=== PATIENT | female | born 1975 | race Caucasian/White ===

== ENCOUNTER 2018-02-06 06:55 | Observation (INO) | payer OTHER ==
[2018-02-06] MEDS ORDERED: ONDANSETRON ODT 8 MG TAB.RAPDIS PO STA (07:25)
[2018-02-06] MEDS ORDERED: SODIUM CHLORIDE 0.9% 500 ML IV STA (07:25)
--- NOTE | 2018-02-06 07:30 | ED ---
General Adult HPI - General Chief complaint: Abdominal Pain Stated complaint: ABD PAIN Time Seen by Provider: 02/06/18 07:00 Source: patient, EMS, RN notes reviewed, old records reviewed Mode of arrival: EMS Limitations: no limitations - History of Present Illness Initial comments: 42-year-old female presenting with epigastric abdominal pain which began approximately 12 hours prior to arrival. Initially pain was mild and has progressively worsened over the past 12 hours. Patient had several episodes of nausea and dry heaving prior to arrival. She has vomited prior to my evaluation once in the emergency department. Denies fever or chills. States the pain is epigastric and radiates to the right side into her back. She has past medical history of cholecystectomy. Denies fever or chills. Denies changes in her bowels. Denies chest pain or shortness of breath. - Related Data Home Medications Medication Instructions Recorded Confirmed No Known Home Medications 02/06/18 02/06/18 Allergies Allergy/AdvReac Type Severity Reaction Status Date / Time banana Allergy Rash/Hives Verified 02/06/18 08:43 tetanus immune globulin Allergy Anaphylaxis Verified 02/06/18 08:43 Review of Systems ROS Statement: Those systems with pertinent positive or pertinent negative responses have been documented in the HPI. ROS Other: All systems not noted in ROS Statement are negative. Past Medical History Past Medical History: No Reported History History of Any Multi-Drug Resistant Organisms: None Reported Past Surgical History: Cholecystectomy, Joint Replacement Past Psychological History: No Psychological Hx Reported Smoking Status: Current every day smoker Past Alcohol Use History: Occasional Past Drug Use History: None Reported General Exam Limitations: no limitations General appearance: alert, in no apparent distress Head exam: Present: atraumatic, normocephalic Eye exam: Present: normal appearance, PERRL ENT exam: Present: normal exam Neck exam: Present: normal inspection. Absent: tenderness, meningismus Respiratory exam: Present: normal lung sounds bilaterally. Absent: respiratory distress, wheezes Cardiovascular Exam: Present: regular rate, normal rhythm GI/Abdominal exam: Present: soft, tenderness (Moderate epigastric tenderness no rebound or guarding). Absent: distended, guarding, rebound Extremities exam: Present: normal inspection, normal capillary refill. Absent: pedal edema Neurological exam: Present: alert, oriented X3, CN II-XII intact. Absent: motor sensory deficit Psychiatric exam: Present: normal affect, normal mood Skin exam: Present: warm, diaphoretic. Absent: cyanosis Course Vital Signs 02/06/18 02/06/18 02/06/18 06:58 08:30 09:17 Temperature 98 F Pulse Rate 78 63 67 Respiratory 18 22 20 Rate Blood Pressure 110/73 132/67 121/69 O2 Sat by Pulse 97 94 L 98 Oximetry 02/06/18 02/06/18 10:03 10:48 Temperature Pulse Rate 62 72 Respiratory 18 18 Rate Blood Pressure 114/59 90/56 O2 Sat by Pulse 96 98 Oximetry - Reevaluation(s) Reevaluation #1: 02/06/18 0930 Patient has severe abdominal pain requiring multiple doses of IV pain medication. EKG Findings - EKG Comments: EKG Findings:: EKG: Sinus rhythm with low voltage QRS, rate of 66, WI interval 108, QRS duration 78, QTC 427, Baseline artifact secondary to tremor, no ST segment elevation or depression Medical Decision Making - Medical Decision Making 42-year-old female with epigastric abdominal pain radiating to her back. Pain initially is moderate to severe, becomes more severe while in the emergency department. EKG is nonischemic. X-rays obtained of the abdomen which is negative for obstruction or free air. CBC and CMP are unremarkable. Lactic acid is normal. Patient's pain becomes very severe, CT angiography is obtained for concern for dissection, this is negative. There is no acute intra- abdominal pathology noted on CT. No definitive cause for the patient's pain is identified. She will be kept in observation for reevaluation and pain control. - Lab Data Result diagrams: 02/06/18 07:53 02/06/18 07:53 Lab Results 02/06/18 02/06/18 02/06/18 Range/Units 07:53 07:53 07:53 WBC 10.6 (3.8-10.6) k/uL RBC 4.36 (3.80-5.40) m/uL Hgb 13.3 (11.4-16.0) gm/dL Hct 40.6 (34.0-46.0) % MCV 93.1 (80.0-100.0) fL MCH 30.5 (25.0-35.0) pg MCHC 32.7 (31.0-37.0) g/dL RDW 13.7 (11.5-15.5) % Plt Count 228 (150-450) k/uL Neutrophils % 73 % Lymphocytes % 21 % Monocytes % 3 % Eosinophils % 1 % Basophils % 0 % Neutrophils # 7.8 H (1.3-7.7) k/uL Lymphocytes # 2.3 (1.0-4.8) k/uL Monocytes # 0.3 (0-1.0) k/uL Eosinophils # 0.1 (0-0.7) k/uL Basophils # 0.0 (0-0.2) k/uL PT (9.0-12.0) sec INR (<1.2) APTT (22.0-30.0) sec Sodium 137 (137-145) mmol/L Potassium 4.6 (3.5-5.1) mmol/L Chloride 110 H (98-107) mmol/L Carbon Dioxide 19 L (22-30) mmol/L Anion Gap 8 mmol/L BUN 10 (7-17) mg/dL Creatinine 0.65 (0.52-1.04) mg/dL Est GFR (CKD-EPI)AfAm >90 (>60 ml/min/1.73 sqM) Est GFR (CKD-EPI)NonAf >90 (>60 ml/min/1.73 sqM) Glucose 104 H (74-99) mg/dL Plasma Lactic Acid Josef 1.5 (0.7-2.0) mmol/L Calcium 9.7 (8.4-10.2) mg/dL Total Bilirubin 0.4 (0.2-1.3) mg/dL AST 24 (14-36) U/L ALT 25 (9-52) U/L Alkaline Phosphatase 86 (38-126) U/L Troponin I (0.000-0.034) ng/mL Total Protein 6.2 L (6.3-8.2) g/dL Albumin 3.6 (3.5-5.0) g/dL Amylase 38 (30-110) U/L Lipase 19 L (23-300) U/L Urine Color Urine Appearance (Clear) Urine pH (5.0-8.0) Ur Specific Lititz (1.001-1.035) Urine Protein (Negative) Urine Glucose (UA) (Negative) Urine Ketones (Negative) Urine Blood (Negative) Urine Nitrite (Negative) Urine Bilirubin (Negative) Urine Urobilinogen (<2.0) mg/dL Ur Leukocyte Esterase (Negative) Urine RBC (0-5) /hpf Urine WBC (0-5) /hpf Ur Squamous Epith Cells (0-4) /hpf Urine Bacteria (None) /hpf Urine Mucus (None) /hpf 02/06/18 02/06/18 02/06/18 Range/Units 07:53 07:53 08:40 WBC (3.8-10.6) k/uL RBC (3.80-5.40) m/uL Hgb (11.4-16.0) gm/dL Hct (34.0-46.0) % MCV (80.0-100.0) fL MCH (25.0-35.0) pg MCHC (31.0-37.0) g/dL RDW (11.5-15.5) % Plt Count (150-450) k/uL Neutrophils % % Lymphocytes % % Monocytes % % Eosinophils % % Basophils % % Neutrophils # (1.3-7.7) k/uL Lymphocytes # (1.0-4.8) k/uL Monocytes # (0-1.0) k/uL Eosinophils # (0-0.7) k/uL Basophils # (0-0.2) k/uL PT 9.6 (9.0-12.0) sec INR 1.0 (<1.2) APTT 23.0 (22.0-30.0) sec Sodium (137-145) mmol/L Potassium (3.5-5.1) mmol/L Chloride (98-107) mmol/L Carbon Dioxide (22-30) mmol/L Anion Gap mmol/L BUN (7-17) mg/dL Creatinine (0.52-1.04) mg/dL Est GFR (CKD-EPI)AfAm (>60 ml/min/1.73 sqM) Est GFR (CKD-EPI)NonAf (>60 ml/min/1.73 sqM) Glucose (74-99) mg/dL Plasma Lactic Acid Josef (0.7-2.0) mmol/L Calcium (8.4-10.2) mg/dL Total Bilirubin (0.2-1.3) mg/dL AST (14-36) U/L ALT (9-52) U/L Alkaline Phosphatase (38-126) U/L Troponin I <0.012 (0.000-0.034) ng/mL Total Protein (6.3-8.2) g/dL Albumin (3.5-5.0) g/dL Amylase (30-110) U/L Lipase (23-300) U/L Urine Color Yellow Urine Appearance Cloudy H (Clear) Urine pH 6.0 (5.0-8.0) Ur Specific Lititz 1.013 (1.001-1.035) Urine Protein Negative (Negative) Urine Glucose (UA) Negative (Negative) Urine Ketones Negative (Negative) Urine Blood Small H (Negative) Urine Nitrite Negative (Negative) Urine Bilirubin Negative (Negative) Urine Urobilinogen <2.0 (<2.0) mg/dL Ur Leukocyte Esterase Moderate H (Negative) Urine RBC 1 (0-5) /hpf Urine WBC 6 H (0-5) /hpf Ur Squamous Epith Cells 5 H (0-4) /hpf Urine Bacteria Rare H (None) /hpf Urine Mucus Occasional H (None) /hpf Disposition Clinical Impression: Intractable abdominal pain Disposition: [facility] Condition: Stable Is patient prescribed a controlled substance at d/c from ED?: No Referrals: Sanam Jensen MD [Primary Care Provider] - 1-2 days Decision to Admit Reason: Admit from EC Decision Date: 02/06/18 Decision Time: 10:30
[2018-02-06] MEDS: MORPHINE SULFATE 4 MG/ML SYRINGE IV STA ×2 (07:56→08:33)
[2018-02-06] MEDS ORDERED: ONDANSETRON 4 MG/2 ML VIAL IVP STA (07:58)
[2018-02-06 08:02] LABS: Basophils % (A) 0 %; Eosinophils # (A) 0.1 k/uL (0-0.7); Eosinophils % (A) 1 %; HCT 40.6 % (34.0-46.0); HGB 13.3 gm/dL (11.4-16.0); Lymphocytes # (A) 2.3 k/uL (1.0-4.8); Lymphocytes % (A) 21 %; MCH 30.5 pg (25.0-35.0); MCHC 32.7 g/dL (31.0-37.0); MCV 93.1 fL (80.0-100.0); Mean Platelet Volume 6.7; Monocytes # (A) 0.3 k/uL (0-1.0); Monocytes % (A) 3 %; Neutrophils # (A) 7.8 k/uL (1.3-7.7); Neutrophils % (A) 73 %; Platelet Count 228 k/uL (150-450); RBC 4.36 m/uL (3.80-5.40); RDW 13.7 % (11.5-15.5); WBC 10.6 k/uL (3.8-10.6)
[2018-02-06 08:12] LABS: Prothrombin Time 9.6 sec (9.0-12.0)
[2018-02-06 08:34] LABS: ALT 25 U/L (9-52); AST 24 U/L (14-36); Albumin 3.6 g/dL (3.5-5.0); Alkaline Phosphatase 86 U/L (38-126); Amylase 38 U/L (30-110); Anion Gap 8 mmol/L; Blood Urea Nitrogen 10 mg/dL (7-17); Calcium 9.7 mg/dL (8.4-10.2); Carbon Dioxide 19 mmol/L (22-30); Chloride 110 mmol/L (98-107); Glucose 104 mg/dL (74-99); Lipase 19 U/L (23-300); Potassium 4.6 mmol/L (3.5-5.1); Sodium 137 mmol/L (137-145); Total Bilirubin 0.4 mg/dL (0.2-1.3); Total Protein 6.2 g/dL (6.3-8.2)
[2018-02-06] MEDS ORDERED: HYDROmorphone 1 MG/ML 1 ML SYRINGE IVP STA (08:45)
--- NOTE | 2018-02-06 08:45 | XR ---
EXAMINATION TYPE: XR KUB DATE OF EXAM: 02/06/2018 8:08 AM CLINICAL HISTORY: Right upper quadrant abdominal pain, vomiting, nausea and dizziness. TECHNIQUE: Single upright image of the abdomen is obtained. COMPARISON: None. FINDINGS: Scattered gas is seen in non-distended small bowel loops. Gas and fecal material is seen in non-distended colon. There is no visceromegaly, pneumoperitoneum, or abnormal calcification apprecia shantal. The lung bases are clear and the osseous structures are intact. Cholecystectomy clips are noted within the right upper quadrant. Right para midline intrauterine device is seen within the pelvis. IMPRESSION: Nonobstructive bowel gas pattern.
[2018-02-06 09:05] LABS: Appearance,Urine Cloudy (Clear); Bacteria,Urine Rare /hpf; Bilirubin,Urine Negative (Negative); Blood,Urine Small (Negative); Color,Urine Yellow; Glucose,Urine (UA) Negative (Negative); Ketones,Urine Negative (Negative); Leukocyte Esterase,Urine Moderate (Negative); Mucus,Urine Occasional /hpf; Nitrite,Urine Negative (Negative); Protein,Urine Negative (Negative); RBC,Urine 1 /hpf (0-5); Specific Gravity,Urine 1.013 (1.001-1.035); Squamous Epithelial Cell,Urine 5 /hpf (0-4); Urobilinogen,Urine <2.0 mg/dL (<2.0); WBC,Urine 6 /hpf (0-5)
--- NOTE | 2018-02-06 10:34 | CT ---
EXAMINATION TYPE: CT angio thor/abd pel aorta DATE OF EXAM: 02/06/2018 COMPARISON: None HISTORY: Severe abdominal pain CT DLP: 1932.3 mGycm, Automated exposure control for dose reduction was used. CONTRAST: Performed injected with 100 mL of Isovue 370. TECHNIQUE: Axial images were obtained at 5 mm thick sections. Reconstructed images are reviewed on [employer] computer in the coronal plane. Three-D reconstructed images performed separately on the [employer] puter by the technologist are performed. 2-D MIP imaging is reviewed. FINDINGS: Portion of the thyroid visualized is normal. No suspicious lung nodules or focal infiltrates are present. No enlarged mediastinal or hilar adenopathy is evident. The ascending aorta diameter at the level o f the main pulmonary artery is 2.8 cm. The main pulmonary artery diameter at the bifurcation is 2.[address] sections are obtained through the upper abdomen. Abdomen is essentially unremarkable. Gall bladder is surgically absent. Noncontrast imaging through the liver and spleen are unremarkable. Panc reas is unremarkable. Adrenal glands are normal. Kidneys are normal without masses cysts or hydroneph rosis. Very minimal vascular calcifications within the aorta. Vena cava is normal. Noncontrast imaging loops of bowel are normal. IUD is within the uterus. Urinary bladder is decompressed with limited evaluation. The appendix is visualized is normal. Three-D reconstructed images are reviewed. IMPRESSIONS: 1. No suspicious changes within the thoracic or abdominal aorta. No dissection is evident. No aneurys mal dilatation.
[2018-02-06] MEDS ORDERED: PANTOPRAZOLE 40 MG/10 ML VIAL IVP STA (10:49)
[2018-02-06] MEDS ORDERED: NALOXONE 0.4 MG/ML 1 ML VIAL IV PRN (10:56)
[2018-02-06] MEDS ORDERED: ONDANSETRON 4 MG/2 ML VIAL IVP PRN (10:56)
[2018-02-06] MEDS ORDERED: HYDROmorphone 0.5 MG/0.5 ML SYRINGE IVP PRN (10:56)
[2018-02-06] MEDS ORDERED: ACETAMINOPHEN TAB 325 MG TAB PO PRN (12:42)
--- NOTE | 2018-02-06 12:42 | P.HPIM ---
History of Present Illness H&P Date: 02/06/18 Chief Complaint: Epigastric pain This is a 42-year-old female with no significant past medical history who presented to the emergency room with severe epigastric pain. Patient said that her pain started a few hours prior to her arrival to the emergency room. Pain was mostly in the epigastric area and radiating to the right side of her abdomen and to her back. She described her pain as sharp. Said that he was mild initially but subsequently got a lot worse. She is rating her pain as '' 50 out of 10''in severity on a pain scale. She said that her pain was associated with nausea and one episode of vomiting in the emergency room. She reported having normal bowel movements otherwise. She denies any fevers or chills. Denies chest pain. No shortness of breath. No alcohol use. No NSAIDs use. Patient said that she had 2 or 3 similar episodes within the past 4 -5 month that she attributed to possible gas and bloating. Those episodes were a lot milder. Patient was evaluated in the emergency room and was treated with IV morphine. All of her lab work was unremarkable. The scan of the abdomen was unremarkable. Patient also underwent CT angiogram with no evidence of dissection. She is currently rating her pain as 4 out of 10. She has a history of cholecystectomy more than 10 years ago. She was seen and examined by me in the emergency room. Plan to place her on observation for GI consultation. Review of Systems Review of system: 14 points review of systems were obtained and were negative except to what were mentioned in the HPI. Past Medical History Past Medical History: No Reported History History of Any Multi-Drug Resistant Organisms: None Reported Past Surgical History: Cholecystectomy, Joint Replacement Past Psychological History: No Psychological Hx Reported Smoking Status: Current every day smoker Past Alcohol Use History: Occasional Past Drug Use History: None Reported - Past Family History Mother Family Medical History: No Reported History Medications and Allergies Home Medications Medication Instructions Recorded Confirmed Type No Known Home Medications 02/06/18 02/06/18 History Allergies Allergy/AdvReac Type Severity Reaction Status Date / Time banana Allergy Rash/Hives Verified 02/06/18 08:43 nicotine Allergy Rash/Hives Verified 02/06/18 12:33 tetanus immune globulin Allergy Anaphylaxis Verified 02/06/18 08:43 Physical Exam Vitals: Vital Signs Temp Pulse Pulse Resp BP BP Pulse Ox 02/06/18 12:17 98.1 F 72 16 124/75 98 02/06/18 12:03 97.4 F L 69 18 105/56 96 02/06/18 10:48 72 18 90/56 98 02/06/18 10:03 62 18 114/59 96 02/06/18 09:17 67 20 121/69 98 02/06/18 08:30 63 22 132/67 94 L 02/06/18 06:58 98 F 78 18 110/73 97 Intake and Output 02/05/18 02/06/18 02/06/18 22:59 06:59 14:59 Other: Weight 81.647 kg 90.4 kg General: The patient is awake and alert, in no distress Eye: there is normal conjunctiva bilaterally. Neck: The neck is supple, there is no JVD. Cardiovascular: Normal S1-S2, no S3-S4, no murmurs. Respiratory: Lungs clear to auscultation bilaterally Gastrointestinal: Abdomen is soft, nondistended, mild to moderate tenderness in the epigastric area Musculoskeletal: There is no pedal edema. Neurological:. Speech is normal. Skin: Skin is warm and dry Results CBC & Chem 7: 02/06/18 07:53 02/06/18 07:53 Labs: Abnormal Lab Results - Last 24 Hours (Table) 02/06/18 02/06/18 02/06/18 Range/Units 07:53 07:53 08:40 Neutrophils # 7.8 H (1.3-7.7) k/uL Chloride 110 H (98-107) mmol/L Carbon Dioxide 19 L (22-30) mmol/L Glucose 104 H (74-99) mg/dL Total Protein 6.2 L (6.3-8.2) g/dL Lipase 19 L (23-300) U/L Urine Appearance Cloudy H (Clear) Urine Blood Small H (Negative) Ur Leukocyte Esterase Moderate H (Negative) Urine WBC 6 H (0-5) /hpf Ur Squamous Epith Cells 5 H (0-4) /hpf Urine Bacteria Rare H (None) /hpf Urine Mucus Occasional H (None) /hpf Thrombosis Risk Factor Assmnt - Choose All That Apply Any of the Below Risk Factors Present?: Yes Each Factor Represents 1 point: Age 41-60 years, Obesity (BMI >25) Thrombosis Risk Factor Assessment Total Risk Factor Score: 2 Thrombosis Risk Factor Assessment Level: Low Risk Assessment and Plan Assessment: 1. Severe epigastric pain, now improved. Exact etiology unclear. Need to rule out peptic ulcer disease. Continue IV Protonix for now. Gastroenterology consulted. All of her lab work is within acceptable range. Computed tomography scan of the abdomen with no acute findings. We will continue clear liquids for now. 2. Uncomplicated urinary tract infection, we'll start IV ceftriaxone 1 g once a day 3. Chronic migraine headache 4. DVT prophylaxis with subcu heparin Today, I reviewed her medication list and lab work results. I updated the patient about her current clinical condition. Awaiting GI evaluation. Continue IV fluid hydration, antiemetic, and pain control as needed.
[2018-02-06] MEDS: SODIUM CHLORIDE 0.9% 1,000 ML IV SCH (12:49)
[2018-02-06] MEDS ORDERED: cefTRIAXone IN SWFI 1,000 MG/10 ML SYRINGE IVP SCH (13:00)
--- NOTE | 2018-02-06 15:18 | P.CONS ---
History of Present Illness - Reason for Consult Consult date: 02/06/18 Abdominal pain Requesting physician: Isatu Wilks - History of Present Illness 42-year-old female with a history of cholecystectomy nicotine cigarette dependency admitted with acute on chronic epigastric abdominal pain for the last 3 or 4 months as well as uncomplicated UTI. 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 3-4 months ago she had some intermittent vague mid abdominal/midepigastric discomfort without fever chills hematemesis hematochezia melena diarrhea or constipation. Nausea with dry heaves. Denies chest pain or shortness of breath. No history of this type of pain. No history of EGD colonoscopy. Hemoglobin 13.3. White count 10.6. INR 1.0. BUN 10. Creatinine 0.6. LFTs lipase within normal limits. Thoracic CT no dissection and no aneurysmal dilatation. Review of Systems Constitutional: Denies fever, chills, sweats, weight gain, or loss. HEENT: Negative for migraines, blurred vision or loss, earaches, drainage, tinnitus, oral mucosal lesions, dysphagia, or odynophagia. CARDIAC: Negative for chest pain, arrhythmias, or palpitation. RESPIRATORY: Negative for shortness of breath, hemoptysis, cough, or sputum production. GI: See HPI for pertinent findings. : Negative for hematuria, urgency, frequency, polyuria, or dysuria. GYNc: Denies possibility of . Negative vaginal discharge. MUSCULOSKELETAL: Negative for muscle aches, swelling, arthritis, and arthralgias. NEUROLOGIC: Negative for stroke or TIA. ENDOCRINE: Negative for thyroid problems. SKIN: Negative for rash or itching. PSYCHIATRIC: Negative history for depression and anxiety Past Medical History Past Medical History: No Reported History History of Any Multi-Drug Resistant Organisms: None Reported Past Surgical History: Cholecystectomy, Joint Replacement Past Psychological History: No Psychological Hx Reported Smoking Status: Current every day smoker Past Alcohol Use History: Occasional Past Drug Use History: None Reported - Past Family History Mother Family Medical History: No Reported History Medications and Allergies Home Medications Medication Instructions Recorded Confirmed Type No Known Home Medications 02/06/18 02/06/18 History Allergies Allergy/AdvReac Type Severity Reaction Status Date / Time banana Allergy Rash/Hives Verified 02/06/18 08:43 nicotine Allergy Rash/Hives Verified 02/06/18 12:33 tetanus immune globulin Allergy Anaphylaxis Verified 02/06/18 08:43 Physical Exam Vitals: Vital Signs Temp Pulse Pulse Resp BP BP Pulse Ox 02/06/18 12:17 98.1 F 72 16 124/75 98 02/06/18 12:03 97.4 F L 69 18 105/56 96 02/06/18 10:48 72 18 90/56 98 02/06/18 10:03 62 18 114/59 96 02/06/18 09:17 67 20 121/69 98 02/06/18 08:30 63 22 132/67 94 L 02/06/18 06:58 98 F 78 18 110/73 97 Intake and Output 02/06/18 02/06/18 02/06/18 06:59 14:59 22:59 Other: # Voids 1 Weight 81.647 kg 90.4 kg General appearance: The patient is alert, oriented, in no acute distress. HET: Head is normocephalic and atraumatic. Pupils are equal and reactive. Oropharynx is clear without lesions. Neck: Supple without lymphadenopathy. Trachea midline. Heart: S1 S2. Regular rate and rhythm. Lungs: No crackles or wheezes are heard. Abdomen: Soft, very mild tenderness in the midepigastrium, nondistended with bowel sounds. No peritoneal signs. No palpable organomegaly or masses. Extremities: Normal skin color and turgor. No cyanosis, rash, ulceration, clubbing, or edema. Radial and pedal pulses are 2/4 bilaterally. Neurological: No focal deficits. Strength and sensation are grossly intact. Results CBC & Chem 7: 02/06/18 07:53 02/06/18 07:53 Labs: Abnormal Lab Results - Last 24 Hours (Table) 02/06/18 02/06/18 02/06/18 Range/Units 07:53 07:53 08:40 Neutrophils # 7.8 H (1.3-7.7) k/uL Chloride 110 H (98-107) mmol/L Carbon Dioxide 19 L (22-30) mmol/L Glucose 104 H (74-99) mg/dL Total Protein 6.2 L (6.3-8.2) g/dL Lipase 19 L (23-300) U/L Urine Appearance Cloudy H (Clear) Urine Blood Small H (Negative) Ur Leukocyte Esterase Moderate H (Negative) Urine WBC 6 H (0-5) /hpf Ur Squamous Epith Cells 5 H (0-4) /hpf Urine Bacteria Rare H (None) /hpf Urine Mucus Occasional H (None) /hpf Comments: Thoracic CT report reviewed by Dr. Dobson Assessment and Plan (1) Intractable abdominal pain Narrative/Plan: 42-year-old female presents with epigastric abdominal pain uncomplicated UTI. Etiology unclear possible GERD possible peptic ulcer disease possible IBS patient has been under stress with recent passing of her mother 6 weeks ago and his primary caregiver for her father. Current Visit: Yes Status: Acute Code(s): R10.9 - UNSPECIFIED ABDOMINAL PAIN SNOMED Code(s): 71815837 Plan: 1. Healthy heart diet. Protonix 40 mg IV daily. Bentyl 10 mg 3 times a day. Inpatient endoscopy not planned at this time contingent on clinical course. Will follow closely with you. Thank you for this kind referral and the opportunity to participate in the care of your patient. This consultation was discussed with Dr. Dobson. The impression and plan of care have been directed as dictated.
[2018-02-06] MEDS: DICYCLOMINE 10 MG CAP PO SCH ×2 (15:29→20:55)
[2018-02-06] MEDS ORDERED: HYDROmorphone 2 MG TAB PO PRN (20:04)
[2018-02-06] MEDS: HEPARIN SODIUM,PORCINE 5,000 UNIT/ML 1 ML VIAL SQ SCH (20:56)
[2018-02-07 02:13] VITALS: RESP 18; TEMP 98.5
[2018-02-07] MEDS ORDERED: PANTOPRAZOLE 40 MG/10 ML VIAL IVP SCH (09:00)
[2018-02-07 09:30] LABS: ALT 24 U/L (9-52); AST 25 U/L (14-36); Albumin 3.2 g/dL (3.5-5.0); Alkaline Phosphatase 78 U/L (38-126); Anion Gap 6 mmol/L; Blood Urea Nitrogen 5 mg/dL (7-17); Calcium 9.1 mg/dL (8.4-10.2); Carbon Dioxide 23 mmol/L (22-30); Chloride 110 mmol/L (98-107); Glucose 109 mg/dL (74-99); Sodium 139 mmol/L (137-145); Total Bilirubin 0.2 mg/dL (0.2-1.3); Total Protein 5.7 g/dL (6.3-8.2)
[2018-02-07 09:45] LABS: Basophils % (A) 0 %; Eosinophils # (A) 0.1 k/uL (0-0.7); Eosinophils % (A) 2 %; HCT 37.8 % (34.0-46.0); HGB 12.1 gm/dL (11.4-16.0); Lymphocytes # (A) 1.9 k/uL (1.0-4.8); Lymphocytes % (A) 23 %; MCH 29.9 pg (25.0-35.0); MCHC 31.9 g/dL (31.0-37.0); MCV 93.8 fL (80.0-100.0); Mean Platelet Volume 7.4; Monocytes # (A) 0.2 k/uL (0-1.0); Monocytes % (A) 3 %; Neutrophils # (A) 5.9 k/uL (1.3-7.7); Neutrophils % (A) 71 %; Platelet Count 215 k/uL (150-450); RBC 4.03 m/uL (3.80-5.40); RDW 13.6 % (11.5-15.5); WBC 8.2 k/uL (3.8-10.6)
--- NOTE | 2018-02-07 10:29 | PN ---
PROGRESS NOTE The patient is a 42-year-old pleasant white female admitted to hospital with acute onset of severe epigastric pain that started 2 days ago. The pain was very intense in the epigastric and the left upper quadrant area associated with some nausea but no emesis. Came to the emergency room, had a CT of the abdomen and pelvis done that was unremarkable. She had routine labs done which were all within normal limits. She is feeling much better today. She was started on IV Protonix 40 mg q.12 hours yesterday, on a liquid diet tolerating well. PHYSICAL EXAMINATION: She appears comfortable in no apparent distress. Vital signs stable. Blood pressure is 105/56, pulse rate 82 and afebrile. HEENT examination unremarkable. Sclerae anicteric. Oral cavity no lesions. Neck no jugular venous distention or lymph node enlargement. Chest was clear to auscultation. HEART: Regular rate and rhythm. ABDOMEN: Soft. Mild tenderness in the epigastric area. Bowel sounds are positive. Extremities no pedal edema. Skin no rashes. NEUROLOGIC: Alert and oriented x3. No focal deficits. LABS: From today AST, ALT, T-bilirubin and alkaline phosphatase are normal. CBC is still pending. IMPRESSION: The patient presents to hospital with acute onset of severe epigastric pain and heartburn of 2 days duration, which presently has significantly improved on proton pump inhibitors and Zofran as needed. CT of the abdomen is negative. Repeat labs from today show normal LFTs, status post gallbladder surgery many years ago for gallbladder dyskinesia. RECOMMENDATIONS: 1. Advance diet as tolerated. 2. Continue with Protonix 40 mg daily. 3. Since her symptoms have resolved, she can be discharged home with an outpatient follow up in 3-4 weeks. MMODL / IJN: [id number] /
[2018-02-07] MEDS: HEPARIN SODIUM,PORCINE 5,000 UNIT/ML 1 ML VIAL SQ SCH (10:33)
[2018-02-07] MEDS: DICYCLOMINE 10 MG CAP PO SCH (10:33)
[2018-02-07] MEDS: SODIUM CHLORIDE 0.9% 1,000 ML IV SCH (10:42)
--- NOTE | 2018-02-07 11:05 | P.DS ---
Providers Date of admission: 02/06/18 10:56 Expected date of discharge: 02/07/18 Attending physician: Isatu Wilks Consults: 02/06/18 12:36 Consult Physician Routine Consulting Provider: Laith Valencia Consult Reason/Comments: Severe epigastric pain, rule out PUD Do you want consulting provider notified?: Yes Primary care physician: Sanam Jensen Hospital Course: 1. Severe epigastric pain, now improved. Exact etiology unclear. Lab work including liver function tests and lipase within normal range. Patient has a history of cholecystectomy. Computed tomography scan of the abdomen with no acute findings. Gastroenterology consulted, thought to be attributed to IBS- like symptoms secondary to severe stress patient is having after her mother couple of weeks ago. Plan for trial of Bentyl and Protonix. Follow-up with GI in the office. 2. Uncomplicated urinary tract infection, given 1 dose of IV ceftriaxone 1 g. would finish 3 days course of Keflex at home. 3. Chronic migraine headache For further details about this hospitalization please refer to the patient and electronic chart. Patient will be discharged in stable condition. On the day of discharge she was pain-free. She was tolerating diet with no difficulty. Patient Condition at Discharge: Fair Plan - Discharge Summary Discharge Rx Participant: No New Discharge Prescriptions: New Cephalexin [Keflex] 500 mg PO Q12HR #6 cap Dicyclomine [Bentyl] 10 mg PO TID #30 cap Pantoprazole Sodium [Protonix] 20 mg PO AC-BRKFST #30 tablet. Discharge Medication List Cephalexin [Keflex] 500 mg PO Q12HR #6 cap 02/07/18 [Rx] Dicyclomine [Bentyl] 10 mg PO TID #30 cap 02/07/18 [Rx] Pantoprazole Sodium [Protonix] 20 mg PO AC-BRKFST #30 tablet. 02/07/18 [Rx] Follow up Appointment(s)/Referral(s): Qing Dobson MD [STAFF PHYSICIAN] - 2 Weeks Sanam Jensen MD [Primary Care Provider] - 1-2 days Discharge Disposition: HOME SELF-CARE
[2018-02-07 11:57] VITALS: BP 102/65; PULSE 69
== END 2018-02-07 12:25 | disposition home or self-care (01) ==
LOC: EC 06:55 → 6PED 10:56
PROVIDERS: ADMIT Internal Medicine; ATTEND Internal Medicine
DX: R10.13 Epigastric pain (principal); N39.0 Urinary tract infection, site not specified; G89.29 Other chronic pain; F43.9 Reaction to severe stress, unspecified; G43.909 Migraine, unspecified, not intractable, without status migrainosus; R11.2 Nausea with vomiting, unspecified; R61 Generalized hyperhidrosis; E66.9 Obesity, unspecified; Z68.41 Body mass index [BMI] 40.0-44.9, adult; F17.210 Nicotine dependence, cigarettes, uncomplicated; Z91.048 Other nonmedicinal substance allergy status; Z91.018 Allergy to other foods; Z88.7 Allergy status to serum and vaccine; Z90.49 Acquired absence of other specified parts of digestive tract; Z96.60 Presence of unspecified orthopedic joint implant
CPT/HCPCS: 99285 ×2; 96374 ×2; 96375 ×5; 96376 ×3; 96372 ×2; 36415; 93005; 80053 ×2; 82150; 83605; 83690; 84484; 85025 ×2; 85610; 85730; 81001; 74018; 71275; 74174; G0378 ×2; J2270; J1644 ×2; J2405; J0696; J1170; C9113 ×2; Q9967

== ENCOUNTER 2018-02-09 20:32 | Observation (INO) | payer OTHER ==
[2018-02-09] MEDS ORDERED: SODIUM CHLORIDE 0.9% 500 ML IV STA (21:23)
[2018-02-09] MEDS ORDERED: HYDROmorphone 1 MG/ML 1 ML SYRINGE IVP STA (21:23)
[2018-02-09] MEDS ORDERED: FAMOTIDINE 20 MG/2 ML VIAL IV STA (21:24)
--- NOTE | 2018-02-09 21:27 | ED ---
General Adult HPI - General Chief complaint: Abdominal Pain Stated complaint: abdominal pain-revisit Time Seen by Provider: 02/09/18 21:16 Source: patient, family, RN notes reviewed Mode of arrival: wheelchair Limitations: no limitations - History of Present Illness Initial comments: Patient is a pleasant 42-year-old female presenting to the emergency Department with complaints of abdominal discomfort. Onset of symptoms was around 8 PM tonight. Symptoms started abruptly and have been severe. Discomfort is the epigastric region. Discomfort does radiate mostly across the abdomen however somewhat to the back and lower abdomen and up towards chest. Patient did have similar symptoms 3 days ago that lasted around 24 hours and resolved. Patient did follow-up with her doctor today. No history of symptoms prior to 3 days ago. No nausea vomiting at this time. Patient has had several episodes of diarrhea. - Related Data Previous Rx's Medication Instructions Recorded Cephalexin [Keflex] 500 mg PO Q12HR #6 cap 02/07/18 Dicyclomine [Bentyl] 10 mg PO TID #30 cap 02/07/18 Pantoprazole Sodium [Protonix] 20 mg PO AC-BRKFST #30 tablet. 02/07/18 Allergies Allergy/AdvReac Type Severity Reaction Status Date / Time banana Allergy Rash/Hives Verified 02/09/18 22:01 nicotine Allergy Rash/Hives Verified 02/09/18 22:01 tetanus immune globulin Allergy Anaphylaxis Verified 02/09/18 22:01 Review of Systems ROS Statement: Those systems with pertinent positive or pertinent negative responses have been documented in the HPI. ROS Other: All systems not noted in ROS Statement are negative. Constitutional: Denies: fever Eyes: Denies: eye pain ENT: Denies: ear pain Respiratory: Denies: cough Cardiovascular: Denies: palpitations Endocrine: Denies: fatigue Gastrointestinal: Reports: abdominal pain, diarrhea. Denies: nausea, vomiting Genitourinary: Denies: dysuria Musculoskeletal: Denies: arthralgia Skin: Denies: rash Neurological: Denies: weakness Past Medical History Past Medical History: No Reported History History of Any Multi-Drug Resistant Organisms: None Reported Past Surgical History: Cholecystectomy, Joint Replacement Past Psychological History: No Psychological Hx Reported Smoking Status: Current every day smoker Past Alcohol Use History: Occasional Past Drug Use History: None Reported - Past Family History Mother Family Medical History: No Reported History General Exam Limitations: no limitations General appearance: alert, other (Appears uncomfortable) Head exam: Present: atraumatic Eye exam: Present: normal appearance, PERRL ENT exam: Present: normal oropharynx Neck exam: Present: normal inspection Respiratory exam: Present: normal lung sounds bilaterally. Absent: chest wall tenderness Cardiovascular Exam: Present: regular rate, normal rhythm Expanded Peripheral pulses: 2+: Posterior Tibialis (R), Posterior Tibialis (L), Dorsalis Pedis (R), Dorsalis Pedis (L) GI/Abdominal exam: Present: soft, tenderness (Moderate to severe tenderness in the epigastric region, some moderate tenderness in the upper abdomen and diffusely.), guarding, normal bowel sounds. Absent: distended, rebound, rigid, pulsatile mass Extremities exam: Present: normal inspection Neurological exam: Present: alert Psychiatric exam: Present: normal affect, normal mood Skin exam: Present: normal color Course Vital Signs 02/09/18 02/09/18 20:44 22:02 Temperature 97.9 F Pulse Rate 97 91 Respiratory 24 22 Rate Blood Pressure 133/71 113/55 O2 Sat by Pulse 96 100 Oximetry EKG Findings - EKG Comments: EKG Findings:: Normal sinus rhythm 77. DC 1:30. QRS 70. QT 394. QTC 445. Normal axis. Low QRS with this. No acute ST change. Medical Decision Making - Medical Decision Making Patient reevaluated and only mild improvement. Patient and family updated on results and plan. Case discussed in detail with Dr. Fairbanks, who will admit for [facility] physician who recently had admitted this patient. - Lab Data Result diagrams: 02/09/18 22:00 02/09/18 22:00 Lab Results 02/09/18 02/09/18 02/09/18 Range/Units 22:00 22:00 22:00 WBC 12.1 H (3.8-10.6) k/uL RBC 4.31 (3.80-5.40) m/uL Hgb 13.2 (11.4-16.0) gm/dL Hct 40.0 (34.0-46.0) % MCV 92.9 (80.0-100.0) fL MCH 30.6 (25.0-35.0) pg MCHC 32.9 (31.0-37.0) g/dL RDW 13.9 (11.5-15.5) % Plt Count 230 (150-450) k/uL Neutrophils % 70 % Lymphocytes % 24 % Monocytes % 3 % Eosinophils % 2 % Basophils % 0 % Neutrophils # 8.5 H (1.3-7.7) k/uL Lymphocytes # 2.9 (1.0-4.8) k/uL Monocytes # 0.4 (0-1.0) k/uL Eosinophils # 0.2 (0-0.7) k/uL Basophils # 0.1 (0-0.2) k/uL PT (9.0-12.0) sec INR (<1.2) APTT (22.0-30.0) sec Sodium 141 (137-145) mmol/L Potassium 3.9 (3.5-5.1) mmol/L Chloride 108 H (98-107) mmol/L Carbon Dioxide 24 (22-30) mmol/L Anion Gap 9 mmol/L BUN 13 (7-17) mg/dL Creatinine 0.70 (0.52-1.04) mg/dL Est GFR (CKD-EPI)AfAm >90 (>60 ml/min/1.73 sqM) Est GFR (CKD-EPI)NonAf >90 (>60 ml/min/1.73 sqM) Glucose 110 H (74-99) mg/dL Plasma Lactic Acid Josef (0.7-2.0) mmol/L Calcium 10.0 (8.4-10.2) mg/dL Total Bilirubin 0.3 (0.2-1.3) mg/dL AST 32 (14-36) U/L ALT 28 (9-52) U/L Alkaline Phosphatase 89 (38-126) U/L Total Creatine Kinase 52 (30-135) U/L CK-MB (CK-2) 0.4 (0.0-2.4) ng/mL CK-MB (CK-2) Rel Index 0.8 Troponin I <0.012 (0.000-0.034) ng/mL Total Protein 6.8 (6.3-8.2) g/dL Albumin 4.0 (3.5-5.0) g/dL Amylase 42 (30-110) U/L Lipase 32 (23-300) U/L 02/09/18 02/09/18 Range/Units 22:00 22:00 WBC (3.8-10.6) k/uL RBC (3.80-5.40) m/uL Hgb (11.4-16.0) gm/dL Hct (34.0-46.0) % MCV (80.0-100.0) fL MCH (25.0-35.0) pg MCHC (31.0-37.0) g/dL RDW (11.5-15.5) % Plt Count (150-450) k/uL Neutrophils % % Lymphocytes % % Monocytes % % Eosinophils % % Basophils % % Neutrophils # (1.3-7.7) k/uL Lymphocytes # (1.0-4.8) k/uL Monocytes # (0-1.0) k/uL Eosinophils # (0-0.7) k/uL Basophils # (0-0.2) k/uL PT 9.5 (9.0-12.0) sec INR 1.0 (<1.2) APTT 22.4 (22.0-30.0) sec Sodium (137-145) mmol/L Potassium (3.5-5.1) mmol/L Chloride (98-107) mmol/L Carbon Dioxide (22-30) mmol/L Anion Gap mmol/L BUN (7-17) mg/dL Creatinine (0.52-1.04) mg/dL Est GFR (CKD-EPI)AfAm (>60 ml/min/1.73 sqM) Est GFR (CKD-EPI)NonAf (>60 ml/min/1.73 sqM) Glucose (74-99) mg/dL Plasma Lactic Acid Josef 2.1 H* (0.7-2.0) mmol/L Calcium (8.4-10.2) mg/dL Total Bilirubin (0.2-1.3) mg/dL AST (14-36) U/L ALT (9-52) U/L Alkaline Phosphatase (38-126) U/L Total Creatine Kinase (30-135) U/L CK-MB (CK-2) (0.0-2.4) ng/mL CK-MB (CK-2) Rel Index Troponin I (0.000-0.034) ng/mL Total Protein (6.3-8.2) g/dL Albumin (3.5-5.0) g/dL Amylase (30-110) U/L Lipase (23-300) U/L - Radiology Data Radiology results: report reviewed (Computed tomography scan of the abdomen pelvis shows no acute process) Disposition Clinical Impression: Intractable abdominal pain Disposition: ADMITTED IP TO THIS [facility] Referrals: Sanam Jensen MD [Primary Care Provider] - 1-2 days Decision Time: 23:08
[2018-02-09 22:11] LABS: Basophils # (A) 0.1 k/uL (0-0.2); Basophils % (A) 0 %; Eosinophils # (A) 0.2 k/uL (0-0.7); Eosinophils % (A) 2 %; HGB 13.2 gm/dL (11.4-16.0); Lymphocytes # (A) 2.9 k/uL (1.0-4.8); Lymphocytes % (A) 24 %; MCH 30.6 pg (25.0-35.0); MCHC 32.9 g/dL (31.0-37.0); MCV 92.9 fL (80.0-100.0); Monocytes # (A) 0.4 k/uL (0-1.0); Monocytes % (A) 3 %; Neutrophils # (A) 8.5 k/uL (1.3-7.7); Neutrophils % (A) 70 %; Platelet Count 230 k/uL (150-450); RBC 4.31 m/uL (3.80-5.40); RDW 13.9 % (11.5-15.5); WBC 12.1 k/uL (3.8-10.6)
[2018-02-09 22:20] LABS: Partial Thromboplastin Time 22.4 sec (22.0-30.0); Prothrombin Time 9.5 sec (9.0-12.0)
[2018-02-09 22:21] LABS: ALT 28 U/L (9-52); AST 32 U/L (14-36); Alkaline Phosphatase 89 U/L (38-126); Amylase 42 U/L (30-110); Anion Gap 9 mmol/L; Blood Urea Nitrogen 13 mg/dL (7-17); Carbon Dioxide 24 mmol/L (22-30); Chloride 108 mmol/L (98-107); Glucose 110 mg/dL (74-99); Lipase 32 U/L (23-300); Potassium 3.9 mmol/L (3.5-5.1); Sodium 141 mmol/L (137-145); Total Bilirubin 0.3 mg/dL (0.2-1.3); Total Protein 6.8 g/dL (6.3-8.2)
[2018-02-09] MEDS ORDERED: ONDANSETRON 4 MG/2 ML VIAL IVP STA (22:28)
[2018-02-09] MEDS ORDERED: LORazepam 2 MG/ML INJ IV STA (22:28)
[2018-02-09 22:33] LABS: Creatine Kinase 52 U/L (30-135)
[2018-02-09 22:46] LABS: Creatine Kinase MB 0.4 ng/mL (0.0-2.4); Troponin I <0.012 ng/mL (0.000-0.034)
--- NOTE | 2018-02-09 23:00 | CT ---
EXAMINATION TYPE: CT abdomen pelvis w con DATE OF EXAM: 02/09/2018 COMPARISON: 04/30/2010 HISTORY: Abdominal pain CT DLP: 1710 mGycm Automated exposure control for dose reduction was used. TECHNIQUE: Helical acquisition of images was performed from the lung bases through the pelvis. CONTRAST: Performed without Oral Contrast and with IV Contrast, patient injected with 100 mL of Isovue 300. FINDINGS: Lung bases are clear. There is no pleural effusion. Heart size is normal. Liver spleen pancreas appear normal. There are clips from cholecystectomy. There is no adrenal mass. Bile ducts are not dilated. Kidneys show satisfactory contrast opacification. There is no hydronephro sis. There is no retroperitoneal adenopathy. There is no ascites. There is no intestinal wall thicken ing. There are no dilated loops. Uterus is anteverted. Bony structures are intact. There is no eviden ce of free air. IUD is noted. Appendix appears normal. IMPRESSION: NEGATIVE CT SCAN OF THE ABDOMEN AND PELVIS. NO ADVERSE CHANGE COMPARED TO OLD EXAM.
[2018-02-09] MEDS ORDERED: MAG HYDROX/AL HYDROX/SIMETH 30 ML, HYOSCYAMINE ELIXIR 10 ML, CIMETIDINE HCL 300 MG, LID... PO STA ×4 (23:05)
[2018-02-09] MEDS ORDERED: HYDROmorphone 1 MG/ML 1 ML SYRINGE IVP PRN (23:08)
[2018-02-09] MEDS ORDERED: ONDANSETRON 4 MG/2 ML VIAL IVP PRN (23:08)
[2018-02-09] MEDS ORDERED: LORazepam 2 MG/ML INJ IV PRN (23:08)
[2018-02-09] MEDS ORDERED: NALOXONE 0.4 MG/ML 1 ML VIAL IV PRN (23:08)
[2018-02-09] MEDS ORDERED: MAG HYDROX/AL HYDROX/SIMETH 30 ML CUP PO PRN (23:50)
[2018-02-09] MEDS ORDERED: DOCUSATE 100 MG CAP PO PRN (23:54)
[2018-02-09] MEDS: SODIUM CHLORIDE 0.9% 1,000 ML IV SCH (23:54)
[2018-02-09] MEDS ORDERED: DICYCLOMINE 10 MG CAP PO PRN (23:54)
[2018-02-10 00:19] VITALS: BMI 40.1
--- NOTE | 2018-02-10 00:57 | P.HPIM ---
History of Present Illness H&P Date: 02/09/18 Chief Complaint: epigastric abd pain 42-year-old female with no significant past medical history however recently was admitted to the hospital for epigastric abdominal pain which resolved on insulin with supportive care per tonic some Bentyl patient was discharged to follow-up with GI as now patient for possible upper endoscopy. Patient was discharged on Friday noon she was doing fine on Friday and Friday however today on Friday she said she woke up with some epigastric abdominal pain she rates it at 2 out of 10 in severity, however it Progressing and Worsening It Was Associated with 3-4 Attacks of Loose Bowel Movements Nonbloody No Melena. She Reports That There Is No Specific Aggravating or Relieving Factor However As the Day Progressed the Pain Got Worse She Saw Her PCP Today Who Recommended Doing an Endoscopy to Rule Out Ulcers and Colon Cancer. After Patient Went Home Had Dinner and Then Later the Pain Got Worse to a 10 Out Of 10 in Severity and Decided to Come to the Hospital. Patient Denies Any Nausea or Vomiting Denies Any Fevers or Chills Denies Any Chest Pain or Trouble Breathing Pain Is Localized to the Epigastric Region Sharp in Nature Stabbing 10 Out Of 10 in Severity Nonradiating. She Reports Sometimes She Gets Attack That Goes to the Lower Belly but It's Mainly in the Epigastric Region. Denies Any Urinary Symptoms. She Denies Any Unsanitary Source of Food, Denies Any NSAIDs. Denies Any History of Ulcers. She Reports History of Cholecystectomy Years Ago. In the Emergency Department Blood Work Was Unremarkable, CAT Scan of the Abdomen Was Unremarkable. Patient Admitted under Observation for Further Management and for GI Reevaluation Possibly Patient Will Be Offered Upper Endoscopy Review of Systems Pertinent positives as noted in HPI. All other systems were reviewed and are negative Past Medical History Past Medical History: No Reported History History of Any Multi-Drug Resistant Organisms: None Reported Past Surgical History: Cholecystectomy, Joint Replacement Past Psychological History: No Psychological Hx Reported Smoking Status: Current every day smoker Past Alcohol Use History: Occasional Past Drug Use History: None Reported - Past Family History Mother Family Medical History: No Reported History Additional Family Medical History / Comment(s): Patient reports history of cancer in the family including breast cancer, liver cancer, brain cancer, prostate cancer Medications and Allergies Home Medications Medication Instructions Recorded Confirmed Type Cephalexin [Keflex] 500 mg PO Q12HR #6 cap 02/07/18 02/09/18 Rx Dicyclomine [Bentyl] 10 mg PO TID #30 cap 02/07/18 02/09/18 Rx Pantoprazole Sodium [Protonix] 20 mg PO AC-BRKFST #30 tablet. 02/07/18 Rx Allergies Allergy/AdvReac Type Severity Reaction Status Date / Time banana Allergy Rash/Hives Verified 02/09/18 22:01 nicotine Allergy Rash/Hives Verified 02/09/18 22:01 tetanus immune globulin Allergy Anaphylaxis Verified 02/09/18 22:01 Physical Exam Vitals: Vital Signs Temp Pulse Pulse Resp BP BP Pulse Ox 02/09/18 23:37 97.6 F 78 17 114/61 93 L 02/09/18 23:15 98 F 85 18 129/64 98 02/09/18 22:02 91 22 113/55 100 02/09/18 20:44 97.9 F 97 24 133/71 96 Intake and Output 02/09/18 02/09/18 02/10/18 14:59 22:59 06:59 Other: Weight 90.265 kg Constitutional: No acute distress, conversant, pleasant Eyes: Anicteric sclerae, moist conjunctiva, no lid-lag Pupils equal round reactive to light ENMT: NC/AT Oropharynx clear, no erythema, or exudates Neck: Supple, FROM, no masses, or JVD No carotid bruits No thyromegaly Lungs: Clear to auscultation Clear to percussion Normal respiratory effort, no accessory muscle use Cardiovascular: Heart regular in rate and rhythm, No murmurs, gallops, or rubs No peripheral edema Abdominal: Soft, tenderness to palpation of the epigastric region, voluntary guarding, no rebound or rigidity Abdomen moving with respiration Normoactive bowel sounds No hepatomegaly, No splenomegaly No palpable mass No abdominal wall hernia noted Skin: Normal temperature, tone, texture, turgor No induration No subcutaneous nodules No rash, lesions No ulcers Extremities: No digital cyanosis No clubbing Pedal pulses intact and symmetrical Radial pulses intact and symmetrical No calf tenderness Psychiatric: Alert and oriented to person, place and time Appropriate affect fair judgment Neuro Muscles Strength 5/5 in all 4 extremities Sensation to light touch grossly present throughout Cranial nerves II-XII grossly intact No focal sensory deficits Lymphatics: no palpable cervical or supraclavicular , or inguinal lymph nodes Results CBC & Chem 7: 02/09/18 22:00 02/09/18 22:00 Labs: Abnormal Lab Results - Last 24 Hours (Table) 02/09/18 02/09/18 02/09/18 Range/Units 22:00 22:00 22:00 WBC 12.1 H (3.8-10.6) k/uL Neutrophils # 8.5 H (1.3-7.7) k/uL Chloride 108 H (98-107) mmol/L Glucose 110 H (74-99) mg/dL Plasma Lactic Acid Josef 2.1 H* (0.7-2.0) mmol/L Assessment and Plan Assessment: 42-year-old female with no significant past medical history of admitted under observation with anticipated length of stay of less than 48 hours due to severe epigastric abdominal pain and diarrhea, patient was recently admitted and was released 2 days ago to follow-up with GI for upper endoscopy. Patient admitted this time for IV fluid hydration pain control and reevaluation by GI for possible upper endoscopy. Reporting frequent diarrhea for which C. diff will be checked Plan: Epigastric abdominal pain of unclear etiology rule out peptic ulcer disease, IBS Pain control with Protonix, Maalox, Bentyl IV fluid hydration Nothing by mouth Lipase and amylase negative CT of the abdomen negative Acute diarrhea of one-day duration rule out C. diff IV fluid hydration Check C. diff DVT prophylaxis heparin subcu 3 times a day Preformed a thorough record review from recent hospitalization for which she discharged 2 days ago presented with similar symptoms plan we'll follow-up with GI outpatient for endoscopy Surrogate decision-maker: Patient's father willing CODE STATUS:*Full code Discussed with: Patient, ER, RN Anticipated discharge: <[address]: Home A total of 55 minutes was spent on the care of this complex patient more than 50 % of the time was spent in counseling and care coordination.
[2018-02-10] MEDS: HEPARIN SODIUM,PORCINE 5,000 UNIT/ML 1 ML VIAL SQ SCH ×3 (01:10→15:38)
[2018-02-10] MEDS: SIMETHICONE 40 MG/0.6 ML DROPS 2,000 MG/30 ML BOTTLE PO SCH ×4 (01:10→17:40)
[2018-02-10 01:17] LABS: Appearance,Urine Clear (Clear); Bacteria,Urine Rare /hpf; Bilirubin,Urine Negative (Negative); Blood,Urine Moderate (Negative); Budding Yeast,Urine Occasional /hpf; Color,Urine Yellow; Glucose,Urine (UA) Negative (Negative); Ketones,Urine Negative (Negative); Leukocyte Esterase,Urine Small (Negative); Mucus,Urine Rare /hpf; Nitrite,Urine Negative (Negative); PH, Urine 6.5 (5.0-8.0); Protein,Urine Trace (Negative); RBC,Urine 8 /hpf (0-5); Squamous Epithelial Cell,Urine 4 /hpf (0-4); Urobilinogen,Urine <2.0 mg/dL (<2.0); WBC,Urine 11 /hpf (0-5)
[2018-02-10 02:22] LABS: Specific Gravity,Urine >1.050 (1.001-1.035)
[2018-02-10] MEDS: SODIUM CHLORIDE 0.9% 1,000 ML IV SCH ×3 (08:29→23:55)
[2018-02-10] MEDS: PANTOPRAZOLE 40 MG TABLET PO SCH ×2 (08:29→17:38)
--- NOTE | 2018-02-10 08:29 | P.CONS ---
History of Present Illness - Reason for Consult Consult date: 02/10/18 Epigastric pain Requesting physician: Penny Mancini - History of Present Illness 42-year-old female with a history of cholecystectomy, nicotine cigarette dependency admitted with acute on chronic epigastric pain for the last 3-4 months. She was hospitalized over the weekend with similar symptoms as well as an uncomplicated UTI. She was placed on PPI therapy as well as Bentyl improvement of symptoms. 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 Was unsure of her symptoms are related to caregiver stress or anxiety. Epigastric abdominal pain started 3-4 months ago without fever chills hematemesis hematochezia melena diarrhea or constipation. Mostly nausea with dry heaves. She was discharged a few days ago but presented last night with recurrent symptoms with a few episodes of nonbloody diarrhea. No history of EGD or colonoscopy. CT thoracic on previous admission reported no evidence of aneurysmal dilatation. CT abdomen and pelvis yesterday was negative. White count 12. Hemoglobin 13.2. LFTs normal. Review of Systems Constitutional: Denies fever, chills, sweats, weight gain, or loss. HEENT: Negative for migraines, blurred vision or loss, earaches, drainage, tinnitus, oral mucosal lesions, dysphagia, or odynophagia. CARDIAC: Negative for chest pain, arrhythmias, or palpitation. RESPIRATORY: Negative for shortness of breath, hemoptysis, cough, or sputum production. GI: See HPI for pertinent findings. : Negative for hematuria, urgency, frequency, polyuria, or dysuria. GYNc: Denies possibility of . Negative vaginal discharge. MUSCULOSKELETAL: Negative for muscle aches, swelling, arthritis, and arthralgias. NEUROLOGIC: Negative for stroke or TIA. ENDOCRINE: Negative for thyroid problems. SKIN: Negative for rash or itching. PSYCHIATRIC: Negative history for depression and anxiety Past Medical History Past Medical History: No Reported History History of Any Multi-Drug Resistant Organisms: None Reported Past Surgical History: Cholecystectomy, Joint Replacement Past Psychological History: No Psychological Hx Reported Smoking Status: Current every day smoker Past Alcohol Use History: Occasional Past Drug Use History: None Reported - Past Family History Mother Family Medical History: No Reported History Additional Family Medical History / Comment(s): Patient reports history of cancer in the family including breast cancer, liver cancer, brain cancer, prostate cancer Medications and Allergies Home Medications Medication Instructions Recorded Confirmed Type Cephalexin [Keflex] 500 mg PO Q12HR #6 cap 02/07/18 02/09/18 Rx Dicyclomine [Bentyl] 10 mg PO TID #30 cap 02/07/18 02/09/18 Rx Pantoprazole Sodium [Protonix] 20 mg PO AC-BRKFST #30 tablet. 02/07/18 Rx Allergies Allergy/AdvReac Type Severity Reaction Status Date / Time banana Allergy Rash/Hives Verified 02/09/18 22:01 nicotine Allergy Rash/Hives Verified 02/09/18 22:01 tetanus immune globulin Allergy Anaphylaxis Verified 02/09/18 22:01 Physical Exam Vitals: Vital Signs Temp Pulse Pulse Resp BP BP Pulse Ox 02/09/18 23:37 97.6 F 78 17 114/61 93 L 02/09/18 23:15 98 F 85 18 129/64 98 02/09/18 22:02 91 22 113/55 100 02/09/18 20:44 97.9 F 97 24 133/71 96 Intake and Output 02/09/18 02/10/18 02/10/18 22:59 06:59 14:59 Intake Total 960 Balance 960 Intake: Intake, IV Titration 960 Amount Sodium Chloride 0.9% 1, 960 000 ml @ 120 mls/hr IV . Q8H20M [facility] Rx#:[id number] Other: Weight 90.265 kg 90.265 kg General appearance: The patient is alert, oriented, in no acute distress. HET: Head is normocephalic and atraumatic. Pupils are equal and reactive. Oropharynx is clear without lesions. Neck: Supple without lymphadenopathy. Trachea midline. Heart: S1 S2. Regular rate and rhythm. Lungs: No crackles or wheezes are heard. Abdomen: Soft, epigastric tenderness, nondistended with bowel sounds. No peritoneal signs. No palpable organomegaly or masses. Extremities: Normal skin color and turgor. No cyanosis, rash, ulceration, clubbing, or edema. Radial and pedal pulses are 2/4 bilaterally. Neurological: No focal deficits. Strength and sensation are grossly intact. Results CBC & Chem 7: 02/09/18 22:00 02/09/18 22:00 Labs: Abnormal Lab Results - Last 24 Hours (Table) 02/09/18 02/09/18 02/09/18 Range/Units 22:00 22:00 22:00 WBC 12.1 H (3.8-10.6) k/uL Neutrophils # 8.5 H (1.3-7.7) k/uL Chloride 108 H (98-107) mmol/L Glucose 110 H (74-99) mg/dL Plasma Lactic Acid Josef 2.1 H* (0.7-2.0) mmol/L Ur Specific [place] (1.001-1.035) Urine Protein (Negative) Urine Blood (Negative) Ur Leukocyte Esterase (Negative) Urine RBC (0-5) /hpf Urine WBC (0-5) /hpf Urine Bacteria (None) /hpf Urine Mucus (None) /hpf Urine Yeast (Budding) (None) /hpf 02/10/18 Range/Units 00:05 WBC (3.8-10.6) k/uL Neutrophils # (1.3-7.7) k/uL Chloride (98-107) mmol/L Glucose (74-99) mg/dL Plasma Lactic Acid Josef (0.7-2.0) mmol/L Ur Specific [place] >1.050 H (1.001-1.035) Urine Protein Trace H (Negative) Urine Blood Moderate H (Negative) Ur Leukocyte Esterase Small H (Negative) Urine RBC 8 H (0-5) /hpf Urine WBC 11 H (0-5) /hpf Urine Bacteria Rare H (None) /hpf Urine Mucus Rare H (None) /hpf Urine Yeast (Budding) Occasional H (None) /hpf CT scan - abdomen: report reviewed (Dr. Dobson) Assessment and Plan (1) Epigastric abdominal pain Narrative/Plan: 42-year-old female presents with a 3-4 month history of epigastric pain nausea. Episodes of nonbloody diarrhea. Possible GERD possible peptic ulcer disease. Current Visit: Yes Status: Acute Code(s): R10.13 - EPIGASTRIC PAIN SNOMED Code(s): 24128658 Plan: 1. EGD. Continue with Bentyl 10 mg 4 times a day as needed. C. diff testing. 2. Protonix 40 mg twice daily. 3. Clear liquids. NPO after midnight. The farm equipment mechanic has discussed the risks, benefits and alternative therapies for the above-mentioned procedure and for both sedation/analgesia as well as necessary blood product administration, if indicated, as they pertain to this patient. The patient has indicated understanding and acceptance of the risks and procedures discussed. Thank you for this kind referral and the opportunity to participate in the care of your patient. This consultation was discussed with Dr. Dobson. The impression and plan of care have been directed as dictated.
[2018-02-10] MEDS ORDERED: PANTOPRAZOLE 40 MG/10 ML VIAL IV SCH (09:00)
[2018-02-10 14:39] VITALS: RESP 16
--- NOTE | 2018-02-10 16:42 | P.PN ---
Subjective Progress Note Date: 02/10/18 Principal diagnosis: Abdominal pain Patient was seen and examined. Sleeping comfortably when entering the room. Patient complains of mild epigastric pain, 3-4/10 in severity. + nausea but no vomiting. She denies JONES, fever, chills, chest pain, shortness of breath, palpitations, changes in urination. + loose stool x 1 day. Objective - Vital Signs Vital signs: Vital Signs Temp 98.4 F 02/10/18 14:39 Pulse 72 02/10/18 14:39 Resp 16 02/10/18 14:39 BP 105/56 02/10/18 14:39 Pulse Ox 97 02/10/18 14:39 Intake & Output 02/09/18 02/10/18 02/10/18 18:59 06:59 18:59 Intake Total 960 Balance 960 Weight 90.265 kg Intake: Intake, IV Titration 960 Amount Sodium Chloride 0.9% 1, 960 000 ml @ 120 mls/hr IV . Q8H20M [facility] Rx#:[id number] Other: # Voids 1 - Exam Constitutional: Patient is in no acute distress. Sleeping comfortably. HEENT: NC/AT. EOMI Neck: Normal ROM of the neck. No cervical LAD. Resp: Clear to auscultation bilaterally. No wheezing or crackles. CVS: Normal S1 S2. RRR. No murmurs, rubs or gallops. GI: Soft, no masses palpable. Mild epigastric tenderness without rebound. No guarding. : Deferred. MSK: No LE edema. Neuro: AO x 3 - Labs CBC & Chem 7: 02/09/18 22:00 02/09/18 22:00 Labs: Abnormal Lab Results - Last 24 Hours (Table) 02/09/18 02/09/18 02/09/18 Range/Units 22:00 22:00 22:00 WBC 12.1 H (3.8-10.6) k/uL Neutrophils # 8.5 H (1.3-7.7) k/uL Chloride 108 H (98-107) mmol/L Glucose 110 H (74-99) mg/dL Plasma Lactic Acid Josef 2.1 H* (0.7-2.0) mmol/L Ur Specific [place] (1.001-1.035) Urine Protein (Negative) Urine Blood (Negative) Ur Leukocyte Esterase (Negative) Urine RBC (0-5) /hpf Urine WBC (0-5) /hpf Urine Bacteria (None) /hpf Urine Mucus (None) /hpf Urine Yeast (Budding) (None) /hpf 02/10/18 Range/Units 00:05 WBC (3.8-10.6) k/uL Neutrophils # (1.3-7.7) k/uL Chloride (98-107) mmol/L Glucose (74-99) mg/dL Plasma Lactic Acid Josef (0.7-2.0) mmol/L Ur Specific [place] >1.050 H (1.001-1.035) Urine Protein Trace H (Negative) Urine Blood Moderate H (Negative) Ur Leukocyte Esterase Small H (Negative) Urine RBC 8 H (0-5) /hpf Urine WBC 11 H (0-5) /hpf Urine Bacteria Rare H (None) /hpf Urine Mucus Rare H (None) /hpf Urine Yeast (Budding) Occasional H (None) /hpf Assessment and Plan Assessment: Assessment 42 year old F with no PMH presents to the ED for epigastric pain and diarrhea. Patient was recently discharged for a similar compliant, returned prior to GI follow up. Plan 1. Epigastric pain: Likely gastritis vs. PUD. Continue Maalox 30 ml Q4H PRN, Dicyclomine 10 mg PO QID PRN, Docusate 100 mg PO daily PRN, Zofran 4 mg IV Q8H PRN for N/V, Simethicone 40 mg PO QID. Protonix 40 mg PO BID. Will start Morphine 2 mg IV Q4 PRN for pain control. GI consulted and recs appreciated - patient to remain on CLD for possible EGD tomorrow. 2. Diarrhea: Described as loose stool. FU C. diff 3. Elevated Lactic acid: Lactic acid 2.1 on admission. Patient appears non- toxic. FU Lactic acid in the AM 4. Leukocytosis: WBC 12.1 on admission. Possibly related to GI pathology. Previously DC'd on Keflex for UTI. FU CBC in the AM 5. Asymptomatic bacteruria: UA shows moderate blood, small LE and rare bacteria. Patient asymptomatic. Will repeat in the AM. 6. GI/DVT Prophylaxis: Protonix 40 mg PO BID, Heparin 5000 units TID.
[2018-02-11] MEDS: HEPARIN SODIUM,PORCINE 5,000 UNIT/ML 1 ML VIAL SQ SCH ×4 (00:29→23:02)
[2018-02-11] MEDS: SIMETHICONE 40 MG/0.6 ML DROPS 2,000 MG/30 ML BOTTLE PO SCH ×5 (00:29→23:02)
[2018-02-11 06:42] LABS: HCT 37.3 % (34.0-46.0); HGB 11.9 gm/dL (11.4-16.0); MCH 29.7 pg (25.0-35.0); Mean Platelet Volume 7.3; Platelet Count 184 k/uL (150-450); RBC 4.01 m/uL (3.80-5.40); RDW 13.7 % (11.5-15.5); WBC 8.5 k/uL (3.8-10.6)
[2018-02-11] MEDS: SODIUM CHLORIDE 0.9% 1,000 ML IV SCH ×3 (10:13→23:03)
[2018-02-11] MEDS: PANTOPRAZOLE 40 MG TABLET PO SCH ×2 (10:14→18:31)
--- NOTE | 2018-02-11 12:32 | P.PN ---
Subjective Progress Note Date: 02/11/18 Principal diagnosis: Epigastric pain Patient was seen and examined. No acute events overnight. Waiting for endoscopy. Currently NPO. States pain has improved to 1/10. No nausea or vomiting. She has no other complaints. Objective - Vital Signs Vital signs: Vital Signs Temp 97.8 F 02/11/18 07:50 Pulse 67 02/11/18 07:50 Resp 16 02/11/18 07:50 BP 116/77 02/11/18 07:50 Pulse Ox 96 02/11/18 07:50 Intake & Output 02/10/18 02/11/18 02/11/18 18:59 06:59 18:59 Intake Total 1350 Balance 1350 Intake: Intake, IV Titration 1110 Amount Sodium Chloride 0.9% 1, 1110 000 ml @ 120 mls/hr IV . Q8H20M [facility] Rx#:[id number] Oral 240 Other: Voiding Method Toilet # Voids 1 2 # Bowel Movements 1 # Emeses 0 - Exam General: non toxic, no distress, appears at stated age Derm: warm, dry Head: atraumatic, normocephalic, symmetric Eyes: EOMI, no lid lag, anicteric sclera Mouth: no lip lesion, mucus membranes moist Cardiovascular: S1S2 reg, no murmur Lungs: CTA bilateral, no rhonchi, no rales , no accessory muscle use Abdominal: Obese abdomen, mild epigastric tenderness with palpation and no rebound, no guarding, no appreciable organomegaly Ext: no gross muscle atrophy, no edema, no contractures Neuro: CN II-XI grossly intact, no focal neuro deficits Psych: Alert, oriented, appropriate affect - Labs CBC & Chem 7: 02/11/18 06:23 02/09/18 22:00 Labs: Abnormal Lab Results - Last 24 Hours (Table) 02/11/18 Range/Units 06:23 Plasma Lactic Acid Josef 0.6 L (0.7-2.0) mmol/L Assessment and Plan Assessment: Assessment 42 year old F with no PMH presents to the ED for epigastric pain and diarrhea. Patient was recently discharged for a similar compliant, returned prior to GI follow up. Plan Epigastric pain: Likely gastritis vs. PUD. Continue Maalox 30 ml Q4H PRN, Dicyclomine 10 mg PO QID PRN, Docusate 100 mg PO daily PRN, Zofran 4 mg IV Q8H PRN for N/V, Simethicone 40 mg PO QID. Protonix 40 mg PO BID. Morphine 2 mg IV Q4 PRN for pain control. GI consulted and recs appreciated - patient to remain NPO for EGD today. Diarrhea: Described as loose stool. No BM today. C. diff negative. Elevated Lactic acid: Resolved. Lactic acid 2.1 on admission, 0.6 today. Patient appears non-toxic. Leukocytosis: Resolved. WBC 12.1 on admission, 8.5 today. Possibly related to GI pathology. Previously DC'd on Keflex for UTI. Asymptomatic bacteruria: UA shows moderate blood, small LE and rare bacteria. Patient asymptomatic. GI/DVT Prophylaxis: Protonix 40 mg PO BID, Heparin 5000 units TID. Dispo: Patient to likely be discharged after EGD if results are benign.
[2018-02-11] MEDS ORDERED: IV FLUID CONTINUATION 1,000 ML IV ONE (13:25)
[2018-02-11] MEDS ORDERED: PROPOFOL 10 MG/ML 20 ML VIAL IV ONE (13:29)
[2018-02-11] MEDS ORDERED: LIDOCAINE 1% INJ 10MG/ML (20 ML MDV) ONE (13:29)
--- NOTE | 2018-02-11 13:36 | P.PCN ---
Date of Procedure: 02/11/18 Procedure(s) Performed: BRIEF HISTORY: Patient is a 42-year-old, pleasant, white female scheduled for an upper endoscopy as a part of evaluation of recurrent episodes of severe epigastric pain for the last few weeks duration.. PROCEDURE PERFORMED: Esophagogastroduodenoscopy with biopsy. PREOPERATIVE DIAGNOSIS: Epigastric pain. IV sedation per anesthesia. PROCEDURE: After informed consent was obtained, the patient was brought into the endoscopy unit. IV sedation was administered by Anesthesia under continuous monitoring. Initially the Olympus GIF-140 video endoscope was inserted into the mouth. Esophagus intubated without any difficulty. It was gradually advanced into the stomach and duodenum and carefully examined. The bulb and the second part of the duodenum appeared normal. The scope at this time was withdrawn to the stomach, adequately insufflated with air, and upon careful examination, mucosa of the antrum had mild gastritis and biopsies were done from this area. The, body, cardia and the fundus appeared normal. The scope was then withdrawn into the esophagus. The GE junction was located at 39 cm from the incisors. The esophagus appeared normal. There were no erosions or ulcerations seen and the patient tolerated the procedure well. IMPRESSION: 1.. Mild antral gastritis. 2. No evidence of esophagitis or peptic ulcer disease. RECOMMENDATIONS: The findings of this examination were discussed with the patient. She will continue on Protonix 40 mg daily. Diet will be advanced as tolerated..
[2018-02-11] MEDS: MORPHINE SULFATE 2 MG/ML SYRINGE IVP PRN ×2 (16:58→23:01)
[2018-02-12] MEDS: SIMETHICONE 40 MG/0.6 ML DROPS 2,000 MG/30 ML BOTTLE PO SCH (07:47)
[2018-02-12] MEDS: PANTOPRAZOLE 40 MG TABLET PO SCH (07:47)
[2018-02-12] MEDS: HEPARIN SODIUM,PORCINE 5,000 UNIT/ML 1 ML VIAL SQ SCH (07:48)
--- NOTE | 2018-02-12 09:25 | P.DS ---
Providers Date of admission: 02/09/18 23:08 Expected date of discharge: 02/12/18 Attending physician: Penny Mancini MD Consults: 02/09/18 23:09 Consult Physician Urgent Consulting Provider: Qing Dobson Consult Reason/Comments: ab pain, egd Do you want consulting provider notified?: Yes Primary care physician: Sanam Jensen - Discharge Diagnosis(es) (1) Gastritis Current Visit: Yes Status: Acute (2) Asymptomatic bacteriuria Current Visit: Yes Status: Acute Hospital Course: Patient is a 42-year-old female with no significant past medical history that came to the emergency department for epigastric pain. Patient was discharged 2 days ago for similar complaint and was advised to follow-up with gastroenterology in the outpatient setting for EGD. Patient reports being discharge on Friday, where she felt fine but on Friday she woke up with mild epigastric pain which progressively got worse and was associated with 3-4 loose bowel movements without blood or melana. Patient reported her pain to be epigastric, burning in nature, 10 out of 10 in severity, nonradiating, with no aggravating or alleviating factors. Patient reports after dinner her symptoms got severely aggravated to a 10 out of 10 pain for which she decided to come to the hospital. She denies any nausea, vomiting, fever, chills, chest pain, shortness of breath, palpitations, changes in urination. In the ED she was found to have a mild leukocytosis of 12.1, a blood glucose of 110, venous lactic acid level of 2.1, and small leukocyte esterase on urinalysis. Lipase was within normal limits. CT abdomen was benign. Patient was admitted for workup of abdominal pain. During her hospitalization patient was started on Maalox, Bentyl, Colace, Zofran , Simethicone, and Protonix 40 mg by mouth twice a day. Gastroenterology was consulted, and the decision was made for EGD while she was admitted. Patient underwent EGD on 02/11/2018 which revealed antral gastritis. C. difficile was negative. Her leukocytosis and elevated lactic acid level resolved during her hospitalization. Patient was able to tolerate her diet on discharge. Patient was advised to avoid aggravating foods. Patient was advised to follow-up with Dr. Dobson to review the results of her biopsies. Patient was advised to follow- up with her primary care provider within 1-2 days of discharge. Patient was seen and examined. No acute events overnight. Ate breakfast this morning. States pain is 1/10 currently. No nausea or vomiting. States had some pain when drinking grape juice. General: non toxic, no distress, appears at stated age Derm: warm, dry Head: atraumatic, normocephalic, symmetric Eyes: EOMI, no lid lag, anicteric sclera Mouth: no lip lesion, mucus membranes moist Cardiovascular: S1S2 reg, no murmur Lungs: CTA bilateral, no rhonchi, no rales , no accessory muscle use Abdominal: Obese abdomen, abdomen non tender to palpation, no guarding, no appreciable organomegaly Ext: no gross muscle atrophy, no edema, no contractures Neuro: CN II-XI grossly intact, no focal neuro deficits Psych: Alert, oriented, appropriate affect Pertinent Studies: CT Abd Procedures: EGD Patient Condition at Discharge: Good Plan - Discharge Summary Discharge Rx Participant: No New Discharge Prescriptions: New Docusate [Colace] 100 mg PO DAILY PRN cap PRN Reason: Constipation Mag Hydrox/Al Hydrox/Simeth [Maalox] 30 ml PO Q4HR PRN cup PRN Reason: Gi Upset Pantoprazole [Protonix] 40 mg PO DAILY #30 tablet. Simethicone 40 mg/0.6 ml Drops [Mylicon Drops] 40 mg PO QID ml Discontinued Cephalexin [Keflex] 500 mg PO Q12HR #6 cap Dicyclomine [Bentyl] 10 mg PO TID #30 cap Pantoprazole Sodium [Protonix] 20 mg PO AC-BRKFST #30 tablet. Discharge Medication List Docusate [Colace] 100 mg PO DAILY PRN cap 02/12/18 [Rx] Mag Hydrox/Al Hydrox/Simeth [Maalox] 30 ml PO Q4HR PRN cup 02/12/18 [Rx] Pantoprazole [Protonix] 40 mg PO DAILY #30 tablet. 02/12/18 [Rx] Simethicone 40 mg/0.6 ml Drops [Mylicon Drops] 40 mg PO QID ml 02/12/18 [Rx] Follow up Appointment(s)/Referral(s): Sanam Jensen MD [Primary Care Provider] - 1-2 days Patient Instructions/Handouts: Gastritis (DC), Diet for Stomach Ulcers and Gastritis (GEN) Activity/Diet/Wound Care/Special Instructions: Diet: Regular diet high in fiber, low in fat, low acidity, No caffeine or carbonated beverages. Please follow up with Dr. Dobson for the results of your biopsy during your procedure. Please follow up with your primary care provider within 1-2 days of discharge. Discharge Disposition: HOME SELF-CARE Pending Studies Pending Results: Please follow up with Dr. Dobson for the results of your EGD biopsy.
[2018-02-12 09:43] VITALS: BP 115/71; PULSE 78; TEMP 97
== END 2018-02-12 11:03 | disposition home or self-care (01) ==
LOC: EC 20:32 → 3SUR 23:08
PROVIDERS: ADMIT Internal Medicine; ATTEND Internal Medicine
DX: K29.50 Unspecified chronic gastritis without bleeding (principal); R19.7 Diarrhea, unspecified; R74.0 Nonspecific elevation of levels of transaminase and lactic acid dehydrogenase [LDH]; G89.29 Other chronic pain; D72.829 Elevated white blood cell count, unspecified; R82.71 Bacteriuria; F17.210 Nicotine dependence, cigarettes, uncomplicated; K21.9 Gastro-esophageal reflux disease without esophagitis; Z88.7 Allergy status to serum and vaccine; Z88.8 Allergy status to other drugs, medicaments and biological substances; Z91.018 Allergy to other foods; Z90.49 Acquired absence of other specified parts of digestive tract; Z80.0 Family history of malignant neoplasm of digestive organs; Z80.3 Family history of malignant neoplasm of breast; Z80.8 Family history of malignant neoplasm of other organs or systems; Z80.42 Family history of malignant neoplasm of prostate; Z79.899 Other long term (current) drug therapy
CPT/HCPCS: 99285 ×2; 96374 ×2; 96375 ×4; 96361 ×4; 96372 ×2; 36415; 93005; 88305; 80053; 82150; 82550; 82553; 83605 ×2; 83690; 84484; 85025; 85027; 85610; 85730; 81001; 81025; 87324; 74177; 43239; G0378 ×4; J2060; J1644 ×3; J2405; J2001; J2270; J1170; J2704; Q9967

== ENCOUNTER 2018-02-15 20:59 | Observation (INO) | payer OTHER ==
[2018-02-15] MEDS ORDERED: MAG HYDROX/AL HYDROX/SIMETH 30 ML, HYOSCYAMINE ELIXIR 10 ML, CIMETIDINE HCL 300 MG, LID... PO STA ×4 (21:48)
--- NOTE | 2018-02-15 21:53 | ED ---
Abdominal Pain HPI - General Chief Complaint: Abdominal Pain Stated Complaint: ABD PAIN Time Seen by Provider: 02/15/18 21:22 Source: patient Mode of arrival: EMS Limitations: no limitations - History of Present Illness Initial Comments: This patient is a 42-year-old woman who complains of having epigastric and periumbilical abdominal pain. She states she has been having this intermittently for 2-3 weeks and has been seen here couple of times for the pain. She did have an upper endoscopy and was told that she has some gastritis as well as polyps that were biopsied. The patient states that this evening she did have some sausage that was somewhat greasy for dinner but then 2-3 hours after started having a recurrence of the pains she was having. Is located in the epigastric area. It seems to also go to the periumbilical area. The pain is constant and severe. She states it is an aching Pain. She has not noted any other worsening factors. No relieving factors . There is some associated nausea but no vomiting. No change in urination or bowel movements. MD Complaint: abdominal pain -: hour(s) Location: periumbilical, epigastric Radiation: none Migration to: no migration Severity: severe Quality: aching Consistency: constant Improves With: nothing Worsens With: eating Associated Symptoms: nausea - Related Data Previous Rx's Medication Instructions Recorded Docusate [Colace] 100 mg PO DAILY PRN cap 02/12/18 Mag Hydrox/Al Hydrox/Simeth 30 ml PO Q4HR PRN cup 02/12/18 [Maalox] Pantoprazole [Protonix] 40 mg PO DAILY #30 tablet. 02/12/18 Simethicone 40 mg/0.6 ml Drops 40 mg PO QID ml 02/12/18 [Mylicon Drops] Allergies Allergy/AdvReac Type Severity Reaction Status Date / Time banana Allergy Rash/Hives Verified 02/15/18 21:32 nicotine Allergy Rash/Hives Verified 02/15/18 21:32 tetanus immune globulin Allergy Anaphylaxis Verified 02/15/18 21:32 Review of Systems ROS Statement: Those systems with pertinent positive or pertinent negative responses have been documented in the HPI. ROS Other: All systems not noted in ROS Statement are negative. Constitutional: Denies: fever, chills ENT: Denies: throat pain Respiratory: Denies: cough, dyspnea Cardiovascular: Denies: chest pain, palpitations, edema, syncope Gastrointestinal: Reports: abdominal pain, nausea. Denies: vomiting, diarrhea, melena, hematochezia Genitourinary: Denies: dysuria, frequency, hematuria, abnormal menses Musculoskeletal: Denies: back pain Skin: Denies: rash Neurological: Denies: headache, weakness Past Medical History Past Medical History: No Reported History History of Any Multi-Drug Resistant Organisms: None Reported Past Surgical History: Cholecystectomy, Joint Replacement Past Psychological History: No Psychological Hx Reported Smoking Status: Current every day smoker Past Alcohol Use History: Occasional Past Drug Use History: None Reported - Past Family History Mother Family Medical History: No Reported History Additional Family Medical History / Comment(s): Patient reports history of cancer in the family including breast cancer, liver cancer, brain cancer, prostate cancer General Exam Limitations: no limitations General appearance: alert, in no apparent distress, obese Head exam: Present: atraumatic, normocephalic Eye exam: Present: normal appearance. Absent: scleral icterus, conjunctival injection ENT exam: Present: normal oropharynx Neck exam: Present: normal inspection Respiratory exam: Present: normal lung sounds bilaterally. Absent: respiratory distress, wheezes, rales, rhonchi, stridor Cardiovascular Exam: Present: regular rate, normal rhythm, normal heart sounds. Absent: systolic murmur, diastolic murmur, rubs, gallop GI/Abdominal exam: Present: soft, tenderness (There is mild epigastric tenderness without rebound or guarding), normal bowel sounds. Absent: distended , guarding, rebound, rigid, mass, pulsatile mass, hernia Extremities exam: Present: normal inspection, normal capillary refill. Absent: pedal edema, calf tenderness Back exam: Present: normal inspection. Absent: CVA tenderness (R), CVA tenderness (L) Neurological exam: Present: alert Skin exam: Present: warm, dry, intact, normal color. Absent: rash Course Vital Signs 02/15/18 21:26 Temperature 97.8 F Pulse Rate 77 Respiratory 16 Rate Blood Pressure 131/69 O2 Sat by Pulse 97 Oximetry Disposition Referrals: Sanam Jensen MD [Primary Care Provider] - 1-2 days
[2018-02-15 22:12] LABS: Basophils % (A) 0 %; Eosinophils # (A) 0.2 k/uL (0-0.7); Eosinophils % (A) 2 %; HCT 36.2 % (34.0-46.0); HGB 12.3 gm/dL (11.4-16.0); Lymphocytes # (A) 2.2 k/uL (1.0-4.8); Lymphocytes % (A) 22 %; MCH 31.3 pg (25.0-35.0); MCHC 33.9 g/dL (31.0-37.0); MCV 92.3 fL (80.0-100.0); Mean Platelet Volume 7.6; Monocytes # (A) 0.3 k/uL (0-1.0); Monocytes % (A) 3 %; Neutrophils # (A) 7.2 k/uL (1.3-7.7); Neutrophils % (A) 71 %; Platelet Count 199 k/uL (150-450); RBC 3.92 m/uL (3.80-5.40); RDW 14.1 % (11.5-15.5); WBC 10.1 k/uL (3.8-10.6)
[2018-02-15 22:21] LABS: ALT 28 U/L (9-52); AST 27 U/L (14-36); Albumin 3.5 g/dL (3.5-5.0); Alkaline Phosphatase 70 U/L (38-126); Amylase 34 U/L (30-110); Anion Gap 7 mmol/L; Blood Urea Nitrogen 10 mg/dL (7-17); Calcium 9.5 mg/dL (8.4-10.2); Carbon Dioxide 21 mmol/L (22-30); Chloride 111 mmol/L (98-107); Glucose 102 mg/dL (74-99); Lipase 30 U/L (23-300); Potassium 3.7 mmol/L (3.5-5.1); Sodium 139 mmol/L (137-145); Total Bilirubin 0.4 mg/dL (0.2-1.3)
[2018-02-15 23:03] LABS: Amorphous Sediment,Urine Occasional /hpf; Appearance,Urine Cloudy (Clear); Bacteria,Urine Occasional /hpf; Bilirubin,Urine Negative (Negative); Blood,Urine Negative (Negative); Color,Urine Yellow; Glucose,Urine (UA) Negative (Negative); Ketones,Urine Negative (Negative); Leukocyte Esterase,Urine Large (Negative); Mucus,Urine Occasional /hpf; Nitrite,Urine Negative (Negative); PH, Urine 7.5 (5.0-8.0); Protein,Urine Trace (Negative); RBC,Urine 6 /hpf (0-5); Specific Gravity,Urine 1.023 (1.001-1.035); Squamous Epithelial Cell,Urine 46 /hpf (0-4); Urobilinogen,Urine <2.0 mg/dL (<2.0); WBC,Urine 35 /hpf (0-5)
--- NOTE | 2018-02-16 | XR ---
EXAMINATION TYPE: XR KUB DATE OF EXAM: 02/15/2018 COMPARISON: 01/30/1718 HISTORY: Abdominal pain TECHNIQUE: 2 views FINDINGS: There is no sign of intestinal obstruction or pneumoperitoneum. There are clips from cholec ystectomy. There is IUD. Lung bases are clear of consolidation. There are no pathologic calcification s over the kidneys. IMPRESSION: Nonacute abdomen. No change.
[2018-02-16] MEDS ORDERED: MORPHINE SULFATE 4 MG/ML SYRINGE IV STA (00:32)
--- NOTE | 2018-02-16 01:42 | CT ---
EXAMINATION TYPE: CT abdomen pelvis wo con DATE OF EXAM: 02/16/2018 COMPARISON: 02/09/2018 HISTORY: pain CT DLP: 1010.80 mGycm Automated exposure control for dose reduction was used. TECHNIQUE: Helical acquisition of images was performed from the lung bases through the pelvis. FINDINGS: Lung bases are clear. There is no pleural effusion. Heart size is normal. Liver and spleen appear normal. Bile ducts are not dilated. There are clips from cholecystectomy. The re is no pancreatic mass. There is no adrenal mass. Kidneys have normal size and contour. There is no hydronephrosis. Ureters a re not dilated. I see no intestinal wall thickening. There are no dilated loops. Stomach appears norm al. Appendix appears normal. There is IUD in the uterus in good position. Uterus is anteverted. Bladd er distends smoothly. There is no free fluid in the pelvis. There is no evidence of a pelvic mass. Th e lumbar spine is intact.: There is small umbilical hernia that contains fat. IMPRESSION: NEGATIVE CT SCAN OF THE ABDOMEN AND PELVIS. I DO NOT SEE A CAUSE FOR EPIGASTRIC PAIN. NORMAL APPENDIX . NO ADVERSE CHANGE COMPARED TO OLD EXAM.
[2018-02-16] MEDS ORDERED: DICYCLOMINE 10 MG/ML 2 ML AMP IM STA (02:02)
[2018-02-16] MEDS ORDERED: HYDROmorphone 1 MG/ML 1 ML SYRINGE IVP STA ×2 (02:39→04:07)
[2018-02-16] MEDS ORDERED: DIAZEPAM 5 MG/ML 2 ML INJ IVP STA (03:37)
[2018-02-16] MEDS ORDERED: MAG HYDROX/AL HYDROX/SIMETH 30 ML CUP PO PRN (04:10)
[2018-02-16] MEDS ORDERED: NALOXONE 0.4 MG/ML 1 ML VIAL IV PRN (04:10)
[2018-02-16] MEDS ORDERED: HYDROmorphone 1 MG/ML 1 ML SYRINGE IVP PRN (04:10)
[2018-02-16] MEDS ORDERED: cefTRIAXone IN SWFI 1,000 MG/10 ML SYRINGE IVP STA (04:10)
[2018-02-16] MEDS: SODIUM CHLORIDE 0.9% 1,000 ML IV SCH ×3 (04:26→22:39)
[2018-02-16 05:13] VITALS: BMI 39.6
[2018-02-16] MEDS: ONDANSETRON 4 MG/2 ML VIAL IVP PRN ×2 (07:05→16:55)
[2018-02-16] MEDS ORDERED: DOCUSATE 100 MG CAP PO PRN (07:53)
[2018-02-16] MEDS ORDERED: PANTOPRAZOLE 40 MG TABLET PO SCH (08:00)
[2018-02-16] MEDS: HYDROmorphone 1 MG/ML 1 ML SYRINGE IVP PRN ×3 (08:48→16:55)
[2018-02-16] MEDS ORDERED: PANTOPRAZOLE 40 MG/10 ML VIAL IV SCH (09:00)
--- NOTE | 2018-02-16 09:25 | HP ---
HISTORY AND PHYSICAL CHIEF COMPLAINT: 42-year-old white female with periumbilical epigastric pain intermittently for 2-3 weeks. This evening she had some sausage and greasy dinner, 2 to 3 hours after having pain in the epigastric area, periumbilical area, constant, severe aching pain. No relieving factors. No change in urination, bowel movements severe quality, aching, constant improves with nothing. HOME MEDICATIONS: Tried include Mylicon drops, Protonix, Maalox, Colace. ALLERGIES: BANANAS, NICOTINE, TETANUS. REVIEW OF SYSTEMS: Fourteen point review of systems negative except for as mentioned in HPI. SURGICAL HISTORY: Cholecystectomy, joint replacement. SOCIAL HISTORY: Current everyday smoker. Occasional alcohol. No drugs. FAMILY HISTORY: Cancer in the family include breast cancer, liver cancer, brain cancer, prostate cancer. PHYSICAL EXAMINATION: Temp 97.8, pulse 77, blood pressure 130s over 60s, O2 is 97, respiratory 16 to 18. HEENT: Normocephalic, atraumatic. CARDIOVASCULAR: S1, S2. LUNGS: Transmitted upper sounds. HEMATOLOGY: Negative Homans. PSYCH: Fair mood and affect. : No suprapubic tenderness. BACK: Normal to inspection. NEUROLOGIC: Cranial nerves are intact. ASSESSMENT: Acute abdominal pain of unclear etiology. CT scan of the abdomen and pelvis will be reviewed. Possible surgical consultation. MMODL / IJN: [id number] /
[2018-02-16] MEDS: SIMETHICONE 40 MG/0.6 ML DROPS 2,000 MG/30 ML BOTTLE PO SCH ×4 (12:31→22:28)
--- NOTE | 2018-02-16 14:34 | P.GSCN ---
History of Present Illness Consult date: 02/16/18 Reason for Consult: Abdominal pain History of present illness: 42-year-old female presented to the emergency room on the day of admission with a chief complaint of developing a sudden onset of intractable epigastric abdominal pain. Patient points to the mid epigastric areas to the reference point. Patient stated the pain seem to occur after eating a small amount of a sausage. After eating a sausage to 3 hours after the pain occurred. Patient describes it as a sharp pain radiates from mid epigastric down. Patient was recently discharged on February 12 after developing intermittent episodes of similar epigastric pain. At that time patient was seen by GI service and did undergo an EGD by Dr. Gomez on February 11 reviewing the report indicated the EGD showed mild gastritis otherwise no acute findings. Patient stated that the last several weeks she has been having persistent intermittent episodes of this type pain. Patient stated when the pain occurs comes in waves is constant on a scale of 1-10 rates it at 10. Patient stated there is no relieving factors. Sensation of nausea with no active emesis. No change in urination or bowel habits Patient states she has been taking protonix as prescribed for mild gastritis . Past surgical history 10 years prior did have a cholecystectomy , joint replacement No significant past medical history Computed tomography scan done this admission without contrast of the abdomen pelvis medial report indicate negative computed tomography scan normal appendix no adverse changes compared to prior No labs pending white count on admission 10.1 lipase 30 amylase 34 alk phosphatase 70 Review of Systems Essentially unremarkable except as mentioned in the present illness Past Medical History Past Medical History: No Reported History Additional Past Medical History / Comment(s): gastritis per dr kessler on fridayfebruary 10 when pt was last here. History of Any Multi-Drug Resistant Organisms: None Reported Past Surgical History: Cholecystectomy, Joint Replacement Past Psychological History: No Psychological Hx Reported Smoking Status: Current every day smoker Past Alcohol Use History: Occasional Past Drug Use History: None Reported - Past Family History Mother Family Medical History: Diabetes Mellitus Additional Family Medical History / Comment(s): Patient reports history of cancer in the family including breast cancer, liver cancer, brain cancer, prostate cancer Medications and Allergies Home Medications Medication Instructions Recorded Confirmed Type Docusate [Colace] 100 mg PO DAILY PRN cap 02/12/18 02/16/18 Rx Mag Hydrox/Al Hydrox/Simeth 30 ml PO Q4HR PRN cup 02/12/18 02/16/18 Rx [Maalox] Pantoprazole [Protonix] 40 mg PO DAILY #30 tablet.dr 02/12/18 02/16/18 Rx Simethicone 40 mg/0.6 ml Drops 40 mg PO QID ml 02/12/18 02/16/18 Rx [Mylicon Drops] Allergies Allergy/AdvReac Type Severity Reaction Status Date / Time banana Allergy Rash/Hives Verified 02/16/18 08:30 nicotine Allergy Rash/Hives Verified 02/16/18 08:30 tetanus immune globulin Allergy Anaphylaxis Verified 02/16/18 08:30 Surgical - Exam Vital Signs Temp Pulse Resp BP Pulse Ox 97.8 F 77 16 131/69 97 02/15/18 21:26 02/15/18 21:26 02/15/18 21:26 02/15/18 21:26 02/15/18 21:26 GENERAL APPEARANCE: 42-year-old female patient is alert, oriented x 3 , states had an episode this morning intractable epigastric pain "IV pain medication helped " VITAL SIGNS: Reviewed HEENT: Head is normocephalic and atraumatic. Pupils are equal and reactive. The nares are patent. Oropharynx is clear without lesions. NECK: Supple without lymphadenopathy. Traches midline. HEART: S1, S2. Regular rate and rhythm. No murmur denying chest pain LUNGS: No crackles or wheezes are heard. Adequate air movement bilaterally on command ABDOMEN: Soft, obese mild tenderness midepigastric area nondistended with good bowel sounds. No peritoneal signs. No palpable organomegaly or masses. EXTREMITIES: Normal skin color and turgor. No cyanosis, rash, ulceration, clubbing or edema. Radial pedal pulses are 2/4 bilaterally. NEUROLOGICAL: No focal deficits. Strength and sensation are grossly intact. Results - Labs 02/15/18 21:40 02/15/18 21:40 Abnormal Lab Results - Last 24 Hours (Table) 02/15/18 02/15/18 Range/Units 21:40 22:40 Chloride 111 H (98-107) mmol/L Carbon Dioxide 21 L (22-30) mmol/L Glucose 102 H (74-99) mg/dL Total Protein 6.0 L (6.3-8.2) g/dL Urine Appearance Cloudy H (Clear) Urine Protein Trace H (Negative) Ur Leukocyte Esterase Large H (Negative) Urine RBC 6 H (0-5) /hpf Urine WBC 35 H (0-5) /hpf Ur Squamous Epith Cells 46 H (0-4) /hpf Amorphous Sediment Occasional H (None) /hpf Urine Bacteria Occasional H (None) /hpf Urine Mucus Occasional H (None) /hpf Diabetes panel 02/15/18 Range/Units 21:40 Sodium 139 (137-145) mmol/L Potassium 3.7 (3.5-5.1) mmol/L Chloride 111 H (98-107) mmol/L Carbon Dioxide 21 L (22-30) mmol/L BUN 10 (7-17) mg/dL Creatinine 0.60 (0.52-1.04) mg/dL Glucose 102 H (74-99) mg/dL Calcium 9.5 (8.4-10.2) mg/dL AST 27 (14-36) U/L ALT 28 (9-52) U/L Alkaline Phosphatase 70 (38-126) U/L Total Protein 6.0 L (6.3-8.2) g/dL Albumin 3.5 (3.5-5.0) g/dL Calcium panel 02/15/18 Range/Units 21:40 Calcium 9.5 (8.4-10.2) mg/dL Albumin 3.5 (3.5-5.0) g/dL Pituitary panel 02/15/18 Range/Units 21:40 Sodium 139 (137-145) mmol/L Potassium 3.7 (3.5-5.1) mmol/L Chloride 111 H (98-107) mmol/L Carbon Dioxide 21 L (22-30) mmol/L BUN 10 (7-17) mg/dL Creatinine 0.60 (0.52-1.04) mg/dL Glucose 102 H (74-99) mg/dL Calcium 9.5 (8.4-10.2) mg/dL Adrenal panel 02/15/18 Range/Units 21:40 Sodium 139 (137-145) mmol/L Potassium 3.7 (3.5-5.1) mmol/L Chloride 111 H (98-107) mmol/L Carbon Dioxide 21 L (22-30) mmol/L BUN 10 (7-17) mg/dL Creatinine 0.60 (0.52-1.04) mg/dL Glucose 102 H (74-99) mg/dL Calcium 9.5 (8.4-10.2) mg/dL Total Bilirubin 0.4 (0.2-1.3) mg/dL AST 27 (14-36) U/L ALT 28 (9-52) U/L Alkaline Phosphatase 70 (38-126) U/L Total Protein 6.0 L (6.3-8.2) g/dL Albumin 3.5 (3.5-5.0) g/dL Assessment and Plan Assessment: Impression Presented admission persistent intractable midepigastric pain unclear etiology Recent EGD February 12 report indicated mild gastritis no evidence of ulcer disease Morbid obesity BMI 39 Current every day smoker History of a cholecystectomy 10 years prior Present on admission mild leukocytosis History of chronic migraine headache Plan Continue workup by GI services scheduled today for an MRCP CAT scan abdomen pelvis oral contrast only to be done after the MRCP today Pain control Continue protonix 40 mg oral as ordered DVT and GI prophylaxis Further surgical recommendations pending Will follow with you Repeat labs in the morning Surgical consultation note dictated for Dr. gr The above impression and plan of care have been discussed and directed by signing physician. Tamara Polo nurse practitioner acting as scribe for signing physician.
[2018-02-16] MEDS: IOPAMIDOL-300 CONTRAST 30 ML VIAL (ORAL USE) PO PRN ×2 (17:39→18:25)
--- NOTE | 2018-02-16 17:50 | MR ---
MRCP HISTORY: Abdominal pain Multiplanar multisequence imaging through the biliary system, three-dimensional post processing perfo rmed on an alternate workstation Correlation CT abdomen pelvis 02/16/2018, 02/09/2018 The liver is enlarged. Signal loss within the liver on out of phase imaging is compatible with hepati c steatosis. Patient is post cholecystectomy, artifact present likely due to patient's cholecystectom y clips, somewhat prominent cystic duct remnant is again noted. No evident abnormal fluid collection. Pancreas shows no mass or pancreatic ductal dilation. Spleen is not enlarged. Adrenal glands show no rmal morphology. Kidneys show no hydronephrosis or mass. Suspect a small hiatal hernia. There is no filling defect within the biliary system. No evident dilated intrahepatic biliary duct, c ommon hepatic duct is somewhat prominent likely due to postcholecystectomy change. IMPRESSION: Stable postoperative changes. Correlate for hepatic steatosis. Possible small hiatal amanuel ia.
[2018-02-16] MEDS ORDERED: MORPHINE SULFATE 4 MG/ML SYRINGE IVP STA (18:53)
[2018-02-16] MEDS ORDERED: MORPHINE SULFATE 4 MG/ML SYRINGE ONE (18:55)
--- NOTE | 2018-02-16 22:22 | CT ---
EXAMINATION TYPE: CT abdomen pelvis w con DATE OF EXAM: 02/16/2018 COMPARISON: CT without contrast 02/16/2018 at 12:59 AM. HISTORY: Abdominal pain with nausea and vomiting CT DLP: 1559.8 mGycm Automated exposure control for dose reduction was used. TECHNIQUE: Helical acquisition of images was performed from the lung bases through the pelvis. CONTRAST: Performed with Oral Contrast and with IV Contrast, patient injected with 100 mL of Isovue 3 00. FINDINGS: LUNG BASES: No significant abnormality is appreciated. LIVER/GB: No significant abnormality is appreciated. PANCREAS: No significant abnormality is seen. SPLEEN: No significant abnormality is seen. ADRENALS: No significant abnormality is seen. KIDNEYS: No significant abnormality is seen. FREE AIR: No free air is visualized. RETROPERITONEAL ADENOPATHY: None visualized REPRODUCTIVE ORGANS: No significant abnormality is seen. URINARY BLADDER: No significant abnormality is seen. PELVIC ADENOPATHY: None visualized. OSSEOUS STRUCTURES: No significant abnormality is seen. BOWEL: No significant abnormality is seen. OTHER: Vasculature unremarkable. IMPRESSION: NO ACUTE PROCESS.
[2018-02-16] MEDS: PANTOPRAZOLE 40 MG/10 ML VIAL IVP SCH (22:32)
--- NOTE | 2018-02-17 01:29 | CONS ---
CONSULTATION DATE OF SERVICE: 02/16/2018. PHYSICIAN REQUESTING: Dr. Jose De Jesus Hernandez. REASON FOR CONSULTATION: Acute recurrent epigastric pain. HISTORY OF PRESENT ILLNESS: The patient is a 42-year-old pleasant white female who came to the emergency room last night complaining of severe epigastric pain and hence was admitted to the hospital for further evaluation. This is her third hospitalization in the last 2 weeks. The first hospitalization was 2 weeks ago. She was in the hospital with . Five days later she was readmitted to the hospital and at this time she underwent upper endoscopy done by me that showed mild gastritis and a small hiatal hernia. The patient was sent home on Protonix 40 mg daily. She was doing well for 3 days. She started having severe epigastric pain which progressively got worse, associated with some nausea and vomiting. She came back to the emergency room and was subsequently admitted. She had a renal CT scan 2 weeks ago, which was unremarkable. She had a repeat CT scan in the ER that was also unremarkable. She had gallbladder surgery many years ago for symptomatic gallstones. This morning she still continues to complain of severe epigastric pain. PAST MEDICAL HISTORY: Significant for recurrent epigastric pain. PAST SURGICAL HISTORY: Cholecystectomy man years ago. SOCIAL HISTORY: Chronic smoker. No alcohol use. FAMILY HISTORY: Mother had breast cancer. MEDICATIONS: Medications at home include Mylicon drops, Protonix, Maalox, and Colace. ALLERGIES: CODEINE, TETANUS. REVIEW OF SYSTEMS: CARDIOPULMONARY: No shortness of breath. : No dysuria or hematuria. MUSCULOSKELETAL: Unremarkable. SKIN: Unremarkable. ENDOCRINE: Unremarkable. PSYCHIATRY: Unremarkable. CONSTITUTIONAL: No recent weight loss. No fever, chills, night sweats. PHYSICAL EXAMINATION: She appears comfortable. No apparent distress. Vital signs stable. Blood pressure is 97/51, pulse rate 88, temperature 98.8. HEENT examination unremarkable. Conjunctivae pink. Sclerae anicteric. Oral cavity no lesions. Neck, no JVD or lymph node enlargement. Heart regular rate and rhythm. Abdomen is soft with mild tenderness in the epigastric area. Bowel sounds are positive. No organomegaly. Extremities, no pedal edema. Skin, no rashes. Neurologic: Alert and oriented x3. No focal deficit. LAB DATA: Done at the time of admission to the hospital: CBC within normal limits. Basic metabolic panel normal. Amylase and lipase normal. ALT, AST, T-bili and alkaline phosphatase are normal. CT of the abdomen and pelvis is unremarkable. IMPRESSION: 1. This is a patient who presented to the hospital with recurrent severe epigastric pain, this being the third admission in the last [address] scan of the abdomen and pelvis 2 weeks ago and yesterday unremarkable. Upper endoscopy done 5 days ago was unremarkable other than gastritis. She is treated empirically with Protonix 40 mg twice a day. She is status post gallbladder surgery many years ago for symptomatic gallstones. The possibility of a common bile duct stone is unlikely but cannot be excluded. The serum transaminases as mentioned above have been within normal limits. Repeat endoscopy today to rule out retained common bile duct stone. 2. Continue with symptomatic and supportive care. 3. Further recommendations will follow based on the MRCP results. Thank you for this consultation. MMODL / IJN: [id number] /
[2018-02-17 06:56] LABS: Basophils % (A) 0 %; Eosinophils # (A) 0.1 k/uL (0-0.7); Eosinophils % (A) 1 %; HCT 35.1 % (34.0-46.0); HGB 11.1 gm/dL (11.4-16.0); Lymphocytes % (A) 25 %; MCH 29.3 pg (25.0-35.0); MCHC 31.5 g/dL (31.0-37.0); MCV 93.1 fL (80.0-100.0); Mean Platelet Volume 7.7; Monocytes # (A) 0.3 k/uL (0-1.0); Monocytes % (A) 4 %; Neutrophils # (A) 5.6 k/uL (1.3-7.7); Neutrophils % (A) 69 %; Platelet Count 206 k/uL (150-450); RBC 3.77 m/uL (3.80-5.40); WBC 8.2 k/uL (3.8-10.6)
[2018-02-17 07:13] LABS: ALT 33 U/L (9-52); AST 34 U/L (14-36); Albumin 3.1 g/dL (3.5-5.0); Alkaline Phosphatase 70 U/L (38-126); Anion Gap 5 mmol/L; Blood Urea Nitrogen 6 mg/dL (7-17); Calcium 8.9 mg/dL (8.4-10.2); Carbon Dioxide 21 mmol/L (22-30); Chloride 112 mmol/L (98-107); Glucose 87 mg/dL (74-99); Potassium 3.8 mmol/L (3.5-5.1); Sodium 138 mmol/L (137-145); Total Bilirubin 0.5 mg/dL (0.2-1.3); Total Protein 5.3 g/dL (6.3-8.2)
--- NOTE | 2018-02-17 08:41 | P.PN ---
Subjective Progress Note Date: 02/17/18 Principal diagnosis: Epigastric abdominal pain MRI negative. Reports improvement in pain. Recent EGD unremarkable. LFTs normal. Afebrile. Objective - Vital Signs Vital signs: Vital Signs Temp 98.5 F 02/17/18 07:43 Pulse 77 02/17/18 07:43 Resp 18 02/17/18 07:43 BP 97/67 02/17/18 07:43 Pulse Ox 98 02/17/18 07:43 Intake & Output 02/16/18 02/17/18 02/17/18 18:59 06:59 18:59 Other: Voiding Method Toilet # Voids 2 - Exam General appearance: The patient is alert, oriented, in no acute distress. HET: Head is normocephalic and atraumatic. Pupils are equal and reactive. Oropharynx is clear without lesions. Neck: Supple without lymphadenopathy. Trachea midline. Heart: S1 S2. Regular rate and rhythm. Lungs: No crackles or wheezes are heard. Abdomen: Soft, very mild diffuse midabdominal tenderness, nondistended with bowel sounds. No peritoneal signs. No palpable organomegaly or masses. Extremities: Normal skin color and turgor. No cyanosis, rash, ulceration, clubbing, or edema. Radial and pedal pulses are 2/4 bilaterally. Neurological: No focal deficits. Strength and sensation are grossly intact. - Labs CBC & Chem 7: 02/17/18 06:18 02/17/18 06:18 Labs: Abnormal Lab Results - Last 24 Hours (Table) 02/17/18 02/17/18 Range/Units 06:18 06:18 RBC 3.77 L (3.80-5.40) m/uL Hgb 11.1 L (11.4-16.0) gm/dL Chloride 112 H (98-107) mmol/L Carbon Dioxide 21 L (22-30) mmol/L BUN 6 L (7-17) mg/dL Total Protein 5.3 L (6.3-8.2) g/dL Albumin 3.1 L (3.5-5.0) g/dL Microbiology - Last 24 Hours (Table) 02/15/18 22:40 Urine Culture - Preliminary Urine,Voided Assessment and Plan (1) Epigastric abdominal pain Narrative/Plan: Possible IBS etiology unclear status post negative EGD an MRCP no evidence of retained CBD stone. Patient reported many's personal stressors in life lately. Current Visit: No Status: Acute Code(s): R10.13 - EPIGASTRIC PAIN SNOMED Code(s): 33401506 Plan: 1. Bentyl 10 mg 4 times daily. Discharge per medicine consult service. Follow -up PCP 1-2 weeks after discharge. Follow up in GI office 2-3 weeks. We'll follow as needed. Assessment and plan a care discussed with Dr. Valencia
[2018-02-17] MEDS: PANTOPRAZOLE 40 MG/10 ML VIAL IVP SCH ×2 (09:21→21:19)
[2018-02-17] MEDS: SODIUM CHLORIDE 0.9% 1,000 ML IV SCH ×2 (09:23→17:04)
[2018-02-17] MEDS: DICYCLOMINE 10 MG CAP PO SCH ×4 (09:26→21:19)
[2018-02-17] MEDS: SIMETHICONE 40 MG/0.6 ML DROPS 2,000 MG/30 ML BOTTLE PO SCH ×4 (09:26→21:22)
[2018-02-17] MEDS ORDERED: PEG 3350-NA SULF,BICARB,CL/KCL 4,000 ML BOTTLE PO ONE (14:18)
[2018-02-17] MEDS ORDERED: HYDROmorphone 1 MG/ML 1 ML SYRINGE IVP PRN (14:19)
--- NOTE | 2018-02-17 14:30 | P.PN ---
Subjective Progress Note Date: 02/17/18 42-year-old female seen this morning on rounds. Patient continues to report having diffuse abdominal discomfort crampy sensation patient underwent an MRCP which showed no evidence of a retained gallbladder stone. Patient apparently had a recent EGD which patient stated it only showed mild gastritis patient reports has intolerance to food Objective - Vital Signs Vital signs: Vital Signs Temp 98.5 F 02/17/18 11:05 Pulse 60 02/17/18 11:05 Resp 18 02/17/18 11:05 BP 109/55 02/17/18 11:05 Pulse Ox 98 02/17/18 11:05 Intake & Output 02/16/18 02/17/18 02/17/18 18:59 06:59 18:59 Other: Voiding Method Toilet # Voids 2 3 - Exam Physical exam 42-year-old female sitting continues to report having diffuse abdominal cramping Lungs clear on room air Heart S1-S2 audible regular Abdomen obese soft nontender no facial grimacing with palpitation to the abdominal no nausea states had an episode, today after the MRCP yesterday nonsense urinating no difficulty currently nothing by mouth Extremities no edema - Labs CBC & Chem 7: 02/17/18 06:18 02/17/18 06:18 Labs: Abnormal Lab Results - Last 24 Hours (Table) 02/17/18 02/17/18 Range/Units 06:18 06:18 RBC 3.77 L (3.80-5.40) m/uL Hgb 11.1 L (11.4-16.0) gm/dL Chloride 112 H (98-107) mmol/L Carbon Dioxide 21 L (22-30) mmol/L BUN 6 L (7-17) mg/dL Total Protein 5.3 L (6.3-8.2) g/dL Albumin 3.1 L (3.5-5.0) g/dL Microbiology - Last 24 Hours (Table) 02/15/18 22:40 Urine Culture - Final Urine,Voided Assessment and Plan Assessment: Impression Presented admission persistent intractable midepigastric pain unclear etiology Recent EGD February 12 report indicated mild gastritis no evidence of ulcer disease Morbid obesity BMI 39 Current every day smoker History of a cholecystectomy 10 years prior Present on admission mild leukocytosis History of chronic migraine headache Persistent episodes of abdominal cramping possible irritable bowel syndrome Plan Scheduled for an EGD and colonoscopy tomorrow per surgical service Pain control Continue protonix 40 mg IV twice a day DVT and GI prophylaxis Further surgical recommendations pending Will follow with you NP0 after midnight for the planned procedure The above impression and plan of care have been discussed and directed by signing physician. Tamara Polo nurse practitioner acting as scribe for signing physician.
[2018-02-17] MEDS ORDERED: MIDAZOLAM 2 MG/2 ML VIAL IV PRN (19:29)
[2018-02-17] MEDS ORDERED: LIDOCAINE 1% 20 ML VIAL (10MG/ML) FOR IV START INTRADERMA PRN (19:29)
[2018-02-17] MEDS ORDERED: LACTATED RINGERS 1,000 ML IV SCH (19:30)
--- NOTE | 2018-02-18 00:06 | PN ---
PROGRESS NOTE SUBJECTIVE: A 42-year-old white female with abdominal pain. MRCP is negative. The patient's abdominal pain is improving, but she is going to get a colonoscopy in the morning by Dr. Dominguez and then possibly go home after that. GI: Soft, mild tenderness to palpation left lower quadrant, left mid quadrant. CARDIOVASCULAR: S1, S2. PSYCH: Fair mood and affect low, anxious. LUNGS: Clear. ASSESSMENT: Acute abdominal pain. Rule out any kind of colitis. Ischemic colitis was ruled out with magnetic resonance cholangiopancreatography. Continue with current treatments. Possible discharge home tomorrow. MMODL / IJN: [id number] /
[2018-02-18] MEDS: SODIUM CHLORIDE 0.9% 1,000 ML IV SCH ×3 (00:28→13:24)
[2018-02-18] MEDS: SIMETHICONE 40 MG/0.6 ML DROPS 2,000 MG/30 ML BOTTLE PO SCH ×2 (10:24→13:23)
[2018-02-18] MEDS: DICYCLOMINE 10 MG CAP PO SCH ×2 (10:24→13:23)
[2018-02-18] MEDS: PANTOPRAZOLE 40 MG/10 ML VIAL IVP SCH (13:23)
[2018-02-18 13:29] VITALS: BP 128/76; PULSE 50; RESP 16; TEMP 97.7
[2018-02-18] MEDS ORDERED: PROPOFOL 10 MG/ML 20 ML VIAL IV ONE (15:32)
[2018-02-18] MEDS ORDERED: IV FLUID CONTINUATION 1,000 ML IV ONE (15:32)
--- NOTE | 2018-02-18 16:05 | P.OP ---
Date of Procedure: 02/18/18 Preoperative Diagnosis: Acute abdominal pain Postoperative Diagnosis: Antral gastritis with ulceration Sliding hernia Mild esophagitis Procedure(s) Performed: EGD Colonoscopy Anesthesia: MAC Surgeon: Torrey Dominguez Pathology: other (Antrum, esophagus) Condition: stable Disposition: PACU Description of Procedure: PROCEDURE: The patient was placed on the endoscopy table in the lateral position. Digital rectal examination was performed which revealed no abnormalities. . Flexible colonoscope was then placed in the patient's anus and passed throughout the entire colon. The ileocecal valve was visualized. The cecum, ascending, transverse, descending and sigmoid colon were normal. The rectum was normal as well. There were no masses, polyps or diverticula noted in the entire colon. Next, the gastroscope placed oropharynx passed in the esophagus into the stomach. Scope was then placed through the pylorus. The first and second portion of the duodenum was normal. Scope was then brought back the antrum this was inflamed. There was evidence of a small antral ulcer. The scope was then retroflexed and remainder some appeared normal. There was a sliding hiatal hernia. The GE junction was at 38 cm. The distal esophagus appeared mildly inflamed a biopsies performed. The proximal esophagus appeared normal. Scope was withdrawn from patient.
== END 2018-02-18 18:59 | disposition home or self-care (01) ==
LOC: EC 20:59 → 6PED 02-16 04:12
PROVIDERS: ADMIT Family Medicine; ATTEND Family Medicine
DX: R10.13 Epigastric pain (principal); K25.9 Gastric ulcer, unspecified as acute or chronic, without hemorrhage or perforation; K44.9 Diaphragmatic hernia without obstruction or gangrene; K29.40 Chronic atrophic gastritis without bleeding; K20.9 Esophagitis, unspecified; E66.01 Morbid (severe) obesity due to excess calories; R10.33 Periumbilical pain; Z68.39 Body mass index [BMI] 39.0-39.9, adult; D72.829 Elevated white blood cell count, unspecified; G43.909 Migraine, unspecified, not intractable, without status migrainosus; F17.210 Nicotine dependence, cigarettes, uncomplicated; Z79.899 Other long term (current) drug therapy; Z88.7 Allergy status to serum and vaccine; Z91.018 Allergy to other foods; Z91.048 Other nonmedicinal substance allergy status; Z97.5 Presence of (intrauterine) contraceptive device; Z96.659 Presence of unspecified artificial knee joint; Z90.49 Acquired absence of other specified parts of digestive tract; Z80.0 Family history of malignant neoplasm of digestive organs; Z80.3 Family history of malignant neoplasm of breast; Z80.8 Family history of malignant neoplasm of other organs or systems; Z80.42 Family history of malignant neoplasm of prostate; Z83.3 Family history of diabetes mellitus
CPT/HCPCS: 96375 ×5; 96361 ×2; 99285 ×2; 96376 ×4; 96372 ×2; 96374 ×2; 36415; 88305; 80053 ×2; 82150; 83690; 84484; 85025 ×2; 81001; 81025; 87086; 74018; 74176; 74177; 74181; 45378; 43239; G0378 ×3; J2270; J0500; J3360; J2405; J0696; J1170; J2704; C9113 ×2; Q9967

== ENCOUNTER 2018-03-07 20:15 | Emergency (ER) | payer OTHER ==
[2018-03-07] MEDS ORDERED: SODIUM CHLORIDE 0.9% 1,000 ML IV STA ×2 (20:16)
[2018-03-07] MEDS ORDERED: KETOROLAC 30 MG/ML 1 ML VIAL IVP STA (20:17)
[2018-03-07] MEDS ORDERED: ONDANSETRON 4 MG/2 ML VIAL IVP STA (20:17)
[2018-03-07] MEDS ORDERED: FAMOTIDINE 20 MG/2 ML VIAL IV STA (20:18)
[2018-03-07 20:45] LABS: Basophils % (A) 0 %; Eosinophils # (A) 0.2 k/uL (0-0.7); Eosinophils % (A) 1 %; HCT 39.6 % (34.0-46.0); HGB 13.2 gm/dL (11.4-16.0); Lymphocytes # (A) 2.6 k/uL (1.0-4.8); Lymphocytes % (A) 20 %; MCH 30.4 pg (25.0-35.0); MCHC 33.4 g/dL (31.0-37.0); MCV 90.9 fL (80.0-100.0); Mean Platelet Volume 7.9; Monocytes # (A) 0.4 k/uL (0-1.0); Monocytes % (A) 3 %; Neutrophils % (A) 75 %; Platelet Count 219 k/uL (150-450); RBC 4.35 m/uL (3.80-5.40); RDW 13.7 % (11.5-15.5); WBC 13.3 k/uL (3.8-10.6)
--- NOTE | 2018-03-07 20:47 | ED ---
Abdominal Pain HPI - General Chief Complaint: Abdominal Pain Stated Complaint: Abdominal Pain Time Seen by Provider: 03/07/18 20:15 Source: patient, RN notes reviewed Mode of arrival: EMS Limitations: no limitations - History of Present Illness Initial Comments: This a 44-year-old female history of cholecystectomy and peptic ulcer disease in the past who presents by EMS tonight with complaints of severe sharp 10/10 mid epigastric pain that started just prior to admission. She's had previous episodes of this recently she has been evaluated in the past and found have gastritis. She denies nausea but she apparently was retching per paramedics. No fevers chills nausea vomiting sweats no hematemesis no hematochezia she told paramedics that morphine and fentanyl did not help her pain she denies any cough phlegm production lower abdominal pain dysuria or other symptoms MD Complaint: abdominal pain - Related Data Previous Rx's Medication Instructions Recorded Docusate [Colace] 100 mg PO DAILY PRN cap 02/12/18 Mag Hydrox/Al Hydrox/Simeth 30 ml PO Q4HR PRN cup 02/12/18 [Maalox] Pantoprazole [Protonix] 40 mg PO DAILY #30 tablet. 02/12/18 Simethicone 40 mg/0.6 ml Drops 40 mg PO QID ml 02/12/18 [Mylicon Drops] Dicyclomine [Bentyl] 10 mg PO TID #15 capsule 03/07/18 Allergies Allergy/AdvReac Type Severity Reaction Status Date / Time banana Allergy Rash/Hives Verified 02/16/18 08:30 nicotine Allergy Rash/Hives Verified 02/16/18 08:30 tetanus immune globulin Allergy Anaphylaxis Verified 02/16/18 08:30 Review of Systems ROS Statement: Those systems with pertinent positive or pertinent negative responses have been documented in the HPI. ROS Other: All systems not noted in ROS Statement are negative. Past Medical History Past Medical History: No Reported History Additional Past Medical History / Comment(s): gastritis per dr kessler on fridayfebruary 10 when pt was last here. History of Any Multi-Drug Resistant Organisms: None Reported Past Surgical History: Cholecystectomy, Joint Replacement Past Psychological History: No Psychological Hx Reported Smoking Status: Current every day smoker Past Alcohol Use History: Occasional Past Drug Use History: None Reported - Past Family History Mother Family Medical History: Diabetes Mellitus Additional Family Medical History / Comment(s): Patient reports history of cancer in the family including breast cancer, liver cancer, brain cancer, prostate cancer General Exam - General Exam Comments Initial Comments: This is a well-developed well-nourished awake alert anxious appearing female who is hyperventilating and appears to be in distress Limitations: no limitations General appearance: alert, anxious, in distress Head exam: Present: atraumatic, normocephalic, normal inspection Eye exam: Present: normal appearance, PERRL, EOMI. Absent: scleral icterus, conjunctival injection, periorbital swelling ENT exam: Present: normal exam, mucous membranes moist Neck exam: Present: normal inspection. Absent: tenderness, meningismus, lymphadenopathy Respiratory exam: Present: normal lung sounds bilaterally. Absent: respiratory distress, wheezes, rales, rhonchi, stridor Cardiovascular Exam: Present: regular rate, normal rhythm, normal heart sounds. Absent: systolic murmur, diastolic murmur, rubs, gallop, clicks GI/Abdominal exam: Present: soft, tenderness (Tenderness to the mid epigastrium to palpation), normal bowel sounds. Absent: distended, guarding, rebound, rigid Rectal exam: Present: deferred Extremities exam: Present: normal inspection, full ROM, normal capillary refill. Absent: tenderness, pedal edema, joint swelling, calf tenderness Back exam: Present: normal inspection Neurological exam: Present: alert, oriented X3, CN II-XII intact Psychiatric exam: Present: anxious Skin exam: Present: warm, dry, intact, normal color. Absent: rash Course Vital Signs 03/07/18 03/07/18 20:32 21:42 Temperature 97.6 F Pulse Rate 76 75 Respiratory 24 18 Rate Blood Pressure 144/93 151/77 O2 Sat by Pulse 94 L 97 Oximetry Medical Decision Making - Medical Decision Making I did reevaluate patient several occasions finally get some relief after Bentyl was given. She had previously been on this and told to stop at this time seems reasonable to start a short course of this. She'll also increase her proton pump inhibitor to twice a day dosing. She is a keep her follow-up appointments. - Lab Data Result diagrams: 03/07/18 20:20 03/07/18 20:20 Lab Results 03/07/18 03/07/18 03/07/18 Range/Units 20:20 20:20 20:20 WBC 13.3 H (3.8-10.6) k/uL RBC 4.35 (3.80-5.40) m/uL Hgb 13.2 (11.4-16.0) gm/dL Hct 39.6 (34.0-46.0) % MCV 90.9 (80.0-100.0) fL MCH 30.4 (25.0-35.0) pg MCHC 33.4 (31.0-37.0) g/dL RDW 13.7 (11.5-15.5) % Plt Count 219 (150-450) k/uL Neutrophils % 75 % Lymphocytes % 20 % Monocytes % 3 % Eosinophils % 1 % Basophils % 0 % Neutrophils # 10.0 H (1.3-7.7) k/uL Lymphocytes # 2.6 (1.0-4.8) k/uL Monocytes # 0.4 (0-1.0) k/uL Eosinophils # 0.2 (0-0.7) k/uL Basophils # 0.0 (0-0.2) k/uL PT (9.0-12.0) sec INR (<1.2) APTT (22.0-30.0) sec Sodium 140 (137-145) mmol/L Potassium 3.7 (3.5-5.1) mmol/L Chloride 108 H (98-107) mmol/L Carbon Dioxide 24 (22-30) mmol/L Anion Gap 8 mmol/L BUN 10 (7-17) mg/dL Creatinine 0.64 (0.52-1.04) mg/dL Est GFR (CKD-EPI)AfAm >90 (>60 ml/min/1.73 sqM) Est GFR (CKD-EPI)NonAf >90 (>60 ml/min/1.73 sqM) Glucose 105 H (74-99) mg/dL Plasma Lactic Acid Josef (0.7-2.0) mmol/L Calcium 10.1 (8.4-10.2) mg/dL Magnesium 2.2 (1.6-2.3) mg/dL Total Bilirubin 0.5 (0.2-1.3) mg/dL AST 23 (14-36) U/L ALT 29 (9-52) U/L Alkaline Phosphatase 82 (38-126) U/L Total Creatine Kinase 35 (30-135) U/L CK-MB (CK-2) 0.6 (0.0-2.4) ng/mL CK-MB (CK-2) Rel Index 1.7 Troponin I <0.012 (0.000-0.034) ng/mL Total Protein 6.9 (6.3-8.2) g/dL Albumin 4.0 (3.5-5.0) g/dL Amylase 42 (30-110) U/L Lipase 24 (23-300) U/L HCG, Quant mIU/mL Urine Color Urine Appearance (Clear) Urine pH (5.0-8.0) Ur Specific [place] (1.001-1.035) Urine Protein (Negative) Urine Glucose (UA) (Negative) Urine Ketones (Negative) Urine Blood (Negative) Urine Nitrite (Negative) Urine Bilirubin (Negative) Urine Urobilinogen (<2.0) mg/dL Ur Leukocyte Esterase (Negative) Urine RBC (0-5) /hpf Urine WBC (0-5) /hpf Ur Squamous Epith Cells (0-4) /hpf Urine Bacteria (None) /hpf Urine Mucus (None) /hpf Urine Opiates Screen (NotDetected) Ur Oxycodone Screen (NotDetected) Urine Methadone Screen (NotDetected) Ur Propoxyphene Screen (NotDetected) Ur Barbiturates Screen (NotDetected) U Tricyclic Antidepress (NotDetected) Ur Phencyclidine Scrn (NotDetected) Ur Amphetamines Screen (NotDetected) U Methamphetamines Scrn (NotDetected) U Benzodiazepines Scrn (NotDetected) Urine Cocaine Screen (NotDetected) U Marijuana (THC) Screen (NotDetected) 03/07/18 03/07/18 03/07/18 Range/Units 20:20 20:20 20:49 WBC (3.8-10.6) k/uL RBC (3.80-5.40) m/uL Hgb (11.4-16.0) gm/dL Hct (34.0-46.0) % MCV (80.0-100.0) fL MCH (25.0-35.0) pg MCHC (31.0-37.0) g/dL RDW (11.5-15.5) % Plt Count (150-450) k/uL Neutrophils % % Lymphocytes % % Monocytes % % Eosinophils % % Basophils % % Neutrophils # (1.3-7.7) k/uL Lymphocytes # (1.0-4.8) k/uL Monocytes # (0-1.0) k/uL Eosinophils # (0-0.7) k/uL Basophils # (0-0.2) k/uL PT 9.9 (9.0-12.0) sec INR 1.0 (<1.2) APTT 22.3 (22.0-30.0) sec Sodium (137-145) mmol/L Potassium (3.5-5.1) mmol/L Chloride (98-107) mmol/L Carbon Dioxide (22-30) mmol/L Anion Gap mmol/L BUN (7-17) mg/dL Creatinine (0.52-1.04) mg/dL Est GFR (CKD-EPI)AfAm (>60 ml/min/1.73 sqM) Est GFR (CKD-EPI)NonAf (>60 ml/min/1.73 sqM) Glucose (74-99) mg/dL Plasma Lactic Acid Josef 1.4 (0.7-2.0) mmol/L Calcium (8.4-10.2) mg/dL Magnesium (1.6-2.3) mg/dL Total Bilirubin (0.2-1.3) mg/dL AST (14-36) U/L ALT (9-52) U/L Alkaline Phosphatase (38-126) U/L Total Creatine Kinase (30-135) U/L CK-MB (CK-2) (0.0-2.4) ng/mL CK-MB (CK-2) Rel Index Troponin I (0.000-0.034) ng/mL Total Protein (6.3-8.2) g/dL Albumin (3.5-5.0) g/dL Amylase (30-110) U/L Lipase (23-300) U/L HCG, Quant <2.4 mIU/mL Urine Color Urine Appearance (Clear) Urine pH (5.0-8.0) Ur Specific [place] (1.001-1.035) Urine Protein (Negative) Urine Glucose (UA) (Negative) Urine Ketones (Negative) Urine Blood (Negative) Urine Nitrite (Negative) Urine Bilirubin (Negative) Urine Urobilinogen (<2.0) mg/dL Ur Leukocyte Esterase (Negative) Urine RBC (0-5) /hpf Urine WBC (0-5) /hpf Ur Squamous Epith Cells (0-4) /hpf Urine Bacteria (None) /hpf Urine Mucus (None) /hpf Urine Opiates Screen (NotDetected) Ur Oxycodone Screen (NotDetected) Urine Methadone Screen (NotDetected) Ur Propoxyphene Screen (NotDetected) Ur Barbiturates Screen (NotDetected) U Tricyclic Antidepress (NotDetected) Ur Phencyclidine Scrn (NotDetected) Ur Amphetamines Screen (NotDetected) U Methamphetamines Scrn (NotDetected) U Benzodiazepines Scrn (NotDetected) Urine Cocaine Screen (NotDetected) U Marijuana (THC) Screen (NotDetected) 03/07/18 Range/Units 21:27 WBC (3.8-10.6) k/uL RBC (3.80-5.40) m/uL Hgb (11.4-16.0) gm/dL Hct (34.0-46.0) % MCV (80.0-100.0) fL MCH (25.0-35.0) pg MCHC (31.0-37.0) g/dL RDW (11.5-15.5) % Plt Count (150-450) k/uL Neutrophils % % Lymphocytes % % Monocytes % % Eosinophils % % Basophils % % Neutrophils # (1.3-7.7) k/uL Lymphocytes # (1.0-4.8) k/uL Monocytes # (0-1.0) k/uL Eosinophils # (0-0.7) k/uL Basophils # (0-0.2) k/uL PT (9.0-12.0) sec INR (<1.2) APTT (22.0-30.0) sec Sodium (137-145) mmol/L Potassium (3.5-5.1) mmol/L Chloride (98-107) mmol/L Carbon Dioxide (22-30) mmol/L Anion Gap mmol/L BUN (7-17) mg/dL Creatinine (0.52-1.04) mg/dL Est GFR (CKD-EPI)AfAm (>60 ml/min/1.73 sqM) Est GFR (CKD-EPI)NonAf (>60 ml/min/1.73 sqM) Glucose (74-99) mg/dL Plasma Lactic Acid Josef (0.7-2.0) mmol/L Calcium (8.4-10.2) mg/dL Magnesium (1.6-2.3) mg/dL Total Bilirubin (0.2-1.3) mg/dL AST (14-36) U/L ALT (9-52) U/L Alkaline Phosphatase (38-126) U/L Total Creatine Kinase (30-135) U/L CK-MB (CK-2) (0.0-2.4) ng/mL CK-MB (CK-2) Rel Index Troponin I (0.000-0.034) ng/mL Total Protein (6.3-8.2) g/dL Albumin (3.5-5.0) g/dL Amylase (30-110) U/L Lipase (23-300) U/L HCG, Quant mIU/mL Urine Color Yellow Urine Appearance Cloudy H (Clear) Urine pH 6.0 (5.0-8.0) Ur Specific [place] 1.028 (1.001-1.035) Urine Protein 1+ H (Negative) Urine Glucose (UA) Negative (Negative) Urine Ketones 1+ H (Negative) Urine Blood Moderate H (Negative) Urine Nitrite Negative (Negative) Urine Bilirubin Negative (Negative) Urine Urobilinogen 3.0 (<2.0) mg/dL Ur Leukocyte Esterase Moderate H (Negative) Urine RBC 3 (0-5) /hpf Urine WBC 9 H (0-5) /hpf Ur Squamous Epith Cells 14 H (0-4) /hpf Urine Bacteria Rare H (None) /hpf Urine Mucus Rare H (None) /hpf Urine Opiates Screen Not Detected (NotDetected) Ur Oxycodone Screen Not Detected (NotDetected) Urine Methadone Screen Not Detected (NotDetected) Ur Propoxyphene Screen Not Detected (NotDetected) Ur Barbiturates Screen Not Detected (NotDetected) U Tricyclic Antidepress Not Detected (NotDetected) Ur Phencyclidine Scrn Not Detected (NotDetected) Ur Amphetamines Screen Not Detected (NotDetected) U Methamphetamines Scrn Not Detected (NotDetected) U Benzodiazepines Scrn Detected H (NotDetected) Urine Cocaine Screen Not Detected (NotDetected) U Marijuana (THC) Screen Not Detected (NotDetected) - EKG Data -: EKG Interpreted by Me (Sinus rhythm rate of 90 QRS 76 QT since QTC 374/457 low-voltage nonspecific) Disposition Clinical Impression: Abdominal pain, Gastritis Disposition: HOME SELF-CARE Condition: Good Instructions: Abdominal Pain (ED), Gastritis (ED) Prescriptions: Dicyclomine [Bentyl] 10 mg PO TID #15 capsule Is patient prescribed a controlled substance at d/c from ED?: No Referrals: Sanam Jensen MD [Primary Care Provider] - 1-2 days
[2018-03-07 20:58] LABS: ALT 29 U/L (9-52); AST 23 U/L (14-36); Alkaline Phosphatase 82 U/L (38-126); Amylase 42 U/L (30-110); Anion Gap 8 mmol/L; Blood Urea Nitrogen 10 mg/dL (7-17); Calcium 10.1 mg/dL (8.4-10.2); Carbon Dioxide 24 mmol/L (22-30); Chloride 108 mmol/L (98-107); Glucose 105 mg/dL (74-99); Lipase 24 U/L (23-300); Magnesium 2.2 mg/dL (1.6-2.3); Potassium 3.7 mmol/L (3.5-5.1); Sodium 140 mmol/L (137-145); Total Bilirubin 0.5 mg/dL (0.2-1.3); Total Protein 6.9 g/dL (6.3-8.2)
[2018-03-07 21:07] LABS: Partial Thromboplastin Time 22.3 sec (22.0-30.0); Prothrombin Time 9.9 sec (9.0-12.0)
[2018-03-07] MEDS ORDERED: MAG HYDROX/AL HYDROX/SIMETH 30 ML, HYOSCYAMINE ELIXIR 10 ML, CIMETIDINE HCL 300 MG, LID... PO STA ×4 (21:07)
[2018-03-07] MEDS ORDERED: LORazepam 2 MG/ML INJ IV STA (21:10)
[2018-03-07] MEDS ORDERED: HYDROmorphone 1 MG/ML 1 ML SYRINGE IVP STA (21:10)
[2018-03-07 21:21] LABS: Creatine Kinase 35 U/L (30-135)
[2018-03-07 21:34] LABS: Creatine Kinase MB 0.6 ng/mL (0.0-2.4); Troponin I <0.012 ng/mL (0.000-0.034)
[2018-03-07 21:50] LABS: Appearance,Urine Cloudy (Clear); Bacteria,Urine Rare /hpf; Bilirubin,Urine Negative (Negative); Blood,Urine Moderate (Negative); Color,Urine Yellow; Glucose,Urine (UA) Negative (Negative); Ketones,Urine 1+ (Negative); Leukocyte Esterase,Urine Moderate (Negative); Mucus,Urine Rare /hpf; Nitrite,Urine Negative (Negative); Protein,Urine 1+ (Negative); RBC,Urine 3 /hpf (0-5); Specific Gravity,Urine 1.028 (1.001-1.035); Squamous Epithelial Cell,Urine 14 /hpf (0-4); WBC,Urine 9 /hpf (0-5)
[2018-03-07 21:58] LABS: Cocaine Screen,Urine Not Detected (NotDetected); Phencyclidine Screen,Urine Not Detected (NotDetected); Urn Cannabinoid Scrn Not Detected (NotDetected)
[2018-03-07 21:59] LABS: Amphetamine Screen,Urine Not Detected (NotDetected); Barbiturate Screen,Urine Not Detected (NotDetected); Benzodiazepines Screen,Urine Detected (NotDetected); Methadone Screen, Urine Not Detected (NotDetected); Opiate Screen,Urine Not Detected (NotDetected); Oxycodone Screen, Urine Not Detected (NotDetected); Tricyclic Antidepressant,Urine Not Detected (NotDetected)
[2018-03-07] MEDS ORDERED: DICYCLOMINE 10 MG/ML 2 ML AMP IM STA (22:11)
[2018-03-07 22:43] VITALS: RESP 18
--- NOTE | 2018-03-07 22:51 | XR ---
EXAMINATION TYPE: XR KUB DATE OF EXAM: 03/07/2018 COMPARISON: 02/15/2018 HISTORY: Abdominal pain TECHNIQUE: 2 views FINDINGS: There is no sign of intestinal obstruction or pneumoperitoneum. Fecal pattern is normal. Th ere are clips from cholecystectomy. There is IUD noted. There are no pathologic calcifications over t he kidneys. IMPRESSION: Nonacute abdomen. No change.
[2018-03-07 23:25] VITALS: BP 118/56; PULSE 73; TEMP 98.7
== END 2018-03-07 23:27 | disposition home or self-care (01) ==
LOC: EC 20:15
DX: K29.70 Gastritis, unspecified, without bleeding (principal); F17.200 Nicotine dependence, unspecified, uncomplicated; Z87.11 Personal history of peptic ulcer disease; Z90.49 Acquired absence of other specified parts of digestive tract; Z88.7 Allergy status to serum and vaccine; Z88.8 Allergy status to other drugs, medicaments and biological substances; Z91.018 Allergy to other foods
CPT/HCPCS: 36415; 93005; 80053; 82150; 82550; 82553; 83605; 83690; 83735; 84484; 85025; 85610; 85730; 81001; 84702; 80306; 74018; 99285; 96374; 96375 ×4; 96361 ×2; 96372; J2060; J0500; J2405; J1885; J1170

== ENCOUNTER 2018-04-01 08:51 | Day surgery (SDC) | payer OTHER ==
[2018-03-31 11:27] VITALS: BMI 35.4
[~2018-04-01 08:51] MED LIST: LACTATED RINGERS 1,000 ML IV SCH; LIDOCAINE 1% 20 ML VIAL (10MG/ML) FOR IV START INTRADERMA PRN
[2018-04-01 09:32] VITALS: TEMP 08.2
[2018-04-01] MEDS ORDERED: PROPOFOL 10 MG/ML 20 ML VIAL IV ONE (10:09)
[2018-04-01] MEDS ORDERED: LIDOCAINE 1% INJ 10MG/ML (20 ML MDV) ONE (10:09)
--- NOTE | 2018-04-01 10:19 | P.GSHP ---
History of Present Illness H&P Date: 04/01/18 Chief Complaint: Peptic ulcer disease This is a 43-year-old female who presents today for EGD. Patient has previous history of a antral ulcer. She presents today for reexamination. Past Medical History Past Medical History: Osteoarthritis (OA) Additional Past Medical History / Comment(s): gastritis, History of Any Multi-Drug Resistant Organisms: None Reported Past Surgical History: Cholecystectomy, Joint Replacement Additional Past Surgical History / Comment(s): TOTAL LEFT KNEE Past Anesthesia/Blood Transfusion Reactions: Previous Problems w/ Anesthesia Additional Past Anesthesia/Blood Transfusion Reaction / Comment(s): TOOK LONGER TO WAKE UP WITH KNEE SURGERY PER PATIENT Smoking Status: Current every day smoker - Past Family History Mother Family Medical History: Diabetes Mellitus Additional Family Medical History / Comment(s): Patient reports history of cancer in the family including breast cancer, liver cancer, brain cancer, prostate cancer Medications and Allergies Home Medications Medication Instructions Recorded Confirmed Type Docusate [Colace] 100 mg PO DAILY PRN cap 02/12/18 03/31/18 Rx Mag Hydrox/Al Hydrox/Simeth 30 ml PO Q4HR PRN cup 02/12/18 03/31/18 Rx [Maalox] Pantoprazole [Protonix] 40 mg PO DAILY #30 tablet.dr 02/12/18 03/31/18 Rx Simethicone 40 mg/0.6 ml Drops 40 mg PO QID ml 02/12/18 03/31/18 Rx [Mylicon Drops] Dicyclomine [Bentyl] 10 mg PO TID #15 capsule 03/07/18 03/31/18 Rx Allergies Allergy/AdvReac Type Severity Reaction Status Date / Time adhesive Allergy Rash/Hives Verified 04/01/18 09:13 tetanus immune globulin Allergy Anaphylaxis Verified 04/01/18 09:13 Surgical - Exam Vital Signs Temp Pulse Resp BP Pulse Ox 08.2 F L 69 18 112/59 96 04/01/18 09:07 04/01/18 09:07 04/01/18 09:07 04/01/18 09:07 04/01/18 09:07 - General well developed, no distress - Eyes PERRL - ENT normal pinna - Neck no masses - Respiratory normal expansion - Cardiovascular Rhythm: regular - Abdomen Abdomen: soft, non tender Assessment and Plan Assessment: History of gastric antral ulcer. We'll perform EGD.
--- NOTE | 2018-04-01 10:26 | P.OP ---
Date of Procedure: 04/01/18 Preoperative Diagnosis: Peptic ulcer disease Postoperative Diagnosis: Antral gastritis Small sliding hiatal hernia Procedure(s) Performed: EGD Anesthesia: MAC Surgeon: Torrey Dominguez Pathology: other (Antrum) Condition: stable Disposition: PACU Description of Procedure: The patient's placed on the endoscopy table lateral position. She received IV sedation. The gastroscope placed oropharynx passed in the esophagus into the stomach. Scope was then placed through the pylorus. First and second portion of the duodenum appeared normal. The scope was then brought back the antrum and there is evidence of some gastritis. The previous ulcer appeared to heal. The scope was then retroflexed and remainder stomach appeared normal. The GE junction was at 40 cm. The distal esophagus appeared minimally inflamed. There was a small sliding hiatal hernia. The proximal esophagus appeared normal. The scope was withdrawn for patient.
[2018-04-01 10:43] VITALS: BP 128/78; PULSE 75; RESP 18
--- NOTE | 2018-04-03 16:51 | CDI ---
Outpatient Documentation Clarification Form Date: 04/03/18 CDS/Field Control Inspector Name: Kellie Nelson Phone: If any questions, call [facility]ann [facility] [employer] at [phone] Patient Name: Dana Vivar Admit Date: 04/01/18 Discharge Date: 04/01/18 ATTENTION: The [facility] Coding Staff appreciate your assistance in clarifying documentation. Please respond to the clarification below the line at the bottom and electronically sign. The [facility] Coding staff will review the response and follow-up if needed. Please note: Queries are made part of the Legal Health Record. If you have any questions, please contact the [employer]. Dear Dr. Torrey Dominguez, The Pathology report indicates that a biopsy was performed, yet the Description of Procedure on the Operative report makes no mention of a biopsy being done. Was a biopsy performed? If so, please describe where and how. Thank you for your kind consideration. MTDD
== END 2018-04-01 11:03 | disposition home or self-care (01) ==
LOC: ORWHC2ENDO 08:51
PROVIDERS: ATTEND Surgery
DX: K29.50 Unspecified chronic gastritis without bleeding (principal); K44.9 Diaphragmatic hernia without obstruction or gangrene; Z87.11 Personal history of peptic ulcer disease; M19.90 Unspecified osteoarthritis, unspecified site; Z90.49 Acquired absence of other specified parts of digestive tract; Z96.652 Presence of left artificial knee joint; F17.200 Nicotine dependence, unspecified, uncomplicated; Z79.899 Other long term (current) drug therapy; Z88.7 Allergy status to serum and vaccine; Z91.048 Other nonmedicinal substance allergy status
CPT/HCPCS: 81025; 88305; 43239; J2001; J2704

== ENCOUNTER 2018-04-10 02:59 | Observation (INO) | payer OTHER ==
[2018-04-10] MEDS ORDERED: ONDANSETRON 4 MG/2 ML VIAL IVP STA (03:08)
[2018-04-10] MEDS ORDERED: HYDROmorphone 1 MG/ML 1 ML SYRINGE IVP STA ×2 (03:08→20:43)
[2018-04-10] MEDS ORDERED: DICYCLOMINE 10 MG/ML 2 ML AMP IM STA (03:08)
[2018-04-10] MEDS ORDERED: SODIUM CHLORIDE 0.9% 1,000 ML IV STA (03:08)
[2018-04-10] MEDS ORDERED: MAG HYDROX/AL HYDROX/SIMETH 30 ML, HYOSCYAMINE ELIXIR 10 ML, CIMETIDINE HCL 300 MG, LID... PO STA ×4 (03:09)
[2018-04-10] MEDS ORDERED: FAMOTIDINE 20 MG/2 ML VIAL IV STA (03:09)
--- NOTE | 2018-04-10 03:16 | ED ---
Abdominal Pain HPI - General Source: patient, EMS, RN notes reviewed Mode of arrival: EMS Limitations: no limitations <Divya Smalls - Last Filed: 04/10/18 03:42> <Fiona Mancia - Last Filed: 04/10/18 05:33> - General Chief Complaint: Abdominal Pain Stated Complaint: Abd pain Time Seen by Provider: 04/10/18 03:02 - History of Present Illness Initial Comments: This is a 43-year-old female with history of gastric ulcers who presents to the emergency department with chief complaint of abdominal pain. Patient states that she was diagnosed with gastric ulcers last month and was seen in the emergency department 5 times. She states that on the she had a scope and was told that the ulcers were healing. She states that at 10 PM this evening she developed epigastric abdominal pain that she describes as feeling like a "gas bubble." She states that the pain has progressively worsened through the night. She describes the current pain as burning, sharp and cramping. She states the pain has been constant. She reports nausea but denies vomiting. Denies fevers or chills, chest pain or shortness of breath, diarrhea or constipation. States that she has been avoiding acidic foods and has been taking all of her prescribed medications. (Divya Smalls) - Related Data Previous Rx's Medication Instructions Recorded Docusate [Colace] 100 mg PO DAILY PRN cap 02/12/18 Mag Hydrox/Al Hydrox/Simeth 30 ml PO Q4HR PRN cup 02/12/18 [Maalox] Pantoprazole [Protonix] 40 mg PO DAILY #30 tablet. 02/12/18 Simethicone 40 mg/0.6 ml Drops 40 mg PO QID ml 02/12/18 [Mylicon Drops] Dicyclomine [Bentyl] 10 mg PO TID #15 capsule 03/07/18 Allergies Allergy/AdvReac Type Severity Reaction Status Date / Time adhesive Allergy Rash/Hives Verified 04/01/18 09:13 tetanus immune globulin Allergy Anaphylaxis Verified 04/01/18 09:13 Review of Systems ROS Other: All systems not noted in ROS Statement are negative. <Divya Smalls - Last Filed: 04/10/18 03:42> ROS Other: All systems not noted in ROS Statement are negative. <Fiona Mancia - Last Filed: 04/10/18 05:33> ROS Statement: Those systems with pertinent positive or pertinent negative responses have been documented in the HPI. Past Medical History Past Medical History: Osteoarthritis (OA) Additional Past Medical History / Comment(s): gastritis, History of Any Multi-Drug Resistant Organisms: None Reported Past Surgical History: Cholecystectomy, Joint Replacement Additional Past Surgical History / Comment(s): TOTAL LEFT KNEE Past Anesthesia/Blood Transfusion Reactions: Previous Problems w/ Anesthesia Additional Past Anesthesia/Blood Transfusion Reaction / Comment(s): TOOK LONGER TO WAKE UP WITH KNEE SURGERY PER PATIENT Past Psychological History: No Psychological Hx Reported Smoking Status: Current every day smoker Past Alcohol Use History: None Reported Past Drug Use History: None Reported - Past Family History Mother Family Medical History: Diabetes Mellitus Additional Family Medical History / Comment(s): Patient reports history of cancer in the family including breast cancer, liver cancer, brain cancer, prostate cancer <Divya Smalls M - Last Filed: 04/10/18 03:42> General Exam Limitations: no limitations <Divya Smalls M - Last Filed: 04/10/18 03:42> <Fiona Mancia P - Last Filed: 04/10/18 05:33> - General Exam Comments Initial Comments: General: Awake and alert, well-developed; anxious, screaming and crying in distress due to pain. Clutching at her upper abdomen. HEENT: Head atraumatic, normocephalic. Pupils are equal, round and reactive to light. Extraocular movements intact. Oropharynx moist without erythema or exudate. Poor dentition throughout. Neck: Supple. Normal ROM. Cardiovascular: Regular rate and rhythm. No murmurs, rubs or gallops. Chest symmetrical. Respiratory: Lungs clear to auscultation bilaterally. No wheezes, rales or rhonchi. Normal respiratory effort with no use of accessory muscles. Abdomen: Soft, non-distended. Tenderness on palpation of the epigastrium and left upper quadrant with voluntary guarding. No rigidity or rebound. Normal bowel sounds in all 4 quadrants. Musculoskeletal: Normal ROM, no tenderness bilateral upper and lower extremities. Skin: [place], warm and dry without rashes or lesions. Neurological: Alert and oriented x3. CN II-XII grossly intact. Speech is fluent and answers are appropriate. No focal neuro deficits. (Divya Smalls) Vital Signs 04/10/18 04/10/18 03:00 05:22 Temperature 96.9 F L 98.0 F Pulse Rate 80 96 Respiratory 20 18 Rate Blood Pressure 141/62 145/65 O2 Sat by Pulse 98 98 Oximetry Medical Decision Making <Divya Smalls - Last Filed: 04/10/18 03:42> - Lab Data Result diagrams: 04/10/18 03:40 04/10/18 03:40 <Fiona Mancia - Last Filed: 04/10/18 05:33> - Medical Decision Making Patient care was signed out to me by Kellie MILES. Patient presented with acute abdominal pain. Patient with a history of gastritis and ulcer disease. She was treated aggressively with multiple medication she declined a GI cocktail. Labs revealed mild leukocytosis, CMP normal with no elevations of transaminases or lipase. X-ray reveals a possible ileus. Nonobstructive pattern. Results were discussed with the patient who is still complaining of abdominal pain. Upon my evaluation the patient started vomiting. The patient states she doesn't feel comfortable being discharged home in this condition. She states that she has been admitted to the hospital multiple times for similar symptoms. At this time I will place the patient in observation for further IV fluid hydration meds and monitoring. (Fiona Mancia) - Lab Data Lab Results 04/10/18 04/10/18 Range/Units 03:40 03:40 WBC 14.5 H (3.8-10.6) k/uL RBC 4.70 (3.80-5.40) m/uL Hgb 14.5 (11.4-16.0) gm/dL Hct 43.6 (34.0-46.0) % MCV 92.9 (80.0-100.0) fL MCH 30.9 (25.0-35.0) pg MCHC 33.2 (31.0-37.0) g/dL RDW 13.9 (11.5-15.5) % Plt Count 221 (150-450) k/uL Neutrophils % 76 % Lymphocytes % 18 % Monocytes % 3 % Eosinophils % 2 % Basophils % 0 % Neutrophils # 11.1 H (1.3-7.7) k/uL Lymphocytes # 2.6 (1.0-4.8) k/uL Monocytes # 0.4 (0-1.0) k/uL Eosinophils # 0.3 (0-0.7) k/uL Basophils # 0.0 (0-0.2) k/uL Sodium 139 (137-145) mmol/L Potassium 3.8 (3.5-5.1) mmol/L Chloride 110 H (98-107) mmol/L Carbon Dioxide 20 L (22-30) mmol/L Anion Gap 9 mmol/L BUN 13 (7-17) mg/dL Creatinine 0.57 (0.52-1.04) mg/dL Est GFR (CKD-EPI)AfAm >90 (>60 ml/min/1.73 sqM) Est GFR (CKD-EPI)NonAf >90 (>60 ml/min/1.73 sqM) Glucose 110 H (74-99) mg/dL Calcium 10.0 (8.4-10.2) mg/dL Total Bilirubin 0.5 (0.2-1.3) mg/dL AST 23 (14-36) U/L ALT 22 (9-52) U/L Alkaline Phosphatase 102 (38-126) U/L Total Protein 7.0 (6.3-8.2) g/dL Albumin 3.9 (3.5-5.0) g/dL Amylase 34 (30-110) U/L Lipase 30 (23-300) U/L - EKG Data EKG Comments: 3:13:50. Normal sinus rhythm, low voltage QRS. Ventricular rate 72 bpm, NJ interval 134, QRS duration 70, QT/QTC 390/427 (Divya Smalls) Disposition <Divya Smalls - Last Filed: 04/10/18 03:42> <Fiona Mancia - Last Filed: 04/10/18 05:33> Clinical Impression: Abdominal pain, Ileus, Vomiting, Leukocytosis Disposition: ADMITTED IP TO THIS HOSP
[2018-04-10 03:52] LABS: Basophils % (A) 0 %; Eosinophils # (A) 0.3 k/uL (0-0.7); Eosinophils % (A) 2 %; HCT 43.6 % (34.0-46.0); HGB 14.5 gm/dL (11.4-16.0); Lymphocytes # (A) 2.6 k/uL (1.0-4.8); Lymphocytes % (A) 18 %; MCH 30.9 pg (25.0-35.0); MCHC 33.2 g/dL (31.0-37.0); MCV 92.9 fL (80.0-100.0); Mean Platelet Volume 8.4; Monocytes # (A) 0.4 k/uL (0-1.0); Monocytes % (A) 3 %; Neutrophils # (A) 11.1 k/uL (1.3-7.7); Neutrophils % (A) 76 %; Platelet Count 221 k/uL (150-450); RDW 13.9 % (11.5-15.5); WBC 14.5 k/uL (3.8-10.6)
[2018-04-10 04:03] LABS: ALT 22 U/L (9-52); AST 23 U/L (14-36); Albumin 3.9 g/dL (3.5-5.0); Alkaline Phosphatase 102 U/L (38-126); Amylase 34 U/L (30-110); Anion Gap 9 mmol/L; Blood Urea Nitrogen 13 mg/dL (7-17); Carbon Dioxide 20 mmol/L (22-30); Chloride 110 mmol/L (98-107); Glucose 110 mg/dL (74-99); Lipase 30 U/L (23-300); Potassium 3.8 mmol/L (3.5-5.1); Sodium 139 mmol/L (137-145); Total Bilirubin 0.5 mg/dL (0.2-1.3)
--- NOTE | 2018-04-10 04:18 | XR ---
EXAMINATION TYPE: XR KUB DATE OF EXAM: 04/10/2018 COMPARISON: 03/07/2018 HISTORY: Abdominal pain TECHNIQUE: 2 views upright FINDINGS: There are clips from cholecystectomy. There is no sign of intestinal obstruction or pneumop eritoneum. There is IUD noted. There are no pathologic calcifications over the kidneys. There are a f ewer air and fluid filled small bowel loops in the mid abdomen. There is slight blunting of left cost ophrenic angle. IMPRESSION: Possible small left pleural effusion. Small bowel air pattern could relate to mild ileus. No free air. There is less small bowel distention than old exam.
[2018-04-10] MEDS ORDERED: METOCLOPRAMIDE 5 MG/ML 2 ML VIAL IVP STA (04:54)
[2018-04-10] MEDS ORDERED: diphenhydrAMINE 50 MG/ML 1 ML VIAL IVP STA (04:54)
[2018-04-10] MEDS ORDERED: NALOXONE 0.4 MG/ML 1 ML VIAL IV PRN (04:55)
[2018-04-10] MEDS ORDERED: LORazepam 1 MG TAB PO STA (05:20)
[2018-04-10] MEDS ORDERED: MORPHINE SULFATE 4 MG/ML SYRINGE IVP PRN (05:21)
[2018-04-10] MEDS: SODIUM CHLORIDE 0.9% 1,000 ML IV SCH ×3 (05:26→14:46)
[2018-04-10] MEDS: ONDANSETRON 4 MG/2 ML VIAL IVP PRN ×2 (08:12→19:34)
[2018-04-10] MEDS: SUCRALFATE 1 GM TAB PO SCH ×4 (08:13→19:47)
[2018-04-10 08:22] LABS: Glucose,Whole Blood 121 mg/dL (75-99)
[2018-04-10 10:23] LABS: Creatine Kinase <20 U/L (30-135)
[2018-04-10] MEDS ORDERED: IOPAMIDOL-300 CONTRAST 30 ML VIAL (ORAL USE) PO PRN (10:27)
[2018-04-10 10:38] LABS: Creatine Kinase MB 0.3 ng/mL (0.0-2.4); Troponin I <0.012 ng/mL (0.000-0.034)
--- NOTE | 2018-04-10 10:44 | ECHOF ---
Referral Reason: MEASUREMENTS -------- HEIGHT: 182.9 cm WEIGHT: 78.0 kg BP: IVSd: 1.2 cm (0.6 - 1.1) LVIDd: 3.5 cm (3.9 - 5.3) LVPWd: 1.1 cm (0.6 - 1.1) IVSs: 1.5 cm LVIDs: 1.2 cm LVPWs: 1.7 cm Ao Diam: 2.9 cm (2.0 - 3.7) AV Cusp: 1.7 cm (1.5 - 2.6) LA Diam: 2.8 cm (2.7 - 3.8) MV EXCURSION: 14.577 mm (> 18.000) MV EF SLOPE: 75 mm/s (70 - 150) EPSS: 1.5 cm MV E Anthony: 1.06 m/s MV DecT: 221 ms MV A Anthony: 0.66 m/s MV E/A Ratio: 1.61 RAP: 5.00 mmHg RVSP: 33.10 mmHg FINDINGS -------- Sinus rhythm. This was a technically difficult study with suboptimal views. The left ventricular size is normal. There is borderline concentric left ventricular hypertrophy. Overall left ventricular systolic function is normal with, an EF between 55 - 60 %. The right ventricle is normal in size and function. The left atrium is normal in size. The right atrium is normal in size. The aortic valve is trileaflet, and appears structurally normal. No aortic stenosis or regurgitation. There is trace mitral regurgitation. Trace tricuspid regurgitation present. The right ventricular systolic pressure, as measured by Dopp ler, is 33.10mmHg. Pulmonic valve appears structurally normal. The aortic root size is normal. The pericardium is normal. CONCLUSIONS -------- 1. Sinus rhythm. 2. This was a technically difficult study with suboptimal views. 3. The left ventricular size is normal. 4. There is borderline concentric left ventricular hypertrophy. 5. Overall left ventricular systolic function is normal with, an EF between 55 - 60 %. 6. The right ventricle is normal in size and function. 7. The left atrium is normal in size. 8. The right atrium is normal in size. 9. The aortic valve is trileaflet, and appears structurally normal. No aortic stenosis or regurgitati on. 10. There is trace mitral regurgitation. 11. Trace tricuspid regurgitation present. 12. The right ventricular systolic pressure, as measured by Doppler, is 33.10mmHg. 13. Pulmonic valve appears structurally normal. 14. The aortic root size is normal. 15. The pericardium is normal. PIG MACHINE SUPERVISOR: Mariela Nuñez RDCS
--- NOTE | 2018-04-10 10:51 | P.GSCN ---
History of Present Illness Consult date: 04/10/18 History of present illness: 43-year-old female being seen at the request of the attending for a surgical eval for persistent abdominal pain patient states that she has been in the emergency room at least 5 times in the last month for similar pain. points to her mid epigastric area states it starts there and radiates to the left side. Patient has had numerous imaging done to workup similar epigastric discomfort. On April 01 patient underwent an EGD. Reviewing the report showed small hiatal hernia with no evidence of ulcerative disease. Mild gastritis. Did review the path report done from the EGD on April 01 showed mild chronic gastritis H. pylori not identified. Additionally patient underwent an MRCP MR done on February 16 it showed no filling defect within the biliary system Patient had a KUB done this admission in the emergency room reviewing the report showed small bowel air pattern could relate to a mild ileus no free air less small bowel distention compared to prior exam at the time of my exam at the bedside patient is yelling out with pain points to the midepigastric area. Patient states it comes in waves feels like a gas bubble caught under the ribs them. Patient states she has unintentionally lost 20 pounds over the last several months patient contributes it to. Only eats chicken Reports a nausea sensation no active emesis. When questioning patient patient denies any burning on urination frequency urgency or change in her bowel habits. Patient does give a history of 10 years prior having a cholecystectomy done. Patient states the only thing that seems to give relief "is the IV pain medication" patient states she has been compliant with taking her medication as prescribed White count on admission 14.5 the white count in March 07 was 13.5 Review of Systems Essentially unremarkable except as mentioned in the present illness Past Medical History Past Medical History: Osteoarthritis (OA) Additional Past Medical History / Comment(s): gastritis, History of Any Multi-Drug Resistant Organisms: None Reported Past Surgical History: Cholecystectomy, Joint Replacement Additional Past Surgical History / Comment(s): TOTAL LEFT KNEE Past Anesthesia/Blood Transfusion Reactions: Previous Problems w/ Anesthesia Additional Past Anesthesia/Blood Transfusion Reaction / Comm: TOOK LONGER TO WAKE UP WITH KNEE SURGERY PER PATIENT Past Psychological History: No Psychological Hx Reported Smoking Status: Current every day smoker Past Alcohol Use History: None Reported Additional Past Alcohol Use History / Comment(s): STARTED SMOKING AT AGE 14 SMOKES 6 CIG A DAY Past Drug Use History: None Reported - Past Family History Mother Family Medical History: Diabetes Mellitus Additional Family Medical History / Comment(s): Patient reports history of cancer in the family including breast cancer, liver cancer, brain cancer, prostate cancer Father Family Medical History: Diabetes Mellitus Additional Family Medical History / Comment(s): heart patient Medications and Allergies Home Medications Medication Instructions Recorded Confirmed Type Docusate [Colace] 100 mg PO DAILY PRN cap 02/12/18 03/31/18 Rx Mag Hydrox/Al Hydrox/Simeth 30 ml PO Q4HR PRN cup 02/12/18 03/31/18 Rx [Maalox] Pantoprazole [Protonix] 40 mg PO DAILY #30 tablet. 02/12/18 03/31/18 Rx Simethicone 40 mg/0.6 ml Drops 40 mg PO QID ml 02/12/18 03/31/18 Rx [Mylicon Drops] Dicyclomine [Bentyl] 10 mg PO TID #15 capsule 03/07/18 03/31/18 Rx Allergies Allergy/AdvReac Type Severity Reaction Status Date / Time adhesive Allergy Rash/Hives Verified 04/10/18 05:48 tetanus immune globulin Allergy Anaphylaxis Verified 04/10/18 05:48 Surgical - Exam Vital Signs Temp Pulse Resp BP Pulse Ox 96.9 F L 80 20 141/62 98 04/10/18 03:00 04/10/18 03:00 04/10/18 03:00 04/10/18 03:00 04/10/18 03:00 GENERAL APPEARANCE: 43-year-old female patient yelling aloud having abdominal pain points to the midepigastric area VITAL SIGNS: Reviewed HEENT: Head is normocephalic and atraumatic. Pupils are equal and reactive. The nares are patent. Oropharynx is clear without lesions. NECK: Supple without lymphadenopathy. Traches midline. HEART: S1, S2. Regular rate and rhythm. No murmur noted LUNGS: No crackles or wheezes are heard. On room air adequate air movement ABDOMEN: Soft, mild tenderness with palpitation to the midepigastric area nondistended with good bowel sounds. No peritoneal signs. No palpable organomegaly or masses. Denies any burning on urination frequency urgency denies any vomiting states nauseated EXTREMITIES: Normal skin color and turgor. No cyanosis, rash, ulceration, clubbing or edema. Radial pedal pulses are 2/4 bilaterally. NEUROLOGICAL: No focal deficits. Strength and sensation are grossly intact. Results - Labs 04/10/18 03:40 04/10/18 03:40 Abnormal Lab Results - Last 24 Hours (Table) 04/10/18 04/10/18 04/10/18 Range/Units 03:40 03:40 08:21 WBC 14.5 H (3.8-10.6) k/uL Neutrophils # 11.1 H (1.3-7.7) k/uL Chloride 110 H (98-107) mmol/L Carbon Dioxide 20 L (22-30) mmol/L Glucose 110 H (74-99) mg/dL POC Glucose (mg/dL) 121 H (75-99) mg/dL Diabetes panel 04/10/18 Range/Units 03:40 Sodium 139 (137-145) mmol/L Potassium 3.8 (3.5-5.1) mmol/L Chloride 110 H (98-107) mmol/L Carbon Dioxide 20 L (22-30) mmol/L BUN 13 (7-17) mg/dL Creatinine 0.57 (0.52-1.04) mg/dL Glucose 110 H (74-99) mg/dL Calcium 10.0 (8.4-10.2) mg/dL AST 23 (14-36) U/L ALT 22 (9-52) U/L Alkaline Phosphatase 102 (38-126) U/L Total Protein 7.0 (6.3-8.2) g/dL Albumin 3.9 (3.5-5.0) g/dL Calcium panel 04/10/18 Range/Units 03:40 Calcium 10.0 (8.4-10.2) mg/dL Albumin 3.9 (3.5-5.0) g/dL Pituitary panel 04/10/18 Range/Units 03:40 Sodium 139 (137-145) mmol/L Potassium 3.8 (3.5-5.1) mmol/L Chloride 110 H (98-107) mmol/L Carbon Dioxide 20 L (22-30) mmol/L BUN 13 (7-17) mg/dL Creatinine 0.57 (0.52-1.04) mg/dL Glucose 110 H (74-99) mg/dL Calcium 10.0 (8.4-10.2) mg/dL Adrenal panel 04/10/18 Range/Units 03:40 Sodium 139 (137-145) mmol/L Potassium 3.8 (3.5-5.1) mmol/L Chloride 110 H (98-107) mmol/L Carbon Dioxide 20 L (22-30) mmol/L BUN 13 (7-17) mg/dL Creatinine 0.57 (0.52-1.04) mg/dL Glucose 110 H (74-99) mg/dL Calcium 10.0 (8.4-10.2) mg/dL Total Bilirubin 0.5 (0.2-1.3) mg/dL AST 23 (14-36) U/L ALT 22 (9-52) U/L Alkaline Phosphatase 102 (38-126) U/L Total Protein 7.0 (6.3-8.2) g/dL Albumin 3.9 (3.5-5.0) g/dL Assessment and Plan Assessment: Impression Present on admission intractable midepigastric pain unclear etiology Present on admission leukocytosis suspect reactive Recent EGD April 01 with biopsies showed small hiatal hernia, antral gastritis no evidence of ulcerative disease biopsy report negative for H. pylori showed chronic gastritis EGD with biopsy done by Dr. Gomez February 11 reviewed the report mild atrophic gastritis no evidence of esophagitis or peptic ulcer disease. MRI reviewed the report done on February 16 no filling defect within the biliary system no evidence of dilated intrahepatic biliary ducts. History of a cholecystectomy 10 years prior CAT scan abdomen and pelvis February 16 reviewed the report showed no acute findings Obesity BMI 34 KUB done in the emergency room reviewing the report small bowel air pattern could relate to mild ileus no free air Plan Computed tomography scan abdomen pelvis with contrast now follow up on results Protonic 40 daily Pain control Repeat labs in the morning Obtain urine sent for Urinalysis sent for culture and sensitivity if appropriate No evidence of an acute surgical abdomen at this time We'll follow with you Surgical consultation dictated for The above impression and plan of care have been discussed and directed by signing physician. Tamara Polo nurse practitioner acting as scribe for signing physician.
--- NOTE | 2018-04-10 11:21 | P.CRDCN ---
History of Present Illness Consult date: 04/10/18 History of present illness: This is a 43-year-old female who has been visiting emergency room with abdominal pain on several occasions. This time, patient again came with complaints of down pain pointing towards the mid epigastric area. Patient claims the pain comes in waves and starts in the epigastric area and some radiation to the left shoulder area. Patient apparently had multiple evaluations including upper endoscopy and also MRCP MR. Upper endoscopy done on April 01 showed evidence of gastritis without any ulceration. She doesn' t have any history of previous cardiac issues. No history of angina or previous myocardial infarction. Her EKGs don't show any acute changes. Her cardiac enzymes studies are negative. Patient does have tenderness in the upper abdominal area. She has a previous cholecystectomy. She is seen by surgical colics for further evaluation. Her pains are clearly not cardiac in nature. Echocardiogram will be done to assess wall motion abnormalities. If the echo is normal. No further cardiac workup is necessary. Recommend surgical follow-up and GI follow-up Review of Systems As per the chart Past Medical History Past Medical History: Osteoarthritis (OA) Additional Past Medical History / Comment(s): gastritis, History of Any Multi-Drug Resistant Organisms: None Reported Past Surgical History: Cholecystectomy, Joint Replacement Additional Past Surgical History / Comment(s): TOTAL LEFT KNEE Past Anesthesia/Blood Transfusion Reactions: Previous Problems w/ Anesthesia Additional Past Anesthesia/Blood Transfusion Reaction / Comment(s): TOOK LONGER TO WAKE UP WITH KNEE SURGERY PER PATIENT Past Psychological History: No Psychological Hx Reported Smoking Status: Current every day smoker Past Alcohol Use History: None Reported Additional Past Alcohol Use History / Comment(s): STARTED SMOKING AT AGE 14 SMOKES 6 CIG A DAY Past Drug Use History: None Reported - Past Family History Mother Family Medical History: Diabetes Mellitus Additional Family Medical History / Comment(s): Patient reports history of cancer in the family including breast cancer, liver cancer, brain cancer, prostate cancer Father Family Medical History: Diabetes Mellitus Additional Family Medical History / Comment(s): heart patient Medications and Allergies Home Medications Medication Instructions Recorded Confirmed Type Docusate [Colace] 100 mg PO DAILY PRN cap 02/12/18 03/31/18 Rx Mag Hydrox/Al Hydrox/Simeth 30 ml PO Q4HR PRN cup 02/12/18 03/31/18 Rx [Maalox] Pantoprazole [Protonix] 40 mg PO DAILY #30 tablet. 02/12/18 04/10/18 Rx Simethicone 40 mg/0.6 ml Drops 40 mg PO QID ml 02/12/18 03/31/18 Rx [Mylicon Drops] Dicyclomine [Bentyl] 10 mg PO TID #15 capsule 03/07/18 03/31/18 Rx Allergies Allergy/AdvReac Type Severity Reaction Status Date / Time adhesive Allergy Rash/Hives Verified 04/10/18 11:07 tetanus immune globulin Allergy Anaphylaxis Verified 04/10/18 11:07 Physical Exam Vitals: Vital Signs Temp Pulse Pulse Pulse Resp BP BP 04/10/18 08:15 98.3 F 55 L 18 120/77 04/10/18 07:00 98.2 F 62 18 102/65 04/10/18 05:35 98.3 F 56 L 16 118/79 04/10/18 05:22 98.0 F 96 18 145/65 04/10/18 03:00 96.9 F L 80 20 141/62 Pulse Ox 04/10/18 08:15 94 L 04/10/18 07:00 96 04/10/18 05:35 93 L 04/10/18 05:22 98 04/10/18 03:00 98 Intake and Output 04/09/18 04/10/18 04/10/18 22:59 06:59 14:59 Intake Total 125 Output Total 200 Balance 125 -200 Intake: Intake, IV Titration 125 Amount Sodium Chloride 0.9% 1, 125 000 ml @ 125 mls/hr IV . Q8H [facility] Rx#:[id number] Output: Emesis 200 Other: # Emeses 1 Weight 78.018 kg GENERAL EXAM: Patient is alert and oriented and seemed to be groaning with pain HEENT: Normocephalic. NECK: No masses, no nuchal rigidity. CHEST: No chest wall deformity. LUNGS: Equal air entry with no crackles or wheeze. HEART: S1 and S2 normal with no audible mumurs or gallops. ABDOMEN: Distended with some tenderness which is diffuse SKIN: No rashes CENTRAL NERVOUS SYSTEM: No focal deficits. EXTREMITIES: No cyanosis, clubbing or edema. Results 04/10/18 03:40 04/10/18 03:40 Cardiac Enzymes 04/10/18 04/10/18 Range/Units 03:40 09:08 AST 23 (14-36) U/L CK-MB (CK-2) 0.3 (0.0-2.4) ng/mL Troponin I <0.012 (0.000-0.034) ng/mL CBC 04/10/18 Range/Units 03:40 WBC 14.5 H (3.8-10.6) k/uL RBC 4.70 (3.80-5.40) m/uL Hgb 14.5 (11.4-16.0) gm/dL Hct 43.6 (34.0-46.0) % Plt Count 221 (150-450) k/uL Comprehensive Metabolic Panel 04/10/18 Range/Units 03:40 Sodium 139 (137-145) mmol/L Potassium 3.8 (3.5-5.1) mmol/L Chloride 110 H (98-107) mmol/L Carbon Dioxide 20 L (22-30) mmol/L BUN 13 (7-17) mg/dL Creatinine 0.57 (0.52-1.04) mg/dL Glucose 110 H (74-99) mg/dL Calcium 10.0 (8.4-10.2) mg/dL AST 23 (14-36) U/L ALT 22 (9-52) U/L Alkaline Phosphatase 102 (38-126) U/L Total Protein 7.0 (6.3-8.2) g/dL Albumin 3.9 (3.5-5.0) g/dL Current Medications Generic Name Dose Route Start Last Admin Trade Name Freq PRN Reason Stop Dose Admin Heparin Sodium (Porcine) 5,000 unit 04/10/18 16:00 Heparin SQ Q8HR [facility] Sodium Chloride 1,000 mls @ 125 mls/hr 04/10/18 05:00 04/10/18 05:26 Saline 0.9% IV 125 mls/hr .Q8H [facility] Administration Iopamidol 30 ml 04/10/18 10:27 Isovue-300 30 Ml (For Oral Use) PO 04/11/18 10:[address] Scan Morphine Sulfate 2 mg 04/10/18 10:29 Morphine Sulfate (Inj) IVP Q4HR PRN Moderate Pain Naloxone HCl 0.2 mg 04/10/18 04:55 Narcan IV Q2M PRN Opioid Reversal Ondansetron HCl 4 mg 04/10/18 04:55 04/10/18 08:12 Zofran IVP 4 mg Q8HR PRN Administration Nausea And Vomiting Pantoprazole Sodium 40 mg 04/10/18 10:45 Protonix IVP BID [facility]ELLE Sucralfate 1 gm 04/10/18 07:30 04/10/18 08:13 Carafate PO 1 gm ACHS [facility]ARCELLE Administration Intake and Output 04/09/18 04/10/18 04/10/18 22:59 06:59 14:59 Intake Total 125 Output Total 200 Balance 125 -200 Intake: Intake, IV Titration 125 Amount Sodium Chloride 0.9% 1, 125 000 ml @ 125 mls/hr IV . Q8H [facility] Rx#:[id number] Output: Emesis 200 Other: # Emeses 1 Weight 78.018 kg 04/10/18 03:40 04/10/18 03:40 EKG Interpretations (text) Sinus rhythm without any acute changes Assessment and Plan (1) Atypical chest pain Current Visit: Yes Status: Acute Code(s): R07.89 - OTHER CHEST PAIN SNOMED Code(s): 821241150 (2) Abdominal pain Current Visit: Yes Status: Acute Code(s): R10.9 - UNSPECIFIED ABDOMINAL PAIN SNOMED Code(s): 41625221 Plan: Her pains are mostly abdominal tenderness with some radiation to the chest. EKGs and cardiac enzymes are negative. Echocardiogram is being done. If that is normal, no further cardiac workup
--- NOTE | 2018-04-10 11:49 | CT ---
EXAMINATION TYPE: CT abdomen pelvis w con DATE OF EXAM: 04/10/2018 COMPARISON: February 16, 2018 HISTORY: mid ab pain CT DLP: 1774 mGycm CONTRAST: CT scan of the abdomen and pelvis is performed without Oral Contrast and with IV Contrast, patient in jected with 100 mL of Isovue 300. FINDINGS: LUNG BASES-: No visible nodule. No infiltrate. LIVER/GB: Cholecystectomy clips are in place. No space occupying hepatic lesion. Biliary tree is o f normal caliber. PANCREAS: No inflammation. No distinct mass. SPLEEN: No splenic enlargement. No lesion seen. ADRENALS: No nodule. No thickening. KIDNEYS/BLADDER: No hydronephrosis. No nephrolithiasis. No distinct renal mass. Urinary bladder g rossly unremarkable. BOWEL: Normal appendix. Normal bowel caliber. No inflammation. GENITAL ORGANS: Right ovarian cyst measuring 3.5 cm. Left ovary is unremarkable. IUD is noted within the uterus. LYMPH NODES: No greater than 1cm abdominal or pelvic lymph nodes are appreciated. AORTA: No significant abnormality. OSSEOUS STRUCTURES: No significant abnormality is seen. OTHER: No significant additional abnormality is seen. IMPRESSION: 1. Right ovarian cyst. 2. Fatty liver.
[2018-04-10] MEDS: PANTOPRAZOLE 40 MG/10 ML VIAL IVP SCH ×2 (13:30→19:34)
[2018-04-10 16:12] LABS: Appearance,Urine Cloudy (Clear); Bilirubin,Urine Negative (Negative); Blood,Urine Large (Negative); Color,Urine Red; Glucose,Urine (UA) Negative (Negative); Ketones,Urine Trace (Negative); Leukocyte Esterase,Urine Small (Negative); Mucus,Urine Occasional /hpf; Nitrite,Urine Negative (Negative); Protein,Urine 1+ (Negative); RBC,Urine >182 /hpf (0-5); Urobilinogen,Urine <2.0 mg/dL (<2.0); WBC,Urine 68 /hpf (0-5)
[2018-04-10 16:19] LABS: Amphetamine Screen,Urine Not Detected (NotDetected); Barbiturate Screen,Urine Not Detected (NotDetected); Benzodiazepines Screen,Urine Detected (NotDetected); Cocaine Screen,Urine Not Detected (NotDetected); Methadone Screen, Urine Not Detected (NotDetected); Opiate Screen,Urine Detected (NotDetected); Oxycodone Screen, Urine Not Detected (NotDetected); Phencyclidine Screen,Urine Not Detected (NotDetected); Tricyclic Antidepressant,Urine Not Detected (NotDetected); Urn Cannabinoid Scrn Not Detected (NotDetected)
[2018-04-10] MEDS: HEPARIN SODIUM,PORCINE 5,000 UNIT/ML 1 ML VIAL SQ SCH (16:54)
[2018-04-10 17:07] LABS: Specific Gravity,Urine >1.050 (1.001-1.035)
--- NOTE | 2018-04-10 19:15 | HP ---
HISTORY AND PHYSICAL CHIEF COMPLAINTS: Abdominal pain. HISTORY OF PRESENT ILLNESS: This 43-year-old woman with a past medical history of multiple medical problems including DJD, history of gastritis, history of cholecystectomy being followed by Dr. Alice Jensen in the outpatient setting, noted to have recently gastric ulcer on EGD done by Dr. Dominguez. The patient now complains abdominal pain which is felt like a gastric bubble in the upper part of the abdomen radiating to the both sides and also upwards. The pain is like burning sharp and cramping and because of constant nature of pain, the patient came to [facility] and was admitted for further evaluation and treatment. Patient also had ERCP recently during one of the previous admissions recently and MRCP showed stable postop changes. There is no history of fever, rigors. No headache, loss of consciousness or seizures. PAST MEDICAL HISTORY: History of DJD, history of gastritis, cholecystectomy, DJD, history of smoking. MEDICATIONS: Prior to admission include home medications are: 1. Simethicone 40 mg p.o. q.i.d. 2. Maalox 30 mL p.o. q.4h p.r.n. 3. Motrin 400 mg q.6h p.r.n. ALLERGIES: ADHESIVE, BANANA, TETANUS. FAMILY HISTORY: History of diabetes mellitus in the family. History of cancer in the family. Breast cancer, liver cancer, brain cancer, prostate cancer. SOCIAL HISTORY: History of smoking, currently. No history of alcohol intake. REVIEW OF SYSTEMS: ENT: No diminished hearing or vision. CARDIOVASCULAR: No angina. RESPIRATORY: No cough or hemoptysis. GI: As mentioned earlier. : No dysuria. NERVOUS SYSTEM: No numbness or weakness. ALLERGY/IMMUNOLOGY: No asthma. MUSCULOSKELETAL: As mentioned earlier. HEMATOLOGY/ONCOLOGY: No history of anemia. ENDOCRINE: No history of diabetes or hypothyroidism. CONSTITUTIONAL: As mentioned earlier. DERMATOLOGY: Negative. RHEUMATOLOGY: Negative. PSYCHIATRY: As mentioned earlier. PHYSICAL EXAMINATION: Alert, oriented x3. Pulse 55, blood pressure 120/77, respirations 18, temperature 98.2, pulse ox 94% on room air. HEENT: Conjunctivae normal. Oral mucosa moist. Neck is no jugular venous distention. No carotid bruit. No lymph node enlargement. CARDIOVASCULAR: S1, S2 muffled. RESPIRATORY: Breath sounds diminished in the bases. No rhonchi, no crackles. ABDOMEN: Soft. Mild diffuse tenderness in the epigastrium. No guarding. No rigidity. No mass palpable. LEGS: No edema. NERVOUS SYSTEM: Higher function as mentioned. Cranial nerves 2 through 12 grossly intact. Moves all 4 limbs. No focal motor deficit. LYMPHATICS: No lymphadenopathy in the neck, axillae, groin. SKIN: No ulcer, rash or bleeding. JOINTS: No active deforming arthropathy. LABS: WBC 14.2, hemoglobin 14.5, glucose 110. UA noted. ASSESSMENT: 1. Acute upper abdominal pain for evaluation, possible acute gastritis. 2. History of recent gastric ulcers. 3. Degenerative joint disease. 4. Cholecystectomy. 5. History of continued ongoing nicotine dependence. 6. Fatty liver and right ovarian cyst in the CT scan. RECOMMENDATIONS AND DISCUSSION: I recommend continue current management and symptomatic treatment. Otherwise see orders for recent surgical consultation. The abdominal pelvis CAT scan as had been ordered this morning which showed right ovarian cyst and fatty liver. Otherwise a 2D echo with Doppler read by Cardiology noted ejection fraction 50-60%. We will continue to monitor. Prognosis guarded. Further recommendations to follow. MMODL / IJN: [id number] /
[2018-04-10] MEDS: MORPHINE SULFATE 4 MG/ML SYRINGE IVP PRN (19:34)
[2018-04-11] MEDS: HEPARIN SODIUM,PORCINE 5,000 UNIT/ML 1 ML VIAL SQ SCH ×2 (00:24→09:07)
[2018-04-11] MEDS: MORPHINE SULFATE 4 MG/ML SYRINGE IVP PRN ×3 (00:24→09:42)
[2018-04-11] MEDS: SODIUM CHLORIDE 0.9% 1,000 ML IV SCH (00:25)
[2018-04-11] MEDS: ONDANSETRON 4 MG/2 ML VIAL IVP PRN (05:26)
[2018-04-11 07:27] VITALS: BP 108/68; PULSE 61; RESP 16; TEMP 97.6
[2018-04-11 07:49] LABS: ALT 23 U/L (9-52); AST 30 U/L (14-36); Albumin 2.9 g/dL (3.5-5.0); Alkaline Phosphatase 92 U/L (38-126); Anion Gap 3 mmol/L; Blood Urea Nitrogen 6 mg/dL (7-17); Calcium 8.9 mg/dL (8.4-10.2); Carbon Dioxide 23 mmol/L (22-30); Chloride 112 mmol/L (98-107); Glucose 96 mg/dL (74-99); Potassium 3.8 mmol/L (3.5-5.1); Sodium 138 mmol/L (137-145); Total Bilirubin 0.3 mg/dL (0.2-1.3); Total Protein 5.5 g/dL (6.3-8.2)
[2018-04-11 07:50] LABS: Basophils % (A) 0 %; Eosinophils # (A) 0.1 k/uL (0-0.7); Eosinophils % (A) 1 %; HCT 35.6 % (34.0-46.0); HGB 11.6 gm/dL (11.4-16.0); Lymphocytes % (A) 23 %; MCH 30.9 pg (25.0-35.0); MCHC 32.7 g/dL (31.0-37.0); MCV 94.5 fL (80.0-100.0); Mean Platelet Volume 8.4; Monocytes # (A) 0.3 k/uL (0-1.0); Monocytes % (A) 3 %; Neutrophils # (A) 6.1 k/uL (1.3-7.7); Neutrophils % (A) 72 %; Platelet Count 162 k/uL (150-450); RBC 3.77 m/uL (3.80-5.40); RDW 13.8 % (11.5-15.5); WBC 8.4 k/uL (3.8-10.6)
[2018-04-11] MEDS: SUCRALFATE 1 GM TAB PO SCH ×2 (09:07→14:13)
[2018-04-11] MEDS: PANTOPRAZOLE 40 MG/10 ML VIAL IVP SCH (09:07)
--- NOTE | 2018-04-11 10:22 | P.PN ---
Subjective Progress Note Date: 04/11/18 Principal diagnosis: Abdominal pain Patient still having upper abdominal pain. Some nausea and vomiting last night. Appetite diminished. CAT scan reportedly normal. White blood cell count normal. She is afebrile. Objective - Vital Signs Vital signs: Vital Signs Temp 97.6 F 04/11/18 07:00 Pulse 61 04/11/18 07:00 Resp 16 04/11/18 07:00 BP 108/68 04/11/18 07:00 Pulse Ox 95 04/11/18 07:00 Intake & Output 04/10/18 04/11/18 04/11/18 18:59 06:59 18:59 Intake Total 1258 1850 Output Total 200 15 Balance 1058 1835 Intake: IV 1258 1070 Sodium Chloride 0.9% 1, 1258 1070 000 ml @ 125 mls/hr IV . Q8H [facility] Rx#:[id number] Oral 780 Output: Emesis 200 15 Other: Voiding Method Toilet Toilet # Voids 1 # Bowel Movements 0 # Emeses 1 - Exam Abdomen: Soft, mild epigastric tenderness - Labs CBC & Chem 7: 04/11/18 07:20 04/11/18 07:20 Labs: Abnormal Lab Results - Last 24 Hours (Table) 04/10/18 04/10/18 04/11/18 Range/Units 09:08 15:50 07:20 RBC 3.77 L (3.80-5.40) m/uL Chloride (98-107) mmol/L BUN (7-17) mg/dL Total Creatine Kinase <20 L (30-135) U/L Total Protein (6.3-8.2) g/dL Albumin (3.5-5.0) g/dL Urine Appearance Cloudy H (Clear) Ur Specific [place] >1.050 H (1.001-1.035) Urine Protein 1+ H (Negative) Urine Ketones Trace H (Negative) Urine Blood Large H (Negative) Ur Leukocyte Esterase Small H (Negative) Urine RBC >182 H (0-5) /hpf Urine WBC 68 H (0-5) /hpf Urine Mucus Occasional H (None) /hpf Urine Opiates Screen Detected H (NotDetected) U Benzodiazepines Scrn Detected H (NotDetected) 04/11/18 Range/Units 07:20 RBC (3.80-5.40) m/uL Chloride 112 H (98-107) mmol/L BUN 6 L (7-17) mg/dL Total Creatine Kinase (30-135) U/L Total Protein 5.5 L (6.3-8.2) g/dL Albumin 2.9 L (3.5-5.0) g/dL Urine Appearance (Clear) Ur Specific [place] (1.001-1.035) Urine Protein (Negative) Urine Ketones (Negative) Urine Blood (Negative) Ur Leukocyte Esterase (Negative) Urine RBC (0-5) /hpf Urine WBC (0-5) /hpf Urine Mucus (None) /hpf Urine Opiates Screen (NotDetected) U Benzodiazepines Scrn (NotDetected) Assessment and Plan (1) Abdominal pain Narrative/Plan: Increase diet. Continue antiacids. Will follow. Current Visit: Yes Status: Acute Code(s): R10.9 - UNSPECIFIED ABDOMINAL PAIN SNOMED Code(s): 60783025
[2018-04-11] MEDS ORDERED: PANTOPRAZOLE 40 MG TABLET PO SCH (17:30)
--- NOTE | 2018-04-11 20:55 | DS ---
DISCHARGE SUMMARY DATE OF SERVICE: 04/11/2018. FINAL DIAGNOSES: 1. Acute upper abdominal pain with possible acute gastritis. 2. History of recent gastric ulcers. 3. Degenerative joint disease. 4. Cholecystectomy. 5. History of continued ongoing nicotine dependence. 6. Fatty liver and right ovarian cyst on the CT scan. DISCHARGE CONDITION: The patient is being discharged in stable with a guarded prognosis. HISTORY OF PRESENT ILLNESS: This 43-year-old woman with a past medical of multiple medical problems, was admitted with significant abdominal pain. Treated symptomatically. Surgery saw the patient. The patient improved significantly. On exam, vital signs are stable. Cardiovascular, S1, S2 muffled. Abdomen soft. Nervous system, no focal deficits. DISCHARGE INSTRUCTIONS: 1. Diet cardiac. No coffee, tea, pop or milk for 1 week. 2. Activity limited. FOLLOWUP: 1. Follow up with Dr. Alice Jensen in 1 to 2 days. 2. Follow up with Dr. Dominguez in 1 week. MEDICATIONS: 1. Tylenol p.r.n. 2. Magnesium hydroxide p.r.n. 3. Protonix 40 mg p.o. b.i.d. 4. Simethicone p.r.n. 5. Carafate 1 g p.o. with meals and at bedtime. MMODL / IJN: [id number] /
== END 2018-04-11 15:05 | disposition home or self-care (01) ==
LOC: EC 02:59 → 3SUR 04:57
PROVIDERS: ADMIT Internal Medicine; ATTEND Internal Medicine
DX: R10.10 Upper abdominal pain, unspecified (principal); D72.829 Elevated white blood cell count, unspecified; R11.2 Nausea with vomiting, unspecified; K29.40 Chronic atrophic gastritis without bleeding; Z87.11 Personal history of peptic ulcer disease; M19.90 Unspecified osteoarthritis, unspecified site; K44.9 Diaphragmatic hernia without obstruction or gangrene; R07.89 Other chest pain; F17.210 Nicotine dependence, cigarettes, uncomplicated; N83.201 Unspecified ovarian cyst, right side; K76.0 Fatty (change of) liver, not elsewhere classified; Z68.34 Body mass index [BMI] 34.0-34.9, adult; E66.9 Obesity, unspecified; Z79.899 Other long term (current) drug therapy; Z88.7 Allergy status to serum and vaccine; Z91.048 Other nonmedicinal substance allergy status; Z91.018 Allergy to other foods; Z96.652 Presence of left artificial knee joint; Z90.49 Acquired absence of other specified parts of digestive tract; Z83.3 Family history of diabetes mellitus; Z80.0 Family history of malignant neoplasm of digestive organs; Z80.3 Family history of malignant neoplasm of breast; Z80.8 Family history of malignant neoplasm of other organs or systems; Z80.42 Family history of malignant neoplasm of prostate
CPT/HCPCS: 96376 ×2; 96372 ×3; 96375 ×2; 96361; 96374; 99285; 36415; 93005 ×2; 80053 ×2; 82150; 82550; 82553; 83605; 83690; 84484; 85025 ×2; 81001; 80306; 74018; 74177; G0378 ×2; C8929; J2270 ×2; J1200; J0500; J1644 ×2; J2765; J2405 ×2; J1170; C9113 ×2; Q9950; Q9967; 93306

== ENCOUNTER 2018-04-19 09:30 | Inpatient (IN) | payer OTHER ==
[2018-04-19] MEDS ORDERED: ONDANSETRON 4 MG/2 ML VIAL IVP STA (09:55)
[2018-04-19] MEDS ORDERED: SODIUM CHLORIDE 0.9% 1,000 ML IV STA (09:55)
[2018-04-19] MEDS ORDERED: LORazepam 2 MG/ML INJ IV STA (09:56)
[2018-04-19] MEDS ORDERED: DICYCLOMINE 10 MG/ML 2 ML AMP IM STA (09:56)
--- NOTE | 2018-04-19 10:22 | ED ---
General Adult HPI <Luis E Meehan - Last Filed: 04/19/18 13:42> - General Source: patient, EMS, RN notes reviewed Mode of arrival: EMS Limitations: no limitations <Trent Cao - Last Filed: 04/19/18 13:48> - General Chief complaint: Abdominal Pain Stated complaint: Abd Pain Time Seen by Provider: 04/19/18 09:50 - History of Present Illness Initial comments: Patient 43-year-old female presented to the emergency room today by EMS, the chief complaint of increased abdominal pain. Patient states she's had pain in the abdomen over the last several months. States she's been located in epigastric area. States she's had multiple emergency room visits. States she did follow the surgeon who did perform a upper scope. She states that she was told that there was an ulcer and gastritis. She states the Bentyl seems to help with her symptoms. She states she did have increased pain at 4 AM last night she went to [facility]. She states that they sent her home. She states she woke up at 8 AM with increased pain in the epigastric area. She states that this is the same pain but it is worse. She does admit to nausea and vomiting. Denies any other complaints. Patient denies any recent fever, chills, shortness of breath, chest pain, back pain, numbness or tingling, headaches or visual changes, or any other complaints. (Trent Cao) - Related Data Previous Rx's Medication Instructions Recorded Mag Hydrox/Al Hydrox/Simeth 30 ml PO Q4HR PRN cup 02/12/18 [Maalox] Simethicone 40 mg/0.6 ml Drops 40 mg PO QID ml 02/12/18 [Mylicon Drops] Acetaminophen Tab [Tylenol Tab] 500 mg PO Q6H PRN #30 tablet 04/11/18 Pantoprazole Sodium [Protonix] 40 mg PO BID #60 tablet. 04/11/18 Sucralfate [Carafate] 1 gm PO ACHS #120 tab 04/11/18 Allergies Allergy/AdvReac Type Severity Reaction Status Date / Time adhesive Allergy Rash/Hives Verified 04/19/18 09:42 banana Allergy Rash/Hives Verified 04/19/18 09:42 tetanus immune globulin Allergy Anaphylaxis Verified 04/19/18 09:42 Review of Systems ROS Other: All systems not noted in ROS Statement are negative. <Luis E Meehan - Last Filed: 04/19/18 13:42> ROS Other: All systems not noted in ROS Statement are negative. <Trent Cao - Last Filed: 04/19/18 13:48> ROS Statement: Those systems with pertinent positive or pertinent negative responses have been documented in the HPI. Past Medical History Past Medical History: Osteoarthritis (OA) Additional Past Medical History / Comment(s): gastritis, History of Any Multi-Drug Resistant Organisms: None Reported Past Surgical History: Cholecystectomy, Joint Replacement Additional Past Surgical History / Comment(s): TOTAL LEFT KNEE Past Anesthesia/Blood Transfusion Reactions: Previous Problems w/ Anesthesia Additional Past Anesthesia/Blood Transfusion Reaction / Comment(s): TOOK LONGER TO WAKE UP WITH KNEE SURGERY PER PATIENT Past Psychological History: No Psychological Hx Reported Smoking Status: Current every day smoker Past Alcohol Use History: None Reported Past Drug Use History: None Reported - Past Family History Mother Family Medical History: Diabetes Mellitus Additional Family Medical History / Comment(s): Patient reports history of cancer in the family including breast cancer, liver cancer, brain cancer, prostate cancer Father Family Medical History: Diabetes Mellitus Additional Family Medical History / Comment(s): heart patient <Trent Cao - Last Filed: 04/19/18 13:48> General Exam <Luis E Meehan - Last Filed: 04/19/18 13:42> Limitations: no limitations <Trent Cao - Last Filed: 04/19/18 13:48> - General Exam Comments Initial Comments: General: The patient is awake and alert. Eye: Pupils are equal, round and reactive to light. Extra-ocular movements are intact. No nystagmus. There is normal conjunctiva bilaterally. No signs of icterus. Ears, nose, mouth and throat: There are moist mucous membranes and no oral lesions. Neck: The neck is supple, there is no tenderness or JVD. Cardiovascular: There is a regular rate and rhythm. No murmur, rub or gallop is appreciated. Respiratory: Lungs are clear to auscultation, respirations are non-labored, breath sounds are equal. No wheezes, stridor, rales, or rhonchi. Gastrointestinal: Soft and palpation. Patient does have tenderness epigastric. No rebound, guarding or CVA tenderness. Musculoskeletal: Normal ROM, no tenderness. Sensation intact. Strength 5/5. Pulses equal bilaterally 2+. Neurological: A&O x 3. CN II-XII intact, There are no obvious motor or sensory deficits. Coordination appears grossly intact. Speech is normal. Skin: Skin is warm and dry and no rashes or lesions are noted. Psychiatric: Cooperative (Trent Cao) Course <Luis E Meehan - Last Filed: 04/19/18 13:42> <Trent Cao - Last Filed: 04/19/18 13:48> Vital Signs 04/19/18 04/19/18 09:33 11:16 Temperature 97.8 F Pulse Rate 70 68 Respiratory 24 18 Rate Blood Pressure 138/64 149/68 O2 Sat by Pulse 96 96 Oximetry - Reevaluation(s) Reevaluation #1: 04/19/18 13:[address] llanes, who will admit for Dr. Jensen. (Luis E Meehan) Medical Decision Making - Lab Data Result diagrams: 04/19/18 10:10 04/19/18 10:10 <Luis E Meehan - Last Filed: 04/19/18 13:42> - Lab Data Result diagrams: 04/19/18 10:10 04/19/18 10:10 <Trent Cao - Last Filed: 04/19/18 13:48> - Medical Decision Making Patient reexamined at this time shows no signs of distress. Patient's abdomen soft on palpation. Patient's blood work revealed no elevated white count. Patient does have mildly elevated liver enzymes along with alk phos and bilirubin. Ultrasound shows no acute abnormality. Patient's had previous cholecystectomy. Patient's CT of the abdomen pelvis reviewed shows 1. Mild hepatomegaly and fatty infiltration of the liver. 2. Mild cardiomegaly. 3. Compression fatty infiltration of the descending colon and sacralization of the distal ileum suggesting fecal stasis is suspicious for inflammatory bowel disease. Patient's labs been reviewed. Patient updated. Patient will be admitted to the hospital. Case was discussed with attending physician Dr. Meehan to discuss case with admitting physician Dr. Rush. Patient will be admitted with consult to GI. Family and patient are requesting a consult to surgeon Dr. mayen who wanted the patient's family members has seen. They state that they would rather see Dr. mayen instead of Dr. Dominguez who they have seen in the past. (Trent Cao) - Lab Data Lab Results 04/19/18 04/19/18 04/19/18 Range/Units 10:10 10:10 10:10 WBC 10.3 (3.8-10.6) k/uL RBC 4.26 (3.80-5.40) m/uL Hgb 13.3 (11.4-16.0) gm/dL Hct 38.5 (34.0-46.0) % MCV 90.3 (80.0-100.0) fL MCH 31.2 (25.0-35.0) pg MCHC 34.6 (31.0-37.0) g/dL RDW 14.0 (11.5-15.5) % Plt Count 215 (150-450) k/uL Neutrophils % 85 % Lymphocytes % 11 % Monocytes % 2 % Eosinophils % 1 % Basophils % 0 % Neutrophils # 8.8 H (1.3-7.7) k/uL Lymphocytes # 1.1 (1.0-4.8) k/uL Monocytes # 0.2 (0-1.0) k/uL Eosinophils # 0.1 (0-0.7) k/uL Basophils # 0.0 (0-0.2) k/uL PT (9.0-12.0) sec INR (<1.2) APTT (22.0-30.0) sec Sodium 141 (137-145) mmol/L Potassium 3.8 (3.5-5.1) mmol/L Chloride 112 H (98-107) mmol/L Carbon Dioxide 21 L (22-30) mmol/L Anion Gap 8 mmol/L BUN 8 (7-17) mg/dL Creatinine 0.61 (0.52-1.04) mg/dL Est GFR (CKD-EPI)AfAm >90 (>60 ml/min/1.73 sqM) Est GFR (CKD-EPI)NonAf >90 (>60 ml/min/1.73 sqM) Glucose 113 H (74-99) mg/dL Plasma Lactic Acid Josef (0.7-2.0) mmol/L Calcium 10.0 (8.4-10.2) mg/dL Total Bilirubin 1.9 H (0.2-1.3) mg/dL AST 390 H (14-36) U/L ALT 83 H (9-52) U/L Alkaline Phosphatase 261 H (38-126) U/L Total Creatine Kinase 63 (30-135) U/L CK-MB (CK-2) 0.6 (0.0-2.4) ng/mL CK-MB (CK-2) Rel Index 1.0 Troponin I <0.012 (0.000-0.034) ng/mL Total Protein 6.7 (6.3-8.2) g/dL Albumin 3.7 (3.5-5.0) g/dL Amylase <30 L (30-110) U/L Lipase 27 (23-300) U/L Urine Color Urine Appearance (Clear) Urine pH (5.0-8.0) Ur Specific Cyp[place] (1.001-1.035) Urine Protein (Negative) Urine Glucose (UA) (Negative) Urine Ketones (Negative) Urine Blood (Negative) Urine Nitrite (Negative) Urine Bilirubin (Negative) Urine Urobilinogen (<2.0) mg/dL Ur Leukocyte Esterase (Negative) Urine HCG, Qual (Not Detectd) 04/19/18 04/19/18 04/19/18 Range/Units 10:10 10:10 11:04 WBC (3.8-10.6) k/uL RBC (3.80-5.40) m/uL Hgb (11.4-16.0) gm/dL Hct (34.0-46.0) % MCV (80.0-100.0) fL MCH (25.0-35.0) pg MCHC (31.0-37.0) g/dL RDW (11.5-15.5) % Plt Count (150-450) k/uL Neutrophils % % Lymphocytes % % Monocytes % % Eosinophils % % Basophils % % Neutrophils # (1.3-7.7) k/uL Lymphocytes # (1.0-4.8) k/uL Monocytes # (0-1.0) k/uL Eosinophils # (0-0.7) k/uL Basophils # (0-0.2) k/uL PT 10.1 (9.0-12.0) sec INR 1.0 (<1.2) APTT 23.2 (22.0-30.0) sec Sodium (137-145) mmol/L Potassium (3.5-5.1) mmol/L Chloride (98-107) mmol/L Carbon Dioxide (22-30) mmol/L Anion Gap mmol/L BUN (7-17) mg/dL Creatinine (0.52-1.04) mg/dL Est GFR (CKD-EPI)AfAm (>60 ml/min/1.73 sqM) Est GFR (CKD-EPI)NonAf (>60 ml/min/1.73 sqM) Glucose (74-99) mg/dL Plasma Lactic Acid Josef 1.5 (0.7-2.0) mmol/L Calcium (8.4-10.2) mg/dL Total Bilirubin (0.2-1.3) mg/dL AST (14-36) U/L ALT (9-52) U/L Alkaline Phosphatase (38-126) U/L Total Creatine Kinase (30-135) U/L CK-MB (CK-2) (0.0-2.4) ng/mL CK-MB (CK-2) Rel Index Troponin I (0.000-0.034) ng/mL Total Protein (6.3-8.2) g/dL Albumin (3.5-5.0) g/dL Amylase (30-110) U/L Lipase (23-300) U/L Urine Color Urine Appearance (Clear) Urine pH (5.0-8.0) Ur Specific Cyp[place] (1.001-1.035) Urine Protein (Negative) Urine Glucose (UA) (Negative) Urine Ketones (Negative) Urine Blood (Negative) Urine Nitrite (Negative) Urine Bilirubin (Negative) Urine Urobilinogen (<2.0) mg/dL Ur Leukocyte Esterase (Negative) Urine HCG, Qual Not Detected (Not Detectd) 04/19/18 Range/Units 11:04 WBC (3.8-10.6) k/uL RBC (3.80-5.40) m/uL Hgb (11.4-16.0) gm/dL Hct (34.0-46.0) % MCV (80.0-100.0) fL MCH (25.0-35.0) pg MCHC (31.0-37.0) g/dL RDW (11.5-15.5) % Plt Count (150-450) k/uL Neutrophils % % Lymphocytes % % Monocytes % % Eosinophils % % Basophils % % Neutrophils # (1.3-7.7) k/uL Lymphocytes # (1.0-4.8) k/uL Monocytes # (0-1.0) k/uL Eosinophils # (0-0.7) k/uL Basophils # (0-0.2) k/uL PT (9.0-12.0) sec INR (<1.2) APTT (22.0-30.0) sec Sodium (137-145) mmol/L Potassium (3.5-5.1) mmol/L Chloride (98-107) mmol/L Carbon Dioxide (22-30) mmol/L Anion Gap mmol/L BUN (7-17) mg/dL Creatinine (0.52-1.04) mg/dL Est GFR (CKD-EPI)AfAm (>60 ml/min/1.73 sqM) Est GFR (CKD-EPI)NonAf (>60 ml/min/1.73 sqM) Glucose (74-99) mg/dL Plasma Lactic Acid Josef (0.7-2.0) mmol/L Calcium (8.4-10.2) mg/dL Total Bilirubin (0.2-1.3) mg/dL AST (14-36) U/L ALT (9-52) U/L Alkaline Phosphatase (38-126) U/L Total Creatine Kinase (30-135) U/L CK-MB (CK-2) (0.0-2.4) ng/mL CK-MB (CK-2) Rel Index Troponin I (0.000-0.034) ng/mL Total Protein (6.3-8.2) g/dL Albumin (3.5-5.0) g/dL Amylase (30-110) U/L Lipase (23-300) U/L Urine Color Yellow Urine Appearance Clear (Clear) Urine pH 7.0 (5.0-8.0) Ur Specific [place] 1.012 (1.001-1.035) Urine Protein Negative (Negative) Urine Glucose (UA) Negative (Negative) Urine Ketones Negative (Negative) Urine Blood Negative (Negative) Urine Nitrite Negative (Negative) Urine Bilirubin Negative (Negative) Urine Urobilinogen <2.0 (<2.0) mg/dL Ur Leukocyte Esterase Negative (Negative) Urine HCG, Qual (Not Detectd) Disposition <Luis E Meehan - Last Filed: 04/19/18 13:42> Is patient prescribed a controlled substance at d/c from ED?: No Time of Disposition: 13:48 <Trent Cao - Last Filed: 04/19/18 13:48> Clinical Impression: Abdominal pain, Elevated liver enzymes Disposition: ADMITTED IP TO THIS HOSP Condition: Stable Referrals: Sanam Jensen MD [Primary Care Provider] - 1-2 days
[2018-04-19 10:35] LABS: Partial Thromboplastin Time 23.2 sec (22.0-30.0); Prothrombin Time 10.1 sec (9.0-12.0)
[2018-04-19 10:37] LABS: Basophils % (A) 0 %; Eosinophils # (A) 0.1 k/uL (0-0.7); Eosinophils % (A) 1 %; HCT 38.5 % (34.0-46.0); HGB 13.3 gm/dL (11.4-16.0); Lymphocytes # (A) 1.1 k/uL (1.0-4.8); Lymphocytes % (A) 11 %; MCH 31.2 pg (25.0-35.0); MCHC 34.6 g/dL (31.0-37.0); MCV 90.3 fL (80.0-100.0); Mean Platelet Volume 7.5; Monocytes # (A) 0.2 k/uL (0-1.0); Monocytes % (A) 2 %; Neutrophils # (A) 8.8 k/uL (1.3-7.7); Neutrophils % (A) 85 %; Platelet Count 215 k/uL (150-450); RBC 4.26 m/uL (3.80-5.40); WBC 10.3 k/uL (3.8-10.6)
--- NOTE | 2018-04-19 10:38 | XR ---
EXAMINATION TYPE: XR chest 2V DATE OF EXAM: 04/19/2018 HISTORY: abdominal pain. REFERENCE: Previous study dated 10/24/2011. FINDINGS: The lungs are clear. Pleural spaces are clear. Heart size is upper limits of normal. IMPRESSION: BORDERLINE CARDIOMEGALY.
[2018-04-19 10:45] LABS: ALT 83 U/L (9-52); AST 390 U/L (14-36); Albumin 3.7 g/dL (3.5-5.0); Alkaline Phosphatase 261 U/L (38-126); Amylase <30 U/L (30-110); Anion Gap 8 mmol/L; Blood Urea Nitrogen 8 mg/dL (7-17); Carbon Dioxide 21 mmol/L (22-30); Chloride 112 mmol/L (98-107); Glucose 113 mg/dL (74-99); Lipase 27 U/L (23-300); Potassium 3.8 mmol/L (3.5-5.1); Sodium 141 mmol/L (137-145); Total Bilirubin 1.9 mg/dL (0.2-1.3); Total Protein 6.7 g/dL (6.3-8.2)
[2018-04-19 10:53] LABS: Creatine Kinase 63 U/L (30-135)
[2018-04-19 11:05] LABS: Troponin I <0.012 ng/mL (0.000-0.034)
[2018-04-19 11:07] LABS: Creatine Kinase MB 0.6 ng/mL (0.0-2.4)
[2018-04-19] MEDS ORDERED: HYDROmorphone 1 MG/ML 1 ML SYRINGE IVP STA (11:07)
[2018-04-19 11:13] LABS: Appearance,Urine Clear (Clear); Bilirubin,Urine Negative (Negative); Blood,Urine Negative (Negative); Color,Urine Yellow; Glucose,Urine (UA) Negative (Negative); Ketones,Urine Negative (Negative); Leukocyte Esterase,Urine Negative (Negative); Nitrite,Urine Negative (Negative); Protein,Urine Negative (Negative); Specific Gravity,Urine 1.012 (1.001-1.035); Urobilinogen,Urine <2.0 mg/dL (<2.0)
--- NOTE | 2018-04-19 12:38 | US ---
EXAMINATION TYPE: US abdomen limited DATE OF EXAM: 04/19/2018 COMPARISON: CT 2018 CLINICAL HISTORY: Pain. Intermittent abdomen pain and N/V x 2 months, history of cholecystectomy, exa m done portable in ER. EXAM MEASUREMENTS: Liver Length: 17.4 cm Gallbladder Wall: surgically absent CBD: 1.1 cm Right Kidney: 9.7 x 5.3 x 4.9 cm Pancreas: visualized portions wnl, limited by overlying midline bowel gas Liver: mildly heterogeneous, measures in upper limits of normal Gallbladder: surgically absent Evidence for sonographic Robert's sign: no CBD: dilated at 1.1cm Right Kidney: no hydronephrosis or masses seen Limited views of the pancreas are unremarkable. The liver is normal in size without evidence of biliary dilatation. The gallbladder is been removed. Distal common hepatic duct measures 1.1 cm. The right kidney is unremarkable. IMPRESSION: STATUS POST CHOLECYSTECTOMY.
--- NOTE | 2018-04-19 13:34 | CT ---
EXAMINATION TYPE: CT abdomen pelvis w con DATE OF EXAM: 04/19/2018 REFERENCE: Previous study dated 04/02/2018 HISTORY: Pain HISTORY: Epigastric pain REFERENCE: NONE CT DLP: 1297.9 mGy Automated exposure control for dose reduction was used. TECHNIQUE: Helical acquisition through the abdomen and pelvis was obtained following the oral ingesti on of without Oral Contrast and following intravenous administration of 100 mL of Isovue 300. The dorene a was reformatted in axial, coronal and sagittal projections. FINDINGS: There is minimal atelectatic change in the dependent portions of the lungs. There is no pl eural or pericardial fluid. The heart is mildly prominent. Within the abdomen, the gallbladder is been removed. The liver is mildly prominent measuring 18 cm. I t is mildly fatty infiltrated. Both adrenal glands are normal. Both kidneys demonstrate function and appear morphologically normal. The pancreas is unremarkable. There is no significant retroperitoneal, iliac or inguinal adenopathy. There is an IUCD within the uterus. Uterus and ovaries are normal. The bladder is unremarkable. There is no significant diverticular change and there is no radiographic evidence of diverticulitis. The appendix is normal. There is some fatty infiltration of the descending colon and cecum lies aerat ion of the terminal ileum. This suggests stasis. Fatty infiltration can be seen in inflammatory bowel disease. The remainder the small bowel is unremarkable. There is no free fluid and no free air identified. No bony lesion is seen. IMPRESSION: 1. MILD HEPATOMEGALY AND FATTY INFILTRATION OF THE LIVER. 2. MILD CARDIOMEGALY. 3. THE COMBINATION OF FATTY INFILTRATION OF THE DESCENDING COLON AND SACRALIZATION OF THE DISTAL ILEU M SUGGESTING FECAL STASIS IS SUSPICIOUS FOR INFLAMMATORY BOWEL DISEASE. PLEASE CORRELATE CLINICALLY.
[2018-04-19] MEDS ORDERED: SODIUM CHLORIDE 0.9% 1,000 ML IV ONE (13:59)
[2018-04-19] MEDS ORDERED: NALOXONE 0.4 MG/ML 1 ML VIAL IV PRN (13:59)
[2018-04-19] MEDS ORDERED: LORazepam 2 MG/ML INJ IV PRN (13:59)
[2018-04-19 15:37] VITALS: BMI 35.3
[2018-04-19] MEDS: MORPHINE SULFATE 4 MG/ML SYRINGE IV PRN (21:29)
[2018-04-20] MEDS: MORPHINE SULFATE 4 MG/ML SYRINGE IV PRN ×4 (05:52→21:47)
[2018-04-20 08:37] LABS: Basophils % (A) 0 %; Eosinophils # (A) 0.1 k/uL (0-0.7); Eosinophils % (A) 1 %; HCT 36.9 % (34.0-46.0); HGB 12.1 gm/dL (11.4-16.0); Hypochromasia Slight; Lymphocytes # (A) 1.5 k/uL (1.0-4.8); Lymphocytes % (A) 25 %; MCHC 32.8 g/dL (31.0-37.0); MCV 94.7 fL (80.0-100.0); Mean Platelet Volume 8.1; Monocytes # (A) 0.2 k/uL (0-1.0); Monocytes % (A) 4 %; Neutrophils # (A) 4.2 k/uL (1.3-7.7); Neutrophils % (A) 69 %; Platelet Count 184 k/uL (150-450); RBC 3.89 m/uL (3.80-5.40); WBC 6.1 k/uL (3.8-10.6)
[2018-04-20 08:56] LABS: ALT 191 U/L (9-52); AST 553 U/L (14-36); Alkaline Phosphatase 282 U/L (38-126); Anion Gap 3 mmol/L; Blood Urea Nitrogen 5 mg/dL (7-17); Calcium 9.1 mg/dL (8.4-10.2); Carbon Dioxide 24 mmol/L (22-30); Chloride 113 mmol/L (98-107); Glucose 84 mg/dL (74-99); Potassium 3.8 mmol/L (3.5-5.1); Sodium 140 mmol/L (137-145); Total Bilirubin 3.1 mg/dL (0.2-1.3); Total Protein 5.7 g/dL (6.3-8.2)
[2018-04-20] MEDS: ONDANSETRON 4 MG/2 ML VIAL IVP PRN (10:12)
--- NOTE | 2018-04-20 11:09 | P.GSCN ---
History of Present Illness Consult date: 04/20/18 History of present illness: This is a 43-year-old female presents with a chief complaint of midepigastric abdominal pain this is been going on since February. She is a history of cholecystectomy. She also has had a significant workup done in the last several months including multiple CTs and MRCP and upper and lower endoscopy. She did have some gastritis seen on upper endoscopy. This is being treated with PPI. She states that the pain got worse over the last couple days she's had some nausea and vomiting bilious emesis. No blood in her vomit. She is having normal bowel movements no blood in her bowel movements. She denies any history of hepatitis. She has no other complaints Past Medical History Past Medical History: Osteoarthritis (OA) Additional Past Medical History / Comment(s): gastritis, History of Any Multi-Drug Resistant Organisms: None Reported Past Surgical History: Cholecystectomy, Joint Replacement Additional Past Surgical History / Comment(s): TOTAL LEFT KNEE Past Anesthesia/Blood Transfusion Reactions: Previous Problems w/ Anesthesia Additional Past Anesthesia/Blood Transfusion Reaction / Comm: TOOK LONGER TO WAKE UP WITH KNEE SURGERY PER PATIENT Past Psychological History: No Psychological Hx Reported Smoking Status: Current every day smoker Past Alcohol Use History: None Reported Additional Past Alcohol Use History / Comment(s): STARTED SMOKING AT AGE 14 SMOKES 6 CIG A DAY Past Drug Use History: None Reported - Past Family History Mother Family Medical History: Diabetes Mellitus Additional Family Medical History / Comment(s): Patient reports history of cancer in the family including breast cancer, liver cancer, brain cancer, prostate cancer Father Family Medical History: Diabetes Mellitus Additional Family Medical History / Comment(s): heart patient Medications and Allergies Home Medications Medication Instructions Recorded Confirmed Type Mag Hydrox/Al Hydrox/Simeth 30 ml PO Q4HR PRN cup 02/12/18 04/19/18 Rx [Maalox] Simethicone 40 mg/0.6 ml Drops 40 mg PO QID ml 02/12/18 04/19/18 Rx [Mylicon Drops] Acetaminophen Tab [Tylenol Tab] 500 mg PO Q6H PRN #30 tablet 04/11/18 04/19/18 Rx Pantoprazole Sodium [Protonix] 40 mg PO BID #60 tablet. 04/11/18 04/19/18 Rx Sucralfate [Carafate] 1 gm PO ACHS #120 tab 04/11/18 04/19/18 Rx Dicyclomine HCl 10 mg PO QID 04/19/18 04/19/18 History Allergies Allergy/AdvReac Type Severity Reaction Status Date / Time adhesive Allergy Severe Rash/Hives Verified 04/19/18 16:06 tetanus immune globulin Allergy Severe Anaphylaxis Verified 04/19/18 16:06 banana Allergy Mild Rash/Hives Verified 04/19/18 16:06 Surgical - Exam Osteopathic Statement: *. No significant issues noted on an osteopathic structural exam other than those noted in the History and Physical/Consult. Vital Signs Temp Pulse Resp BP Pulse Ox 97.8 F 70 24 138/64 96 04/19/18 09:33 04/19/18 09:33 04/19/18 09:33 04/19/18 09:33 04/19/18 09:33 - General well developed, well nourished, no distress, obese - Eyes PERRL - Neck no masses - Respiratory normal expansion, normal respiratory effort - Cardiovascular Rhythm: regular - Abdomen S/ND/mild TTP mid epigastric - Neurologic normal coordination, normal sensation - Musculoskeletal normal gait - Psychiatric oriented to time, oriented to person, oriented to place Results - Labs 04/20/18 08:14 04/20/18 08:14 Abnormal Lab Results - Last 24 Hours (Table) 04/20/18 Range/Units 08:14 Chloride 113 H (98-107) mmol/L BUN 5 L (7-17) mg/dL Total Bilirubin 3.1 H (0.2-1.3) mg/dL AST 553 H (14-36) U/L ALT 191 H (9-52) U/L Alkaline Phosphatase 282 H (38-126) U/L Total Protein 5.7 L (6.3-8.2) g/dL Albumin 3.0 L (3.5-5.0) g/dL Diabetes panel 04/20/18 Range/Units 08:14 Sodium 140 (137-145) mmol/L Potassium 3.8 (3.5-5.1) mmol/L Chloride 113 H (98-107) mmol/L Carbon Dioxide 24 (22-30) mmol/L BUN 5 L (7-17) mg/dL Creatinine 0.65 (0.52-1.04) mg/dL Glucose 84 (74-99) mg/dL Calcium 9.1 (8.4-10.2) mg/dL AST 553 H (14-36) U/L ALT 191 H (9-52) U/L Alkaline Phosphatase 282 H (38-126) U/L Total Protein 5.7 L (6.3-8.2) g/dL Albumin 3.0 L (3.5-5.0) g/dL Calcium panel 04/20/18 Range/Units 08:14 Calcium 9.1 (8.4-10.2) mg/dL Albumin 3.0 L (3.5-5.0) g/dL Pituitary panel 04/20/18 Range/Units 08:14 Sodium 140 (137-145) mmol/L Potassium 3.8 (3.5-5.1) mmol/L Chloride 113 H (98-107) mmol/L Carbon Dioxide 24 (22-30) mmol/L BUN 5 L (7-17) mg/dL Creatinine 0.65 (0.52-1.04) mg/dL Glucose 84 (74-99) mg/dL Calcium 9.1 (8.4-10.2) mg/dL Adrenal panel 04/20/18 Range/Units 08:14 Sodium 140 (137-145) mmol/L Potassium 3.8 (3.5-5.1) mmol/L Chloride 113 H (98-107) mmol/L Carbon Dioxide 24 (22-30) mmol/L BUN 5 L (7-17) mg/dL Creatinine 0.65 (0.52-1.04) mg/dL Glucose 84 (74-99) mg/dL Calcium 9.1 (8.4-10.2) mg/dL Total Bilirubin 3.1 H (0.2-1.3) mg/dL AST 553 H (14-36) U/L ALT 191 H (9-52) U/L Alkaline Phosphatase 282 H (38-126) U/L Total Protein 5.7 L (6.3-8.2) g/dL Albumin 3.0 L (3.5-5.0) g/dL Assessment and Plan Assessment: Hyperbilirubinemia, elevated LFTs, epigastric abdominal pain Plan: Patient recently had an MRCP which did not show filling defect in the biliary tree. There were also no pancreatic masses seen. I do not see an indication for any acute surgical intervention at this time. Check hepatitis panel, start IV Protonix, patient may have a clear liquid diet from a surgical standpoint as tolerated. Follow-up GI recommendations
[2018-04-20 11:36] LABS: Bilirubin, Conjugated 1.1 mg/dL (0.0-0.3); Bilirubin, Delta 1.1 mg/dL (0.0-0.2); Bilirubin,Unconjugated 0.7 mg/dL (0.0-1.1); Total Bilirubin 2.9 mg/dL (0.2-1.3)
[2018-04-20] MEDS: PANTOPRAZOLE 40 MG/10 ML VIAL IVP SCH (11:37)
[2018-04-20] MEDS ORDERED: MAG HYDROX/AL HYDROX/SIMETH 30 ML CUP PO PRN (12:19)
--- NOTE | 2018-04-20 14:07 | P.HPIM ---
History of Present Illness 43-year-old present female came in with the severe epigastric abdominal burning sensation pain sharp pain. This is with some nausea. Patient is recent upper GI endoscopy which showed gastritis for which patient is on simethicone along with proton pump inhibitor. Patient is found to have elevated liver enzymes patient had cholecystectomy in the past ultrasound did not show any common biliary ductal A patient's computed tomography scan of the abdomen was obtained which showed incidental finding of some inflammation in the distal colon. Patient does not have any history of ulcerative colitis. Patient is on proton pump inhibitor here and the gastroneurology will evaluate the patient for possibility of ERCP considering her total bili and direct bilirubin elevation. Patient does have elevated liver enzymes liver enzymes will be repeated tomorrow hepatitis panel was ordered. Review of Systems REVIEW OF SYSTEMS: CONSTITUTIONAL: No fever, no malaise, no fatigue. HEENT: No recent visual problems or hearing problems. Denied any sore throat. CARDIOVASCULAR: No chest pain, orthopnea, PND, no palpitations, no syncope. PULMONARY: No shortness of breath, no cough, no hemoptysis. GASTROINTESTINAL: No diarrhea. NEUROLOGICAL: No headaches, no weakness, no numbness. HEMATOLOGICAL: Denies any bleeding or petechiae. GENITOURINARY: Denies any burning micturition, frequency, or urgency. MUSCULOSKELETAL/RHEUMATOLOGICAL: Denies any joint pain, swelling, or any muscle pain. ENDOCRINE: Denies any polyuria or polydipsia. The rest of the 14-point review of systems is negative. Past Medical History Past Medical History: Osteoarthritis (OA) Additional Past Medical History / Comment(s): gastritis, History of Any Multi-Drug Resistant Organisms: None Reported Past Surgical History: Cholecystectomy, Joint Replacement Additional Past Surgical History / Comment(s): TOTAL LEFT KNEE Past Anesthesia/Blood Transfusion Reactions: Previous Problems w/ Anesthesia Additional Past Anesthesia/Blood Transfusion Reaction / Comment(s): TOOK LONGER TO WAKE UP WITH KNEE SURGERY PER PATIENT Past Psychological History: No Psychological Hx Reported Smoking Status: Current every day smoker Past Alcohol Use History: None Reported Additional Past Alcohol Use History / Comment(s): STARTED SMOKING AT AGE 14 SMOKES 6 CIG A DAY Past Drug Use History: None Reported - Past Family History Mother Family Medical History: Diabetes Mellitus Additional Family Medical History / Comment(s): Patient reports history of cancer in the family including breast cancer, liver cancer, brain cancer, prostate cancer Father Family Medical History: Diabetes Mellitus Additional Family Medical History / Comment(s): heart patient Medications and Allergies Home Medications Medication Instructions Recorded Confirmed Type Mag Hydrox/Al Hydrox/Simeth 30 ml PO Q4HR PRN cup 02/12/18 04/19/18 Rx [Maalox] Simethicone 40 mg/0.6 ml Drops 40 mg PO QID ml 02/12/18 04/19/18 Rx [Mylicon Drops] Acetaminophen Tab [Tylenol Tab] 500 mg PO Q6H PRN #30 tablet 04/11/18 04/19/18 Rx Pantoprazole Sodium [Protonix] 40 mg PO BID #60 tablet. 04/11/18 04/19/18 Rx Sucralfate [Carafate] 1 gm PO ACHS #120 tab 04/11/18 04/19/18 Rx Dicyclomine HCl 10 mg PO QID 04/19/18 04/19/18 History Allergies Allergy/AdvReac Type Severity Reaction Status Date / Time adhesive Allergy Severe Rash/Hives Verified 04/19/18 16:06 tetanus immune globulin Allergy Severe Anaphylaxis Verified 04/19/18 16:06 banana Allergy Mild Rash/Hives Verified 04/19/18 16:06 Physical Exam Vitals: Vital Signs Temp Pulse Resp BP Pulse Ox 04/20/18 12:51 97.3 F L 51 L 16 131/73 97 04/20/18 09:04 97.7 F 52 L 16 148/86 97 04/19/18 23:00 98.1 F 74 18 104/56 94 L 04/19/18 15:30 50 L 04/19/18 14:55 97.6 F 50 L 16 97/61 96 Intake and Output 04/19/18 04/20/18 04/20/18 22:59 06:59 14:59 Intake Total 240 0 Output Total 100 Balance 240 0 -100 Intake: Oral 240 0 Output: Urine 100 Other: Voiding Method Toilet # Voids 1 PHYSICAL EXAMINATION: GENERAL: The patient is alert and oriented x3, not in any acute distress. Well developed, well nourished. HEENT: Pupils are round and equally reacting to light. EOMI. No scleral icterus. No conjunctival pallor. Normocephalic, atraumatic. No pharyngeal erythema. No thyromegaly. CARDIOVASCULAR: S1 and S2 present. No murmurs, rubs, or gallops. PULMONARY: Chest is clear to auscultation, no wheezing or crackles. ABDOMEN: Soft, nontender, nondistended, normoactive bowel sounds. No palpable organomegaly. MUSCULOSKELETAL: No joint swelling or deformity. EXTREMITIES: No cyanosis, clubbing, or pedal edema. NEUROLOGICAL: Gross neurological examination did not reveal any focal deficits. SKIN: No rashes. Results CBC & Chem 7: 04/20/18 08:14 04/20/18 08:14 Labs: Abnormal Lab Results - Last 24 Hours (Table) 04/20/18 04/20/18 Range/Units 08:14 08:14 Chloride 113 H (98-107) mmol/L BUN 5 L (7-17) mg/dL Total Bilirubin 3.1 H 2.9 H (0.2-1.3) mg/dL Conjugated Bilirubin 1.1 H (0.0-0.3) mg/dL Delta Bilirubin 1.1 H (0.0-0.2) mg/dL AST 553 H (14-36) U/L ALT 191 H (9-52) U/L Alkaline Phosphatase 282 H (38-126) U/L Total Protein 5.7 L (6.3-8.2) g/dL Albumin 3.0 L (3.5-5.0) g/dL Thrombosis Risk Factor Assmnt - Choose All That Apply Any of the Below Risk Factors Present?: Yes Each Factor Represents 1 point: Age 41-60 years, Obesity (BMI >25) Other Risk Factors: No Other congenital or acquired thrombophilia - If yes, enter type in comment: No Thrombosis Risk Factor Assessment Total Risk Factor Score: 2 Thrombosis Risk Factor Assessment Level: Low Risk Assessment and Plan Plan: -Epigastric abdominal pain: Secondary to gastritis again, patient will be started on proton pump inhibitor and simethicone at pain is better now. -Elevated liver enzymes and indirect bilirubinemia patient will need an ERCP which is scheduled for tomorrow. Hepatitis panel was ordered -Fatty liver -Division to joint disease
--- NOTE | 2018-04-20 14:29 | CONS ---
CONSULTATION DATE OF DICTATION: 04/20/2018. REASON FOR CONSULTATION: Severe epigastric pain and elevated LFTs. HISTORY OF PRESENT ILLNESS: The patient is a 43-year-old pleasant white female, known to me from her previous multiple hospitalizations. She had been having intermittent episodes of severe epigastric pain that started in December of this year. She had been in the hospital 6 times. She had two upper endoscopies, a colonoscopy, multiple CAT scans, all of which were negative. She also had an MRCP done in February that was unremarkable. She is status post gallbladder surgery 10 years ago, for symptomatic gallstones. Yesterday, she started having severe epigastric pain that was much worse, associated with nausea, vomiting, and came to the emergency room and this time she was noted to have elevated liver enzymes with ALT and AST in the in 200s and bilirubin up to 2.9,. hence we are consulted for further evaluation. She did have ultrasound of the right upper quadrant that was negative. CT of the abdomen was also negative but there was evidence of biliary ductal dilation with CBD measuring 1.1 cm in diameter. PAST MEDICAL HISTORY: Degenerative joint disease. PAST SURGICAL HISTORY: Cholecystectomy 10 years ago and total left knee. MEDICATIONS: At home include Maalox, Mylicon, Carafate, Protonix, dicyclomine. FAMILY HISTORY: Father has diabetes mellitus. SOCIAL HISTORY: No smoking or alcohol use. REVIEW OF SYSTEMS: CARDIOPULMONARY: No chest pain, shortness of breath. GENITOURINARY: No dysuria, hematuria. MUSCULOSKELETAL: Unremarkable. SKIN: Unremarkable. ENDOCRINE: Unremarkable. PSYCHIATRIC: Unremarkable. NEUROLOGY: Unremarkable. ENT: Vision unremarkable. CONSTITUTIONAL: No recent weight loss. No fever, chills, night sweats. PHYSICAL EXAMINATION: Blood pressure is 97/61, pulse rate 50, temperature 97.6. HEENT examination unremarkable. Conjunctivae are pink, sclerae nonicteric. Oral cavity no lesions. Neck, no JVD or lymph node enlargement. Chest was clear to auscultation. HEART: Regular rate and rhythm. Abdomen is soft. Bowel sounds are positive. No organomegaly. EXTREMITIES: No pedal edema. SKIN: No rashes. NEUROLOGIC: Alert and oriented x3. No focal deficits. LABS: Yesterday, WBC 10.3, hemoglobin 13.3, platelets are normal. Basic metabolic panel was normal. AST 390, ALT 83, T bilirubin was 1.9 and alkaline phosphatase 261. Today T bilirubin is up to 2.9. AST and ALT are 553 and 191 respectively and alkaline phosphatase 282. Amylase and lipase are normal. IMPRESSION: This lady is a young lady who had been to the hospital multiple times with intermittent episodes of severe epigastric pain for the last 3 months duration. She had ultrasounds, CAT scans done during her last hospitalization that were negative. Upper endoscopy done x2 in February and March were negative. She also had MRCP done in February that was unremarkable. During this hospitalization, she is noted to have elevated serum transaminases for the first time and bilirubin up to 2.9 and alk phos of 282 with ALT and AST of 500 range. This clinical picture is most consistent with possible retained common bile duct stone. RECOMMENDATIONS: Discussed in length with the patient, possibility of a common bile duct stone. She had an MRCP 2 months ago that was unremarkable, but given the clinical presentation and acute elevation of serum transaminases during this hospitalization, I will schedule her for an ERCP tomorrow. I discussed with him risks, benefits, and complications of the procedure and she is agreeable to it. Thank you for this consultation. MMODL / IJN: [id number] /
[2018-04-20] MEDS: SUCRALFATE 1 GM TAB PO SCH ×3 (15:40→21:19)
[2018-04-20] MEDS: SIMETHICONE 40 MG/0.6 ML DROPS 2,000 MG/30 ML BOTTLE PO SCH ×3 (15:40→21:50)
[2018-04-20 16:51] LABS: Hepatitis A Antibody IgM Non-Reactive (Non-Reactive); Hepatitis B Core IgM Non-Reactive (Non-Reactive)
[2018-04-20 19:52] VITALS: RESP 16
[2018-04-21] MEDS: MORPHINE SULFATE 4 MG/ML SYRINGE IV PRN ×3 (05:40→17:09)
[2018-04-21] MEDS ORDERED: LEVOFLOXACIN 500MG-D5W PMX 500 MG in DEXTROSE/WATER 1 100ML.BAG IVPB STA (06:33)
[2018-04-21] MEDS ORDERED: INDOMETHACIN 50MG SUPPOSITORY RECTAL STA (06:34)
[2018-04-21] MEDS ORDERED: MIDAZOLAM 2 MG/2 ML VIAL ONE (07:00)
[2018-04-21] MEDS ORDERED: fentaNYL (PF) 50 MCG/ML 2 ML AMP ONE (07:00)
[2018-04-21] MEDS ORDERED: KETAMINE 10 MG/ML 20 ML VIAL ONE (07:00)
[2018-04-21] MEDS ORDERED: PROPOFOL 10 MG/ML 20 ML VIAL IV ONE (07:00)
[2018-04-21] MEDS ORDERED: GLUCAGON 1 MG/ML VIAL ONE (07:00)
[2018-04-21] MEDS ORDERED: IV FLUID CONTINUATION 400 ML IV ONE (07:07)
--- NOTE | 2018-04-21 07:47 | P.PCN ---
Date of Procedure: 04/21/18 Procedure(s) Performed: Brief history: Patient is a 43 year-old pleasant lady scheduled for an ERCP as part of evaluation of abdominal pain and elevated serum transaminases for the last 2 days' duration. She is been having intermittent episodes of severe epigastric pain requiring hospitalization 3 times in the last 3 months. During this hospitalization his other have elevated LFTs and bili of 2.9 suspicious for retained common bile duct stone. She did have an MRCP during last hospitalization in February 2018 which was negative. Procedure performed: ERCP Preoperative diagnoses: Severe intermittent episodes of epigastric pain/ elevated LFTs rule out CBD stone IV sedation per anesthesia: Procedure: After informed consent was obtained from the patient and after the risks benefits and complications including bleeding perforation and pancreatitis explained in detail the patient was brought into the endoscopy unit. The patient was placed in prone position and IV conscious sedation was administered by anesthesia under continuous monitoring. The Olympus side-viewing duodenoscope was then inserted into the mouth and esophagus intubated without any difficulty. The scope was gradually advanced into the stomach and duodenum. The major papilla was identified without any difficulty. Initial cannulation resulted in a paced into the pancreatic duct that appeared normal. Subsequently despite multiple attempts I was not able to cannulate the common bile duct. I used autotome and guidewire technique with no success. At this time the procedure was terminated and the patient tolerated the procedure well. Impression: 1. Normal pancreatic duct 2. Unsuccessful cannulation of the CBD Recommendations: The findings of this examination were discussed with the patient . We'll repeat labs today. If LFTs are increasing, may consider transfer to [facility] for an ERCP.
--- NOTE | 2018-04-21 08:26 | FL ---
EXAMINATION TYPE: FL ERCP DATE OF EXAM: 04/21/2018 CLINICAL HISTORY: Abdominal pain. TECHNIQUE: Fluoroscopy. COMPARISON: CT abdomen and pelvis from 2 days earlier. FINDINGS: Fluoroscopic guidance was provided during ERCP procedure performed by Dr. Dobson. A total of 4 minutes 42 seconds of fluoroscopic time was utilized during the procedure and single spot fluoro scopic image is acquired. Image acquired shows portion of endoscopy scope for accessing duodenal ampulla. Please refer to proce dure note for further details. IMPRESSION: As Above.
--- NOTE | 2018-04-21 08:32 | P.PN ---
Subjective Progress Note Date: 04/21/18 Patient had continued pain overnight. No nausea or vomiting. Hepatitis panel is negative. She underwent ERCP this morning per GI. Unable to cannulate common duct. Objective - Vital Signs Vital signs: Vital Signs Temp 97.9 F 04/20/18 23:00 Pulse 59 L 04/21/18 00:00 Resp 16 04/21/18 00:00 BP 148/84 04/20/18 23:00 Pulse Ox 95 04/20/18 23:00 Intake & Output 04/20/18 04/21/18 04/21/18 18:59 06:59 18:59 Intake Total 250 Output Total 100 Balance -100 250 Intake: IV 250 Output: Urine 100 Other: Voiding Method Toilet Toilet # Voids 1 1 - Constitutional General appearance: Present: cooperative - Respiratory Details: Nonlabored - Cardiovascular Rhythm: regular - Gastrointestinal Gastrointestinal Comment(s): soft/nd/mild TTP mid epigastric - Labs CBC & Chem 7: 04/20/18 08:14 04/20/18 08:14 Labs: Abnormal Lab Results - Last 24 Hours (Table) 04/20/18 04/20/18 Range/Units 08:14 08:14 Chloride 113 H (98-107) mmol/L BUN 5 L (7-17) mg/dL Total Bilirubin 3.1 H 2.9 H (0.2-1.3) mg/dL Conjugated Bilirubin 1.1 H (0.0-0.3) mg/dL Delta Bilirubin 1.1 H (0.0-0.2) mg/dL AST 553 H (14-36) U/L ALT 191 H (9-52) U/L Alkaline Phosphatase 282 H (38-126) U/L Total Protein 5.7 L (6.3-8.2) g/dL Albumin 3.0 L (3.5-5.0) g/dL Assessment and Plan Assessment: Hyperbilirubinemia, elevated LFTs, epigastric abdominal pain Plan: Cont. PPI, Hep panel negative. Plan is for possible transfer to [facility] for ERCP per GI. No plans for surgical intervention.
[2018-04-21] MEDS: PANTOPRAZOLE 40 MG/10 ML VIAL IVP SCH (09:39)
[2018-04-21] MEDS: SUCRALFATE 1 GM TAB PO SCH ×3 (09:46→17:04)
[2018-04-21] MEDS: SIMETHICONE 40 MG/0.6 ML DROPS 2,000 MG/30 ML BOTTLE PO SCH ×3 (09:46→17:06)
[2018-04-21 10:10] LABS: Basophils % (A) 0 %; Eosinophils # (A) 0.1 k/uL (0-0.7); Eosinophils % (A) 1 %; HCT 36.6 % (34.0-46.0); HGB 11.9 gm/dL (11.4-16.0); Lymphocytes # (A) 1.1 k/uL (1.0-4.8); Lymphocytes % (A) 10 %; MCH 30.4 pg (25.0-35.0); MCHC 32.5 g/dL (31.0-37.0); MCV 93.3 fL (80.0-100.0); Mean Platelet Volume 7.6; Monocytes # (A) 0.3 k/uL (0-1.0); Monocytes % (A) 3 %; Neutrophils # (A) 9.2 k/uL (1.3-7.7); Neutrophils % (A) 86 %; Platelet Count 169 k/uL (150-450); RBC 3.92 m/uL (3.80-5.40); RDW 14.1 % (11.5-15.5); WBC 10.8 k/uL (3.8-10.6)
[2018-04-21 10:21] LABS: ALT 201 U/L (9-52); AST 338 U/L (14-36); Alkaline Phosphatase 314 U/L (38-126); Anion Gap 4 mmol/L; Blood Urea Nitrogen 2 mg/dL (7-17); Calcium 9.2 mg/dL (8.4-10.2); Carbon Dioxide 27 mmol/L (22-30); Chloride 109 mmol/L (98-107); Glucose 95 mg/dL (74-99); Potassium 3.7 mmol/L (3.5-5.1); Sodium 140 mmol/L (137-145); Total Bilirubin 2.9 mg/dL (0.2-1.3); Total Protein 5.6 g/dL (6.3-8.2)
--- NOTE | 2018-04-21 13:01 | P.DS ---
Providers Date of admission: 04/19/18 14:02 Attending physician: Dimitri Mota Consults: 04/19/18 13:59 Consult Physician Stat Consulting Provider: Ovidio Byrne Consult Reason/Comments: Abdominal pain Do you want consulting provider notified?: Yes Consult Physician Stat Consulting Provider: Qing Dobson Consult Reason/Comments: Abdominal pain, elevated liver enzymes Do you want consulting provider notified?: Yes Primary care physician: Sanam [facility] Course: 43-year-old female in with severe epigastric abdominal pain right upper quadrant abdominal pain, found to have elevated liver enzymes with elevated bilirubin total bilirubin of 2.9 with significant elevation of direct bilirubin. An elevated liver enzymes AST and ALT. Patient underwent ERCP today normal pancreatic duct but gastroenterology was unable to cannulate common bile duct and gastroenterology believes clinically patient may have a common bile ductal stone patient had cholecystectomy in the past patient does not have any fever or signs or symptoms of sepsis. Gastroenterology is recommending transfer to higher level facility for possible repeat ERCP or MRCP. Patient had multiple hospitalization multiple ER visits as well as outpatient visits for epigastric abdominal pain and multiple endoscopic procedures all of which revealed a gastritis and patient is on simethicone and proton pump inhibitor for this. Considering her continued pain and multiple hospitalizations for similar symptoms with a failed ERCP patient will be transferred to [facility]. PHYSICAL EXAMINATION: GENERAL: The patient is alert and oriented x3, not in any acute distress. Well developed, well nourished. HEENT: Pupils are round and equally reacting to light. EOMI. No scleral icterus. No conjunctival pallor. Normocephalic, atraumatic. No pharyngeal erythema. No thyromegaly. CARDIOVASCULAR: S1 and S2 present. No murmurs, rubs, or gallops. PULMONARY: Chest is clear to auscultation, no wheezing or crackles. ABDOMEN: Soft, nontender, nondistended, normoactive bowel sounds. No palpable organomegaly. MUSCULOSKELETAL: No joint swelling or deformity. EXTREMITIES: No cyanosis, clubbing, or pedal edema. NEUROLOGICAL: Gross neurological examination did not reveal any focal deficits. SKIN: No rashes. Assessment and Plan Plan: -Epigastric abdominal pain: Secondary to common bile ductal stone -Gastritis and esophagitis -Fatty liver: Nonalcoholic steatohepatitis Patient Condition at Discharge: Stable Plan - Discharge Summary Discharge Rx Participant: Yes New Discharge Prescriptions: No Action Mag Hydrox/Al Hydrox/Simeth [Maalox] 30 ml PO Q4HR PRN cup PRN Reason: Gi Upset Simethicone 40 mg/0.6 ml Drops [Mylicon Drops] 40 mg PO QID ml Acetaminophen Tab [Tylenol Tab] 500 mg PO Q6H PRN #30 tablet PRN Reason: Pain Pantoprazole Sodium [Protonix] 40 mg PO BID #60 tablet. Sucralfate [Carafate] 1 gm PO ACHS #120 tab Dicyclomine HCl 10 mg PO QID Discharge Medication List Mag Hydrox/Al Hydrox/Simeth [Maalox] 30 ml PO Q4HR PRN cup 02/12/18 [Rx] Simethicone 40 mg/0.6 ml Drops [Mylicon Drops] 40 mg PO QID ml 02/12/18 [Rx] Acetaminophen Tab [Tylenol Tab] 500 mg PO Q6H PRN #30 tablet 04/11/18 [Rx] Pantoprazole Sodium [Protonix] 40 mg PO BID #60 tablet. 04/11/18 [Rx] Sucralfate [Carafate] 1 gm PO ACHS #120 tab 04/11/18 [Rx] Dicyclomine HCl 10 mg PO QID 04/19/18 [History] Follow up Appointment(s)/Referral(s): Sanam Jensen MD [Primary Care Provider] - 1-2 days
[2018-04-21] MEDS: ONDANSETRON 4 MG/2 ML VIAL IVP PRN (13:09)
[2018-04-21 15:21] VITALS: BP 139/84; PULSE 60; TEMP 98.2
[2018-04-21] MEDS ORDERED: ONDANSETRON 4 MG/2 ML VIAL IVP ONE (21:33)
[2018-04-21] MEDS ORDERED: ONDANSETRON 4 MG/2 ML VIAL IVP PRN (21:33)
[2018-04-21] MEDS ORDERED: DEXAMETHASONE SOD PHOSPHATE 10 MG/ML 1 ML VIAL IV ONE (21:33)
[2018-04-21] MEDS ORDERED: MORPHINE SULFATE 4 MG/ML SYRINGE IV PRN (21:33)
[2018-04-21] MEDS ORDERED: LACTATED RINGERS 1,000 ML IV SCH (21:45)
== END 2018-04-21 17:25 | disposition short-term general hospital (02) | DRG 395 ==
LOC: EC 09:30 → 6PED 14:02 → OBSVTOIN 04-21 08:25 → 6PED 04-21 14:33
PROVIDERS: ADMIT Hospitalist; ATTEND Hospitalist
PROC: BF18YZZ Fluoroscopy of Pancreatic Ducts using Other Contrast (ICD-10-PCS; 2018-04-21)
PROC: 0FJD8ZZ Inspection of Pancreatic Duct, Via Natural or Artificial Opening Endoscopic (ICD-10-PCS; principal; 2018-04-21 07:00)
DX: K91.86 Retained cholelithiasis following cholecystectomy (principal); K29.70 Gastritis, unspecified, without bleeding; K20.9 Esophagitis, unspecified; K75.81 Nonalcoholic steatohepatitis (NASH); M19.91 Primary osteoarthritis, unspecified site; F17.210 Nicotine dependence, cigarettes, uncomplicated; Z71.6 Tobacco abuse counseling; Z79.899 Other long term (current) drug therapy; Z90.49 Acquired absence of other specified parts of digestive tract; Z96.652 Presence of left artificial knee joint; Z88.7 Allergy status to serum and vaccine; Z91.018 Allergy to other foods; Z91.048 Other nonmedicinal substance allergy status; Z83.3 Family history of diabetes mellitus; Z80.3 Family history of malignant neoplasm of breast; Z80.0 Family history of malignant neoplasm of digestive organs; Z80.8 Family history of malignant neoplasm of other organs or systems; Z80.42 Family history of malignant neoplasm of prostate
CPT/HCPCS: 36415; 43260; 71046; 74177; 74330; 76705; 80053; 80074; 81003; 81025; 82150; 82248; 82550; 82553; 83605; 83690; 84484; 85025; 85610; 85730; 93005; 96361; 96372; 96374; 96375; 99285

== ENCOUNTER 2018-04-24 18:48 | Emergency (ER) | payer OTHER ==
[2018-04-24 19:05] VITALS: TEMP 97.5
[2018-04-24] MEDS ORDERED: SODIUM CHLORIDE 0.9% 1,000 ML IV STA (19:37)
[2018-04-24] MEDS ORDERED: MORPHINE SULFATE 4 MG/ML SYRINGE IV STA (19:37)
[2018-04-24] MEDS ORDERED: ONDANSETRON 4 MG/2 ML VIAL IVP STA (19:37)
[2018-04-24 20:15] LABS: Basophils % (A) 0 %; Eosinophils # (A) 0.2 k/uL (0-0.7); Eosinophils % (A) 2 %; HCT 45.1 % (34.0-46.0); HGB 14.7 gm/dL (11.4-16.0); Lymphocytes # (A) 1.5 k/uL (1.0-4.8); Lymphocytes % (A) 13 %; MCH 30.1 pg (25.0-35.0); MCHC 32.7 g/dL (31.0-37.0); MCV 92.2 fL (80.0-100.0); Mean Platelet Volume 7.5; Monocytes # (A) 0.4 k/uL (0-1.0); Monocytes % (A) 3 %; Neutrophils # (A) 9.1 k/uL (1.3-7.7); Neutrophils % (A) 81 %; Platelet Count 221 k/uL (150-450); RBC 4.89 m/uL (3.80-5.40); RDW 14.4 % (11.5-15.5); WBC 11.3 k/uL (3.8-10.6)
[2018-04-24 20:27] LABS: ALT 103 U/L (9-52); AST 66 U/L (14-36); Albumin 4.2 g/dL (3.5-5.0); Alkaline Phosphatase 432 U/L (38-126); Amylase 49 U/L (30-110); Anion Gap 11 mmol/L; Blood Urea Nitrogen 10 mg/dL (7-17); Calcium 10.6 mg/dL (8.4-10.2); Carbon Dioxide 25 mmol/L (22-30); Chloride 104 mmol/L (98-107); Glucose 101 mg/dL (74-99); Lipase 100 U/L (23-300); Potassium 3.4 mmol/L (3.5-5.1); Sodium 140 mmol/L (137-145); Total Bilirubin 1.7 mg/dL (0.2-1.3); Total Protein 7.7 g/dL (6.3-8.2)
[2018-04-24] MEDS ORDERED: HYDROmorphone 1 MG/ML 1 ML SYRINGE IVP STA ×2 (20:47→22:42)
--- NOTE | 2018-04-24 20:48 | XR ---
EXAMINATION TYPE: XR KUB DATE OF EXAM: 04/24/2018 COMPARISON: 04/02/2018 HISTORY: Abdominal pain TECHNIQUE: 2 upright views FINDINGS: There is no sign of intestinal obstruction or pneumoperitoneum. Fecal pattern is normal. Th ere is IUD noted. There are clips from cholecystectomy. I see no definite pathologic calcifications o isis the kidneys. Lung bases are clear. IMPRESSION: Nonacute abdomen.
[2018-04-24 21:25] LABS: Appearance,Urine Cloudy (Clear); Bacteria,Urine Occasional /hpf; Bilirubin,Urine 1+ (Negative); Blood,Urine Moderate (Negative); Color,Urine Yellow; Glucose,Urine (UA) Negative (Negative); Ketones,Urine 2+ (Negative); Leukocyte Esterase,Urine Moderate (Negative); Mucus,Urine Occasional /hpf; Nitrite,Urine Negative (Negative); PH, Urine 6.5 (5.0-8.0); Protein,Urine Trace (Negative); RBC,Urine 1 /hpf (0-5); Specific Gravity,Urine 1.019 (1.001-1.035); Squamous Epithelial Cell,Urine 11 /hpf (0-4); WBC,Urine 10 /hpf (0-5)
--- NOTE | 2018-04-24 21:49 | CT ---
EXAMINATION TYPE: CT ChestAbdPelvis w con DATE OF EXAM: 04/24/2018 COMPARISON: CT abdomen 04/19/2018 HISTORY: Epigastric pain, nausea and vomiting. CT DLP: 1535.1 mGycm Automated exposure control for dose reduction was used. CONTRAST: CT scan of the chest, abdomen and pelvis is performed without Oral Contrast and with IV Contrast, pat ient injected with 100ml mL of Isovue 300. FINDINGS: There is small linear density in the lingula left upper lobe. There is small linear density left and right posterior lung base. This is consistent with scarring and subsegmental atelectasis. There is no pericardial effusion. There is no pleural effusion. There is no mediastinal adenopathy. Thoracic aor ta appears normal. There is no evidence of aneurysm or dissection. There are no hilar masses. There i s distended fluid-filled esophagus. This could relate to reflux. Liver spleen pancreas appear normal. There are clips from cholecystectomy. The bile ducts are not dil ated. There is no adrenal mass. Kidneys have normal size and contour. There is no hydronephrosis. The re is no retroperitoneal adenopathy. There is a 7 cm pigtail catheter that appears to be in the duode num and common bile duct. There is no mesenteric adenopathy or edema. There is IUD noted in the glenda l position in the uterus. Uterus is anteverted. Bladder is almost empty. I see no intestinal wall thi ckening. There are no dilated loops. There is no inguinal hernia. Appendix appears normal. The abdomi nal soft tissues are unremarkable. The bony pelvis is intact. Lumbar spine and thoracic spine are intact. I see no bony destructive proc ess. IMPRESSION: Mild subsegmental atelectasis at the lung bases increased compared to last exam. Biliary catheter is noted that is new compared to recent exam. No dilated ducts. There is some fluid in distal esophagus that could relate to reflux disease.
[2018-04-24] MEDS ORDERED: ACET/COD 300 MG/30 MG STARTER PACK 6 TAB BTL PO STA (22:42)
--- NOTE | 2018-04-24 22:43 | ED ---
Abdominal Pain HPI - General Source: patient Mode of arrival: EMS Limitations: no limitations <Thuy Zhang - Last Filed: 04/25/18 00:14> <Fiona Mancia - Last Filed: 04/25/18 02:08> - General Chief Complaint: Abdominal Pain Stated Complaint: post surgical pain, abd Time Seen by Provider: 04/24/18 19:25 - History of Present Illness Initial Comments: 43-year-old female patient presents to the emergency department today for complaints of midepigastric abdominal pain. She describes the pain as sharp and stabbing. States that it radiates into her back and up to her chest. The patient states that she was discharged from [facility] today after having a pigtail catheter placed in her bile duct. Patient was transferred from this hospital when presiding steward having difficulty removing a stone from the bile duct. Patient underwent ERCP with removal of stone, and placement of the catheter yesterday. She states that she had breakfast and lunch today without difficulty. When she arrived home she started having pain in her abdomen and has steadily worsened throughout the night. Patient states she has vomited several times. She denies any hematemesis. She denies any fever, chills, constipation, diarrhea, shortness of breath, dizziness, or weakness. Patient denies any recent rash, back pain, numbness, tingling, hematuria, dysuria, urinary urgency, urinary frequency, headache, visual changes , or any other complaints. (Thuy Zhang) - Related Data Home Medications Medication Instructions Recorded Confirmed Dicyclomine HCl 10 mg PO QID 04/19/18 04/24/18 Previous Rx's Medication Instructions Recorded Mag Hydrox/Al Hydrox/Simeth 30 ml PO Q4HR PRN cup 02/12/18 [Maalox] Simethicone 40 mg/0.6 ml Drops 40 mg PO QID ml 02/12/18 [Mylicon Drops] Acetaminophen Tab [Tylenol Tab] 500 mg PO Q6H PRN #30 tablet 04/11/18 Pantoprazole Sodium [Protonix] 40 mg PO BID #60 tablet. 04/11/18 Sucralfate [Carafate] 1 gm PO ACHS #120 tab 04/11/18 Allergies Allergy/AdvReac Type Severity Reaction Status Date / Time adhesive Allergy Severe Rash/Hives Verified 04/24/18 19:39 tetanus immune globulin Allergy Severe Anaphylaxis Verified 04/24/18 19:39 banana Allergy Mild Rash/Hives Verified 04/24/18 19:39 Review of Systems ROS Other: All systems not noted in ROS Statement are negative. <Thuy Zhang M - Last Filed: 04/25/18 00:14> ROS Other: All systems not noted in ROS Statement are negative. <Fiona Mancia P - Last Filed: 04/25/18 02:08> ROS Statement: Those systems with pertinent positive or pertinent negative responses have been documented in the HPI. Past Medical History Past Medical History: Osteoarthritis (OA) Additional Past Medical History / Comment(s): gastritis, History of Any Multi-Drug Resistant Organisms: None Reported Past Surgical History: Cholecystectomy, Joint Replacement Additional Past Surgical History / Comment(s): TOTAL LEFT KNEE, kidney stone removal Past Anesthesia/Blood Transfusion Reactions: Previous Problems w/ Anesthesia Additional Past Anesthesia/Blood Transfusion Reaction / Comment(s): TOOK LONGER TO WAKE UP WITH KNEE SURGERY PER PATIENT Past Psychological History: No Psychological Hx Reported Smoking Status: Current every day smoker Past Alcohol Use History: None Reported Past Drug Use History: None Reported - Past Family History Mother Family Medical History: Diabetes Mellitus Additional Family Medical History / Comment(s): Patient reports history of cancer in the family including breast cancer, liver cancer, brain cancer, prostate cancer Father Family Medical History: Diabetes Mellitus Additional Family Medical History / Comment(s): heart patient <Thuy Zhang - Last Filed: 04/25/18 00:14> General Exam Limitations: no limitations General appearance: alert, in no apparent distress, other (This is a well- developed, well-nourished adult female patient in no acute distress.Vital signs upon presentation are temperature 97.5F, pulse 63, respirations 24, blood pressure 140/84, pulse ox 96% on room air.) Eye exam: Present: normal appearance, PERRL, EOMI. Absent: scleral icterus, conjunctival injection, periorbital swelling ENT exam: Present: normal exam, normal oropharynx, mucous membranes moist Respiratory exam: Present: normal lung sounds bilaterally. Absent: respiratory distress, wheezes, rales, rhonchi, stridor Cardiovascular Exam: Present: regular rate, normal rhythm, normal heart sounds. Absent: systolic murmur, diastolic murmur, rubs, gallop, clicks GI/Abdominal exam: Present: soft, tenderness (upper abdominal tenderness), normal bowel sounds. Absent: distended, guarding, rebound, rigid Neurological exam: Present: alert, oriented X3, CN II-XII intact Psychiatric exam: Present: normal affect, normal mood Skin exam: Present: warm, dry, intact, normal color. Absent: rash <Thuy Zhang - Last Filed: 04/25/18 00:14> Vital Signs 04/24/18 04/24/18 19:03 23:24 Temperature 97.5 F L Pulse Rate 63 55 L Respiratory 24 16 Rate Blood Pressure 140/84 164/78 O2 Sat by Pulse 96 98 Oximetry Medical Decision Making - Lab Data Result diagrams: 04/24/18 20:02 04/24/18 20:02 - Radiology Data Radiology results: report reviewed, image reviewed <Thuy Zhang - Last Filed: 04/25/18 00:14> - Lab Data Result diagrams: 04/24/18 20:02 04/24/18 20:02 <Fiona Mancia - Last Filed: 04/25/18 02:08> - Medical Decision Making 43-year-old female patient presented to the emergency department today for evaluation of upper abdominal pain radiating into her chest and back. The patient underwent a recent ERCP with stone removal and biliary catheter placement. Physical examination did reveal upper abdominal tenderness. Patient was quite distraught, screaming, and crying in the emergency department. Just before her CT abdomen and pelvis she started having pain radiating into her chest, we changes to her chest abdomen and pelvis CT. Labs reviewed and were unremarkable no acute changes. CT showed no acute abnormalities, no dilated ducts. Patient is feeling better upon reevaluation and pain medication administration. Did discuss the pain is most likely related to diaphragmatic irritation. She is instructed to continue with a clear liquid diet and advance to a bland diet as tolerated. She is instructed to avoid fatty or greasy foods. She is instructed to follow-up with her surgeon for recheck as soon as possible. Return parameters discussed in detail. She verbalizes understanding and agrees with this plan. (Thuy Zhang) Robert was available for consultation in the emergency department. The history and physical exam were done by the midlevel provider. I was consulted for this patient's care. I reviewed the case with the midlevel provider and based on their presentation of the patient, I agree with the assessment, medical decision making and plan of care as documented. (Fiona Mancia) - Lab Data Lab Results 04/24/18 04/24/18 04/24/18 Range/Units 20:02 20:02 20:02 WBC 11.3 H (3.8-10.6) k/uL RBC 4.89 (3.80-5.40) m/uL Hgb 14.7 (11.4-16.0) gm/dL Hct 45.1 (34.0-46.0) % MCV 92.2 (80.0-100.0) fL MCH 30.1 (25.0-35.0) pg MCHC 32.7 (31.0-37.0) g/dL RDW 14.4 (11.5-15.5) % Plt Count 221 (150-450) k/uL Neutrophils % 81 % Lymphocytes % 13 % Monocytes % 3 % Eosinophils % 2 % Basophils % 0 % Neutrophils # 9.1 H (1.3-7.7) k/uL Lymphocytes # 1.5 (1.0-4.8) k/uL Monocytes # 0.4 (0-1.0) k/uL Eosinophils # 0.2 (0-0.7) k/uL Basophils # 0.0 (0-0.2) k/uL Sodium 140 (137-145) mmol/L Potassium 3.4 L (3.5-5.1) mmol/L Chloride 104 (98-107) mmol/L Carbon Dioxide 25 (22-30) mmol/L Anion Gap 11 mmol/L BUN 10 (7-17) mg/dL Creatinine 0.70 (0.52-1.04) mg/dL Est GFR (CKD-EPI)AfAm >90 (>60 ml/min/1.73 sqM) Est GFR (CKD-EPI)NonAf >90 (>60 ml/min/1.73 sqM) Glucose 101 H (74-99) mg/dL Calcium 10.6 H (8.4-10.2) mg/dL Total Bilirubin 1.7 H (0.2-1.3) mg/dL AST 66 H (14-36) U/L ALT 103 H (9-52) U/L Alkaline Phosphatase 432 H (38-126) U/L Total Creatine Kinase <20 L (30-135) U/L CK-MB (CK-2) 0.4 (0.0-2.4) ng/mL CK-MB (CK-2) Rel Index Troponin I <0.012 (0.000-0.034) ng/mL Total Protein 7.7 (6.3-8.2) g/dL Albumin 4.2 (3.5-5.0) g/dL Amylase 49 (30-110) U/L Lipase 100 (23-300) U/L Urine Color Urine Appearance (Clear) Urine pH (5.0-8.0) Ur Specific [place] (1.001-1.035) Urine Protein (Negative) Urine Glucose (UA) (Negative) Urine Ketones (Negative) Urine Blood (Negative) Urine Nitrite (Negative) Urine Bilirubin (Negative) Urine Urobilinogen (<2.0) mg/dL Ur Leukocyte Esterase (Negative) Urine RBC (0-5) /hpf Urine WBC (0-5) /hpf Ur Squamous Epith Cells (0-4) /hpf Urine Bacteria (None) /hpf Urine Mucus (None) /hpf 04/24/18 Range/Units 20:50 WBC (3.8-10.6) k/uL RBC (3.80-5.40) m/uL Hgb (11.4-16.0) gm/dL Hct (34.0-46.0) % MCV (80.0-100.0) fL MCH (25.0-35.0) pg MCHC (31.0-37.0) g/dL RDW (11.5-15.5) % Plt Count (150-450) k/uL Neutrophils % % Lymphocytes % % Monocytes % % Eosinophils % % Basophils % % Neutrophils # (1.3-7.7) k/uL Lymphocytes # (1.0-4.8) k/uL Monocytes # (0-1.0) k/uL Eosinophils # (0-0.7) k/uL Basophils # (0-0.2) k/uL Sodium (137-145) mmol/L Potassium (3.5-5.1) mmol/L Chloride (98-107) mmol/L Carbon Dioxide (22-30) mmol/L Anion Gap mmol/L BUN (7-17) mg/dL Creatinine (0.52-1.04) mg/dL Est GFR (CKD-EPI)AfAm (>60 ml/min/1.73 sqM) Est GFR (CKD-EPI)NonAf (>60 ml/min/1.73 sqM) Glucose (74-99) mg/dL Calcium (8.4-10.2) mg/dL Total Bilirubin (0.2-1.3) mg/dL AST (14-36) U/L ALT (9-52) U/L Alkaline Phosphatase (38-126) U/L Total Creatine Kinase (30-135) U/L CK-MB (CK-2) (0.0-2.4) ng/mL CK-MB (CK-2) Rel Index Troponin I (0.000-0.034) ng/mL Total Protein (6.3-8.2) g/dL Albumin (3.5-5.0) g/dL Amylase (30-110) U/L Lipase (23-300) U/L Urine Color Yellow Urine Appearance Cloudy H (Clear) Urine pH 6.5 (5.0-8.0) Ur Specific [place] 1.019 (1.001-1.035) Urine Protein Trace H (Negative) Urine Glucose (UA) Negative (Negative) Urine Ketones 2+ H (Negative) Urine Blood Moderate H (Negative) Urine Nitrite Negative (Negative) Urine Bilirubin 1+ H (Negative) Urine Urobilinogen 12.0 (<2.0) mg/dL Ur Leukocyte Esterase Moderate H (Negative) Urine RBC 1 (0-5) /hpf Urine WBC 10 H (0-5) /hpf Ur Squamous Epith Cells 11 H (0-4) /hpf Urine Bacteria Occasional H (None) /hpf Urine Mucus Occasional H (None) /hpf - Radiology Data View x-ray of the abdomen was obtained. There is no sign of intestinal obstruction or pneumoperitoneum. Fecal pattern is normal. There is IUD noted. There are clips from cholecystectomy. See no definite pathologic calcifications over the kidneys. Lung bases are clear. Impression by Dr. Nino shows nonacute abdomen. CT chest abdomen pelvis with contrast was obtained. Report was reviewed in its entirety. Impression by Dr. Nino shows mild subsegmental atelectasis at the lung bases increased compared to last exam. Biliary catheter is noted that is new compared to recent exam. No dilated ducts. There is some fluid in the distal esophagus that could relate to reflux disease. (Thuy Zhang) Disposition Is patient prescribed a controlled substance at d/c from ED?: No Time of Disposition: 22:43 <Thuy Zhang - Last Filed: 04/25/18 00:14> <Fiona Mancia - Last Filed: 04/25/18 02:08> Clinical Impression: Abdominal pain Disposition: HOME SELF-CARE Condition: Good Instructions: Abdominal Pain (ED) Additional Instructions: Follow bland diet, start with clear liquids advance as tolerated. Follow-up with your surgeon for recheck as an as possible. Return here immediately for any new, worsening, or concerning symptoms. Referrals: Sanam Jensen MD [Primary Care Provider] - 1-2 days
[2018-04-24 23:27] VITALS: BP 164/78; PULSE 55; RESP 16
[2018-04-25 00:38] LABS: Creatine Kinase <20 U/L (30-135)
[2018-04-25 00:52] LABS: Creatine Kinase MB 0.4 ng/mL (0.0-2.4); Troponin I <0.012 ng/mL (0.000-0.034)
== END 2018-04-24 23:35 | disposition home or self-care (01) ==
LOC: EC 18:48
DX: R10.13 Epigastric pain (principal); R11.10 Vomiting, unspecified; M19.90 Unspecified osteoarthritis, unspecified site; F17.200 Nicotine dependence, unspecified, uncomplicated; Z79.899 Other long term (current) drug therapy; Z91.018 Allergy to other foods; Z88.7 Allergy status to serum and vaccine; Z91.048 Other nonmedicinal substance allergy status; Z90.49 Acquired absence of other specified parts of digestive tract; Z96.89 Presence of other specified functional implants
CPT/HCPCS: 36415; 71260; 74018; 74177; 80053; 81001; 82150; 82550; 82553; 83690; 84484; 85025; 96361; 96374; 96375; 96376; 99285

== ENCOUNTER 2018-05-08 10:27 | Day surgery (SDC) | payer OTHER ==
[2018-05-06 12:09] VITALS: BMI 35.0
[2018-05-08 11:28] VITALS: RESP 16; TEMP 98.7
[2018-05-08] MEDS ORDERED: PROPOFOL 10 MG/ML 20 ML VIAL IV ONE (12:05)
--- NOTE | 2018-05-08 12:15 | P.PCN ---
Date of Procedure: 05/08/18 Procedure(s) Performed: BRIEF HISTORY: Patient is a 43-year-old, pleasant, white female, scheduled for an upper endoscopy for a pancreatic duct stent removal. The patient underwent an ERCP with prophylactic pancreatic stent placement 2 weeks ago at [facility] for CBD stone removal l.. PROCEDURE PERFORMED: Esophagogastroduodenoscopy. PREOPERATIVE DIAGNOSIS: Pancreatic duct stent removal. IV sedation per anesthesia. PROCEDURE: After informed consent was obtained, the patient was brought into the endoscopy unit. IV sedation was administered by Anesthesia under continuous monitoring. Initially the Olympus GIF-140 video endoscope was inserted into the mouth. Esophagus intubated without any difficulty. It was gradually advanced into the stomach and duodenum and carefully examined. The bulb and the second part of the duodenum appeared normal. The pancreatic duct stent was not seen. The scope at this time was withdrawn to the stomach, adequately insufflated with air, and upon careful examination, mucosa of the antrum had mild gastritis. The, body, cardia and the fundus appeared normal. The scope was then withdrawn into the esophagus. The GE junction was located at 39 cm from the incisors. The esophagus appeared normal. There were no erosions or ulcerations seen and the patient tolerated the procedure well. IMPRESSION: 1. Mild gastritis. 2. No pancreatic duct stent seen. RECOMMENDATIONS: The findings of this examination were discussed with the patient as well as a family. She was advised to follow with the office in 6 weeks.
[2018-05-08 12:34] VITALS: BP 119/73; PULSE 80
== END 2018-05-08 12:53 | disposition home or self-care (01) ==
LOC: ORWHC2ENDO 10:27
PROVIDERS: ATTEND Internal Medicine Gastroenterology
DX: K29.70 Gastritis, unspecified, without bleeding (principal); Z46.89 Encounter for fitting and adjustment of other specified devices; Z87.442 Personal history of urinary calculi; F39 Unspecified mood [affective] disorder; Z72.0 Tobacco use; Z79.899 Other long term (current) drug therapy; Z88.7 Allergy status to serum and vaccine
CPT/HCPCS: 81025; 43235; J2704

== ENCOUNTER 2018-06-10 08:03 | Emergency (ER) | payer OTHER ==
[2018-06-10 08:15] VITALS: RESP 18
[2018-06-10] MEDS ORDERED: SODIUM CHLORIDE 0.9% 1,000 ML IV STA (08:31)
[2018-06-10] MEDS ORDERED: MORPHINE SULFATE 4 MG/ML SYRINGE IVP PRN (09:05)
[2018-06-10 09:08] LABS: Basophils % (A) 0 %; Eosinophils # (A) 0.1 k/uL (0-0.7); Eosinophils % (A) 1 %; HCT 40.6 % (34.0-46.0); HGB 13.3 gm/dL (11.4-16.0); Lymphocytes # (A) 1.6 k/uL (1.0-4.8); Lymphocytes % (A) 16 %; MCH 30.3 pg (25.0-35.0); MCHC 32.7 g/dL (31.0-37.0); MCV 92.7 fL (80.0-100.0); Mean Platelet Volume 7.1; Monocytes # (A) 0.3 k/uL (0-1.0); Monocytes % (A) 3 %; Neutrophils # (A) 7.9 k/uL (1.3-7.7); Neutrophils % (A) 79 %; Platelet Count 215 k/uL (150-450); RBC 4.38 m/uL (3.80-5.40); RDW 14.8 % (11.5-15.5); WBC 10.1 k/uL (3.8-10.6)
--- NOTE | 2018-06-10 09:08 | ED ---
General Adult HPI - General Chief complaint: Abdominal Pain Stated complaint: Abd.pain Time Seen by Provider: 06/10/18 08:29 Source: patient, EMS Mode of arrival: EMS Limitations: no limitations - History of Present Illness Initial comments: Dictation was produced using [employer] dictation software. please excuse any grammatical, word or spelling errors. Chief Complaint: 43-year-old female with past medical history of a cystectomy and obstructed bile duct presents with epigastric and right upper quadrant abdominal pain. History of Present Illness: Patient is a 43-year-old female with past medical history of cholecystectomy, shortened did biliary duct presents with epigastric and right upper quadrant abdominal pain. Patient states her symptoms began acutely today. Patient has extensive history of abdominal pain. Patient states that her symptoms started after drinking coffee today. She states that sharp. She is worse with palpation and deep inspiration. Proximal couple months ago patient had biliary stent placed for biliary stones. She states that the stones occurred after cholecystectomy. The ROS documented in this emergency department record has been reviewed and confirmed by me. Those systems with pertinent positive or negative responses have been documented in the HPI. All other systems are other negative and/or noncontributory. - Related Data Home Medications Medication Instructions Recorded Confirmed Dicyclomine HCl 10 mg PO QID PRN 04/19/18 06/10/18 Amitriptyline HCl 25 mg PO HS 05/06/18 06/10/18 Artificial Tears-Hypromellose 1 drop BOTH EYES DAILY 06/10/18 06/10/18 [Artificial Tear Drops] Simethicone 40 mg/0.6 ml Drops 40 mg PO QID PRN 06/10/18 06/10/18 [Mylicon Drops] Previous Rx's Medication Instructions Recorded Acetaminophen Tab [Tylenol Tab] 500 mg PO Q6H PRN #30 tablet 04/11/18 Pantoprazole Sodium [Protonix] 40 mg PO BID #60 tablet. 04/11/18 Sucralfate [Carafate] 1 gm PO ACHS #120 tab 04/11/18 Allergies Allergy/AdvReac Type Severity Reaction Status Date / Time adhesive Allergy Severe Rash/Hives Verified 06/10/18 09:51 tetanus immune globulin Allergy Severe Anaphylaxis Verified 06/10/18 09:51 banana Allergy Mild Rash/Hives Verified 11/28/18 09:51 Review of Systems ROS Statement: Those systems with pertinent positive or pertinent negative responses have been documented in the HPI. ROS Other: All systems not noted in ROS Statement are negative. Past Medical History Past Medical History: Osteoarthritis (OA) Additional Past Medical History / Comment(s): Gastritis. HX LOW HR BRIEFLY 2017, CARDIAC W/U DONE. HAD GALLSTONE BLOCKING ASHLY DUCT, ERCP W/ STENT DONE AT [facility] 04/2018. HX RECENT JAUNDICE R/T INFLAMMATION LIVER/PANCREAS/KIDNEYS. History of Any Multi-Drug Resistant Organisms: None Reported Past Surgical History: Cholecystectomy, Joint Replacement, Orthopedic Surgery Additional Past Surgical History / Comment(s): TOTAL LEFT KNEE 12/2016. ASHLY CTR. ASHLY ELBOW CUBITAL TUNNEL. Kidney Stone Removal. 03/2018 EGD; ERCP; ERCP W/ STENT PLACED 04/23/18. Past Anesthesia/Blood Transfusion Reactions: Previous Problems w/ Anesthesia Additional Past Anesthesia/Blood Transfusion Reaction / Comment(s): TOOK LONGER TO WAKE UP W/ TOTAL KNEE SURGERY. Past Psychological History: No Psychological Hx Reported Smoking Status: Light tobacco smoker Past Alcohol Use History: Occasional - Past Family History Mother Family Medical History: Diabetes Mellitus Additional Family Medical History / Comment(s): Patient reports history of cancer in the family including breast cancer, liver cancer, brain cancer, prostate cancer Father Family Medical History: Diabetes Mellitus Additional Family Medical History / Comment(s): heart patient General Exam - General Exam Comments Initial Comments: PHYSICAL EXAM: General Impression: Alert and oriented x3, acute distress secondary to abdominal pain HEENT: Normocephalic atraumatic, extra-ocular movements intact, pupils equal and reactive to light bilaterally, mucous membranes moist. Cardiovascular: Heart regular rate and rhythm, S1&S2 audible, no murmurs, rubs or gallops Chest: Lungs clear to auscultation bilaterally, no rhonchi, no wheeze, no rales Abdomen: Voluntary guarding, tenderness to palpation of the epigastric and right upper quadrant region. Musculoskeletal: Pulses present and equal in all extremities, no peripheral edema Motor: Power 5/5 bilaterally, no focal deficits noted Neurological: CN II-XII grossly intact, no focal motor or sensory deficits noted Skin: Intact with no visualized rashes Psych: Normal affect and mood Limitations: no limitations Course Vital Signs 06/10/18 06/10/18 06/10/18 08:09 08:30 09:00 Temperature 97.1 F L Pulse Rate 79 62 Respiratory 18 18 18 Rate Blood Pressure 120/66 120/66 108/60 O2 Sat by Pulse 97 97 97 Oximetry 06/10/18 06/10/18 09:30 10:30 Temperature Pulse Rate 63 59 L Respiratory 18 18 Rate Blood Pressure 124/66 111/69 O2 Sat by Pulse 98 Oximetry Medical Decision Making - Medical Decision Making ED course: 43-year-old female with abdominal history presents with 1 day of epigastric and right upper quadrant abdominal pain. Vital signs upon arrival are within acceptable limits. Patient is tearful.Laboratory evaluation obtained. CBC, metabolic panel is unremarkable. Lipase level is negative. Abdominal labs are unremarkable. Patient does have slight increase in alk phos level however decreased from recently. X-ray of the abdomen showed some atelectasis to the lung base. Chest x-ray shows right lung base subsegmental changes. Patient not having coughing symptoms. She is afebrile. Patient also having symptoms to suggest pneumonia. Patient given IV analgesics with improved symptoms. Patient be discharged. She told to follow-up with digital media planner. Patient satisfied and agreeable to plan. - Lab Data Result diagrams: 06/10/18 08:19 06/10/18 08:19 Lab Results 06/10/18 06/10/18 06/10/18 Range/Units 08:19 08:19 08:43 WBC 10.1 (3.8-10.6) k/uL RBC 4.38 (3.80-5.40) m/uL Hgb 13.3 (11.4-16.0) gm/dL Hct 40.6 (34.0-46.0) % MCV 92.7 (80.0-100.0) fL MCH 30.3 (25.0-35.0) pg MCHC 32.7 (31.0-37.0) g/dL RDW 14.8 (11.5-15.5) % Plt Count 215 (150-450) k/uL Neutrophils % 79 % Lymphocytes % 16 % Monocytes % 3 % Eosinophils % 1 % Basophils % 0 % Neutrophils # 7.9 H (1.3-7.7) k/uL Lymphocytes # 1.6 (1.0-4.8) k/uL Monocytes # 0.3 (0-1.0) k/uL Eosinophils # 0.1 (0-0.7) k/uL Basophils # 0.0 (0-0.2) k/uL Sodium 139 (137-145) mmol/L Potassium 4.0 (3.5-5.1) mmol/L Chloride 109 H (98-107) mmol/L Carbon Dioxide 22 (22-30) mmol/L Anion Gap 8 mmol/L BUN 10 (7-17) mg/dL Creatinine 0.58 (0.52-1.04) mg/dL Est GFR (CKD-EPI)AfAm >90 (>60 ml/min/1.73 sqM) Est GFR (CKD-EPI)NonAf >90 (>60 ml/min/1.73 sqM) Glucose 113 H (74-99) mg/dL Calcium 10.0 (8.4-10.2) mg/dL Total Bilirubin 1.4 H (0.2-1.3) mg/dL AST 88 H (14-36) U/L ALT 27 (9-52) U/L Alkaline Phosphatase 178 H (38-126) U/L Total Protein 6.5 (6.3-8.2) g/dL Albumin 3.5 (3.5-5.0) g/dL Amylase <30 L (30-110) U/L Lipase 19 L (23-300) U/L Urine Color Yellow Urine Appearance Cloudy H (Clear) Urine pH 5.5 (5.0-8.0) Ur Specific [place] 1.017 (1.001-1.035) Urine Protein Negative (Negative) Urine Glucose (UA) Negative (Negative) Urine Ketones Negative (Negative) Urine Blood Moderate H (Negative) Urine Nitrite Negative (Negative) Urine Bilirubin Negative (Negative) Urine Urobilinogen <2.0 (<2.0) mg/dL Ur Leukocyte Esterase Large H (Negative) Urine RBC 3 (0-5) /hpf Urine WBC 23 H (0-5) /hpf Ur Squamous Epith Cells 24 H (0-4) /hpf Urine Bacteria Occasional H (None) /hpf Urine Mucus Few H (None) /hpf Disposition Clinical Impression: Abdominal pain Disposition: HOME SELF-CARE Instructions: Abdominal Pain (ED) Is patient prescribed a controlled substance at d/c from ED?: No Referrals: Sanam Jensen MD [Primary Care Provider] - 1-2 days Time of Disposition: 11:44
[2018-06-10 09:18] LABS: ALT 27 U/L (9-52); AST 88 U/L (14-36); Albumin 3.5 g/dL (3.5-5.0); Alkaline Phosphatase 178 U/L (38-126); Amylase <30 U/L (30-110); Anion Gap 8 mmol/L; Blood Urea Nitrogen 10 mg/dL (7-17); Carbon Dioxide 22 mmol/L (22-30); Chloride 109 mmol/L (98-107); Glucose 113 mg/dL (74-99); Lipase 19 U/L (23-300); Sodium 139 mmol/L (137-145); Total Bilirubin 1.4 mg/dL (0.2-1.3); Total Protein 6.5 g/dL (6.3-8.2)
[2018-06-10 09:20] LABS: Appearance,Urine Cloudy (Clear); Bacteria,Urine Occasional /hpf; Bilirubin,Urine Negative (Negative); Blood,Urine Moderate (Negative); Color,Urine Yellow; Glucose,Urine (UA) Negative (Negative); Ketones,Urine Negative (Negative); Leukocyte Esterase,Urine Large (Negative); Mucus,Urine Few /hpf; Nitrite,Urine Negative (Negative); PH, Urine 5.5 (5.0-8.0); Protein,Urine Negative (Negative); RBC,Urine 3 /hpf (0-5); Specific Gravity,Urine 1.017 (1.001-1.035); Squamous Epithelial Cell,Urine 24 /hpf (0-4); Urobilinogen,Urine <2.0 mg/dL (<2.0); WBC,Urine 23 /hpf (0-5)
--- NOTE | 2018-06-10 09:48 | XR ---
EXAMINATION TYPE: XR chest 2V DATE OF EXAM: 06/10/2018 COMPARISON: NONE TECHNIQUE: PA and lateral views submitted. HISTORY: Pain FINDINGS: Coarsened interstitium. Subsegmental changes at the right lung base. Surgical clips in the abdomen. N o pleural effusion or pneumothorax. Heart size at upper limits of normal. IMPRESSION: 1. Basilar subsegmental changes correlate for atelectasis versus early infiltrate.
--- NOTE | 2018-06-10 09:49 | XR ---
EXAMINATION TYPE: XR abdomen 1V DATE OF EXAM: 06/10/2018 COMPARISON: NONE HISTORY: Pain TECHNIQUE: One view abdominal series FINDINGS: Surgical clips right upper quadrant. Subsegmental changes at the lung bases. Bowel gas pattern nonspe cific. Calcifications in the pelvis likely vascular. Hypertrophic change of the symphysis pubis noted . Intrauterine device noted within the pelvis. IMPRESSION: 1. Nonspecific abdomen. 2. Basilar atelectasis or less likely infiltrate correlate clinically.
--- NOTE | 2018-06-10 10:59 | US ---
EXAMINATION TYPE: US abdomen complete DATE OF EXAM: 06/10/2018 COMPARISON: CT & US 05/20/2018 CLINICAL HISTORY: Pain. Pt states ABD pain, GB removed, H/O CBD stone with stent placement and remova l in SEPT EXAM MEASUREMENTS: Liver Length: 16.6 cm CBD: 1.0 cm proximal, 0.9 cm distally Spleen: 8.8 cm Right Kidney: 9.8 x 4.7 x 4.8 cm Left Kidney: 10.3 x 4.9 x 4.7 cm Pancreas: Hyperechoic, lobular contour, tail obscured by overlying bowel gas Liver: wnl Gallbladder: Surgically absent Evidence for sonographic Robert's sign: No CBD: Upper limits of normal for post susan Spleen: wnl Right Kidney: wnl Left Kidney: wnl Upper IVC: wnl Abd Aorta: wnl The liver is homogenous. The intrahepatic portion of the IVC and proximal abdominal aorta are within normal limits. Common bile duct is unremarkable The spleen is unremarkable. Kidneys are symmetric and free of hydronephrosis. No renal lesions are seen. IMPRESSION: 1. Lobular contour of the pancreas without distinct mass identified.
[2018-06-10 11:47] VITALS: BP 106/56; PULSE 66; TEMP 98.2
== END 2018-06-10 11:53 | disposition home or self-care (01) ==
LOC: SUPCPDRO 08:03 → EC 08:03
DX: R10.13 Epigastric pain (principal); R10.11 Right upper quadrant pain; R74.8 Abnormal levels of other serum enzymes; J98.11 Atelectasis; F17.200 Nicotine dependence, unspecified, uncomplicated; Z88.7 Allergy status to serum and vaccine; Z91.018 Allergy to other foods; Z91.048 Other nonmedicinal substance allergy status; Z79.899 Other long term (current) drug therapy; Z90.49 Acquired absence of other specified parts of digestive tract; Z80.0 Family history of malignant neoplasm of digestive organs; Z96.89 Presence of other specified functional implants
CPT/HCPCS: 36415; 80053; 82150; 83690; 85025; 81001; 71046; 74018; 76700; 99285; 96374; 96361; J2270

== ENCOUNTER 2019-05-13 13:31 | Emergency (ER) | payer OTHER ==
--- NOTE | 2019-05-13 13:55 | ED ---
Lower Extremity Injury HPI - General Chief Complaint: Extremity Injury, Lower Stated Complaint: knee pain Time Seen by Provider: 05/13/19 13:37 Source: patient, RN notes reviewed, old records reviewed Mode of arrival: ambulatory Limitations: no limitations - History of Present Illness Initial Comments: This Patient is a 44-year-old female, she presents emergency department today for evaluation for left knee pain. Patient reports that last night she slipped, twisting and falling onto her left knee. She has a history of left knee replacement. Her orthopedic doctor is Dr. Howell. Patient states that she has had pain with ambulation. - Related Data Home Medications Medication Instructions Recorded Confirmed Dicyclomine HCl 10 mg PO QID PRN 04/19/18 05/13/19 Simethicone 40 mg/0.6 ml Drops 40 mg PO QID PRN 06/10/18 05/13/19 [Mylicon Drops] Atorvastatin [Lipitor] 20 mg PO HS 05/13/19 05/13/19 Cyclobenzaprine [Flexeril] 10 mg PO HS 05/13/19 05/13/19 Etodolac [Lodine] 400 mg PO BID 05/13/19 05/13/19 Gabapentin 600 mg PO TID 05/13/19 05/13/19 Milnacipran HCl [Savella] 50 mg PO BID 05/13/19 05/13/19 Allergies Allergy/AdvReac Type Severity Reaction Status Date / Time adhesive Allergy Severe Rash/Hives Verified 05/13/19 13:49 tetanus immune globulin Allergy Severe Anaphylaxis Verified 05/13/19 13:49 banana Allergy Mild Rash/Hives Verified 05/13/19 13:49 PAIN MEDS AdvReac SEE Uncoded 05/13/19 13:49 COMMENTS Review of Systems ROS Statement: Those systems with pertinent positive or pertinent negative responses have been documented in the HPI. ROS Other: All systems not noted in ROS Statement are negative. Past Medical History Past Medical History: Osteoarthritis (OA) Additional Past Medical History / Comment(s): Gastritis. HX LOW HR BRIEFLY 03/2018, CARDIAC W/U DONE. HAD GALLSTONE BLOCKING ASHLY DUCT, ERCP W/ STENT DONE AT [facility] 04/2018. HX RECENT JAUNDICE R/T INFLAMMATION LIVER/PANCREAS/KIDNEYS. History of Any Multi-Drug Resistant Organisms: None Reported Past Surgical History: Cholecystectomy, Joint Replacement, Orthopedic Surgery Additional Past Surgical History / Comment(s): TOTAL LEFT KNEE 12/2016. ASHLY CTR. ASHLY ELBOW CUBITAL TUNNEL. Kidney Stone Removal. 03/2018 EGD; ERCP; ERCP W/ STENT PLACED 04/23/18. Past Anesthesia/Blood Transfusion Reactions: Previous Problems w/ Anesthesia Additional Past Anesthesia/Blood Transfusion Reaction / Comment(s): TOOK LONGER TO WAKE UP W/ TOTAL KNEE SURGERY. Past Psychological History: No Psychological Hx Reported Smoking Status: Current every day smoker Past Alcohol Use History: None Reported Past Drug Use History: None Reported - Past Family History Mother Family Medical History: Diabetes Mellitus Additional Family Medical History / Comment(s): Patient reports history of cancer in the family including breast cancer, liver cancer, brain cancer, prostate cancer Father Family Medical History: Diabetes Mellitus Additional Family Medical History / Comment(s): heart patient General Exam - General Exam Comments Initial Comments: 44-year-old female. Alert and oriented 3. Limitations: no limitations General appearance: alert, in no apparent distress Head exam: Present: atraumatic, normocephalic, normal inspection Eye exam: Present: normal appearance, PERRL, EOMI. Absent: scleral icterus, conjunctival injection, periorbital swelling ENT exam: Present: normal exam, mucous membranes moist Neck exam: Present: normal inspection. Absent: tenderness, meningismus, lymphadenopathy Respiratory exam: Present: normal lung sounds bilaterally. Absent: respiratory distress, wheezes, rales, rhonchi, stridor Cardiovascular Exam: Present: regular rate, normal rhythm, normal heart sounds. Absent: systolic murmur, diastolic murmur, rubs, gallop, clicks Extremities exam: Present: normal inspection, full ROM, normal capillary refill. Absent: tenderness, pedal edema, joint swelling, calf tenderness Left Knee exam: Present: full ROM, tenderness ( Pt has tenderness over the medial and lateral aspect of knee. Contusion noted over medial knee. Flexion noted at 20 degrees. Patient has normal 2 plus dorsalis pedis pulse. ). Absent: normal inspection Lower Leg exam: Present: normal inspection, full ROM Ankle exam: Present: normal inspection, full ROM Back exam: Present: normal inspection Neurological exam: Present: alert, oriented X3, CN II-XII intact Psychiatric exam: Present: normal affect, normal mood Skin exam: Present: warm, dry, intact, normal color. Absent: rash Course Vital Signs 05/13/19 13:33 Temperature 98.1 F Pulse Rate 86 Respiratory 20 Rate Blood Pressure 139/79 O2 Sat by Pulse 98 Oximetry Procedures - Orthopedic Splinting/Casting Injury #1 Side: left Upper Extremity Immobilizer: Yemi wrap Lower Extremity Injury Location: knee Lower Extremity Immobilizer: knee immobilizer Other Orthopedic Equipment: crutches Additional Comments: Patient is reevaluated neurovascularly intact. Medical Decision Making - Medical Decision Making Patient is a 44-year-old female presents for his murmur today one day after falling, striking her left knee. She has history of left knee replacement. Patient complains soft tissue swelling and pain with flexion. She has some bruising and tenderness of the medial malleolus. Total knee replacement was done by Dr. Howell fevers ago. She does not follow with him at this time. X- ray was negative for any acute fracture. His generalized soft tissue swelling and small joint effusion. Discussed putting the Patient a knee immobilizer for pain with flexion she can follow-up with fourth toe. Discussed anti-inflammator y medication for pain and icing. Discussed return the Patient for crutches and to be nonweightbearing. ASIANS WERE ANSWERED RETURN PARAMETERS WERE DISCUSSED. - Radiology Data Radiology results: report reviewed Denies soft tissue swelling and small knee effusion. I'll, in appearance of the left total knee arthroplasty. Disposition Clinical Impression: Knee effusion, left, Knee sprain Disposition: HOME SELF-CARE Condition: Good Instructions (If sedation given, give patient instructions): Knee Pain (ED) Additional Instructions: Please use medication as discussed. Please follow up with family doctor if symptoms have not improved over the next two days. Please return to the emergency room if your symptoms increase or worsen or for any other concerns. Is patient prescribed a controlled substance at d/c from ED?: No Referrals: Sanam Jensen MD [Primary Care Provider] - 1-2 days Tremaine Hyde DO [Medical Doctor] - 1-2 days Time of Disposition: 14:43
--- NOTE | 2019-05-13 14:11 | XR ---
EXAMINATION TYPE: XR knee complete LT DATE OF EXAM: 05/13/2019 COMPARISON: NONE HISTORY: 44-year-old female with pain after fall TECHNIQUE: 3 views FINDINGS: Left total knee arthroplasty is demonstrated. Both distal femoral and proximal tibial compo nents of prosthesis appear well seated without prosthetic fracture. Mild generalized soft tissue swel ling. Small knee joint effusion. IMPRESSION: Mild generalized soft tissue swelling and small knee joint effusion. Uncomplicated appearance to the left total knee arthroplasty.
[2019-05-13 15:20] VITALS: BP 122/69; PULSE 18; RESP 81; TEMP 97.9
== END 2019-05-13 15:21 | disposition home or self-care (01) ==
LOC: EC 13:31
DX: S83.92XA Sprain of unspecified site of left knee, initial encounter (principal); M25.462 Effusion, left knee; M19.90 Unspecified osteoarthritis, unspecified site; F17.200 Nicotine dependence, unspecified, uncomplicated; Z96.652 Presence of left artificial knee joint; Z79.899 Other long term (current) drug therapy; Z91.048 Other nonmedicinal substance allergy status; Z91.018 Allergy to other foods; Z88.8 Allergy status to other drugs, medicaments and biological substances; Z88.7 Allergy status to serum and vaccine; W01.0XXA Fall on same level from slipping, tripping and stumbling without subsequent striking against object, initial encounter
CPT/HCPCS: 96372; 99283; 99284

== ENCOUNTER 2019-06-30 10:16 | Emergency (ER) | payer OTHER ==
[2019-06-30 10:22] VITALS: BP 131/79; PULSE 87; RESP 19; TEMP 98
--- NOTE | 2019-06-30 11:21 | ED ---
Extremity Problem HPI - General Chief complaint: Extremity Problem,Nontraumatic Stated complaint: finger won't bend Time Seen by Provider: 06/30/19 11:06 Source: patient Mode of arrival: ambulatory Limitations: no limitations - History of Present Illness Initial comments: patient is a 44-year-old female presenting to the emergency department with a chief complaint of right finger locking. Patient reports the symptoms have been ongoing for about 2 weeks. She reports the finger has been blocked for about the last 4 hours. Patient reports there is pain whenever the fingers snapped back. She reports no previous history of the symptoms. Patient does have arthritis. Patient denies any trauma to the region she denies taking medication to alleviate symptoms. Patient is not diabetic.history of carpal tunnel surgery on that hand. - Related Data Home Medications Medication Instructions Recorded Confirmed Dicyclomine HCl 10 mg PO QID PRN 04/19/18 05/13/19 Simethicone 40 mg/0.6 ml Drops 40 mg PO QID PRN 06/10/18 05/13/19 [Mylicon Drops] Atorvastatin [Lipitor] 20 mg PO HS 05/13/19 05/13/19 Cyclobenzaprine [Flexeril] 10 mg PO HS 05/13/19 05/13/19 Etodolac [Lodine] 400 mg PO BID 05/13/19 05/13/19 Gabapentin 600 mg PO TID 05/13/19 05/13/19 Milnacipran HCl [Savella] 50 mg PO BID 05/13/19 05/13/19 Allergies Allergy/AdvReac Type Severity Reaction Status Date / Time adhesive Allergy Severe Rash/Hives Verified 05/13/19 13:49 tetanus immune globulin Allergy Severe Anaphylaxis Verified 05/13/19 13:49 banana Allergy Mild Rash/Hives Verified 05/13/19 13:49 PAIN MEDS AdvReac SEE Uncoded 05/13/19 13:49 COMMENTS Review of Systems ROS Statement: Those systems with pertinent positive or pertinent negative responses have been documented in the HPI. ROS Other: All systems not noted in ROS Statement are negative. Past Medical History Past Medical History: Osteoarthritis (OA) Additional Past Medical History / Comment(s): Gastritis. HX LOW HR BRIEFLY 03/2018, CARDIAC W/U DONE. HAD GALLSTONE BLOCKING ASHLY DUCT, ERCP W/ STENT DONE AT [facility] 04/2018. HX RECENT JAUNDICE R/T INFLAMMATION LIVER/PANCREAS/KIDNEYS. History of Any Multi-Drug Resistant Organisms: None Reported Past Surgical History: Cholecystectomy, Joint Replacement, Orthopedic Surgery Additional Past Surgical History / Comment(s): TOTAL LEFT KNEE 12/2016. ASH[facility] CTR. ASHLY ELBOW CUBITAL TUNNEL. Kidney Stone Removal. 03/2018 EGD; ERCP; ERCP W/ STENT PLACED 04/23/18. Past Anesthesia/Blood Transfusion Reactions: Previous Problems w/ Anesthesia Additional Past Anesthesia/Blood Transfusion Reaction / Comment(s): TOOK LONGER TO WAKE UP W/ TOTAL KNEE SURGERY. Past Psychological History: No Psychological Hx Reported Smoking Status: Current every day smoker Past Alcohol Use History: None Reported Past Drug Use History: None Reported - Past Family History Mother Family Medical History: Diabetes Mellitus Additional Family Medical History / Comment(s): Patient reports history of cancer in the family including breast cancer, liver cancer, brain cancer, prostate cancer Father Family Medical History: Diabetes Mellitus Additional Family Medical History / Comment(s): heart patient General Exam Limitations: no limitations General appearance: alert, in no apparent distress Head exam: Present: atraumatic, normocephalic, normal inspection Eye exam: Present: normal appearance Pupils: Present: normal accommodation ENT exam: Present: normal exam Neck exam: Present: normal inspection, full ROM Respiratory exam: Present: normal lung sounds bilaterally Cardiovascular Exam: Present: regular rate, normal rhythm, normal heart sounds Extremities exam: Present: normal capillary refill, other (+2 ulnar and radial pulses bilaterally.). Absent: normal inspection (fourth finger right hand flexed. Able to manually extended period. popping sensationwhen attempting to extend), full ROM, tenderness Back exam: Present: normal inspection, full ROM Neurological exam: Present: alert, oriented X3 Psychiatric exam: Present: normal affect, normal mood Skin exam: Present: warm, dry, intact, normal color Course Vital Signs 06/30/19 10:19 Temperature 98.0 F Pulse Rate 87 Respiratory 19 Rate Blood Pressure 131/79 O2 Sat by Pulse 98 Oximetry Procedures - Orthopedic Splinting/Casting Injury #1 Side: right Upper Extremity Injury Location: finger (fourth right finger) Upper Extremity Immobilizer: finger (other) Medical Decision Making - Medical Decision Making patient is a 44-year-old female presenting to the emergency department with a chief complaint of right finger locking. On exam patient appears to be in a flexed position. This looks like a trigger finger. No trauma to the region. No imaging necessary at this time. Patient has minimal painand full flexed or extended position. Patient is still able to flex and extend it although does need manual extension. Finger splint applied. Patient advised to follow-up with mechanical engineering specialist. She states she receives an orthopedic doctor for her knee arthroplasty. She will elect to follow-up with him. Strict return parameters were thoroughly discussed with patient was understanding and agreeable. Case discussed with physician. Disposition Clinical Impression: Trigger finger, right ring finger Disposition: HOME SELF-CARE Condition: Stable Instructions (If sedation given, give patient instructions): Trigger Finger (ED) Additional Instructions: Please follow with orthopedics. Please return to emergency department if symptoms worsen. Alternate between Tylenol and ibuprofen for pain control. Is patient prescribed a controlled substance at d/c from ED?: No Referrals: Sanam Jensen MD [Primary Care Provider] - 1-2 days Time of Disposition: 11:21
== END 2019-06-30 11:32 | disposition home or self-care (01) ==
LOC: EC 10:16
DX: M65.341 Trigger finger, right ring finger (principal); M19.90 Unspecified osteoarthritis, unspecified site; F17.200 Nicotine dependence, unspecified, uncomplicated; Z79.899 Other long term (current) drug therapy; Z91.048 Other nonmedicinal substance allergy status; Z88.7 Allergy status to serum and vaccine; Z91.018 Allergy to other foods; Z88.6 Allergy status to analgesic agent; Z96.652 Presence of left artificial knee joint
CPT/HCPCS: 99283

== ENCOUNTER 2020-05-22 09:33 | Emergency (ER) | payer OTHER ==
[2020-05-22 09:49] VITALS: TEMP 96.8
[2020-05-22] MEDS ORDERED: ONDANSETRON 4 MG/2 ML VIAL IVP STA (10:03)
[2020-05-22] MEDS ORDERED: SODIUM CHLORIDE 0.9% 1,000 ML IV STA (10:03)
[2020-05-22] MEDS ORDERED: MORPHINE SULFATE 4 MG/ML SYRINGE IV STA (10:03)
--- NOTE | 2020-05-22 10:06 | ED ---
Abdominal Pain HPI - General Chief Complaint: Abdominal Pain Stated Complaint: left side abd pain/nausea Time Seen by Provider: 05/22/20 09:51 Source: patient Mode of arrival: ambulatory Limitations: no limitations - History of Present Illness Initial Comments: Patient is a 45-year-old female presenting to emergency Department with complaints of left sided abdominal pain that started 2 days ago. Patient states she is also having some nausea and vomiting with this as well. States the pain was mild 2 days ago and has been steadily increasing since. The pain is located in the left lower quadrant with some radiation upward. She admits to history of bile duct stent placement 2 years ago, no other abdominal surgeries. She continues to feel nauseous. She didn't take anything for pain. She's never had pain like this before. She denies any fever, chills, chest pain or shortness of breath. She denies any urinary complaints. She did have some loose stools yesterday. She is no further complaints at this time. Upon arrival to the ER for vital signs are stable. - Related Data Home Medications Medication Instructions Recorded Confirmed Simethicone 40 mg/0.6 ml Drops 40 mg PO QID PRN 06/10/18 05/22/20 [Mylicon Drops] Aspirin 81 mg PO DAILY 05/22/20 05/22/20 Allergies Allergy/AdvReac Type Severity Reaction Status Date / Time adhesive Allergy Severe Rash/Hives Verified 05/22/20 10:47 tetanus immune globulin Allergy Severe Anaphylaxis Verified 05/22/20 10:47 banana Allergy Mild Rash/Hives Verified 05/22/20 10:47 PAIN MEDS AdvReac SEE Uncoded 05/22/20 10:47 COMMENTS Review of Systems ROS Statement: Those systems with pertinent positive or pertinent negative responses have been documented in the HPI. ROS Other: All systems not noted in ROS Statement are negative. Past Medical History Past Medical History: Osteoarthritis (OA) Additional Past Medical History / Comment(s): Gastritis. HAD GALLSTONE BLOCKING ASHLY DUCT, ERCP W/ STENT DONE AT [facility] 04/2018. HX RECENT JAUNDICE R/T INFLAMMATION LIVER/PANCREAS/KIDNEYS. History of Any Multi-Drug Resistant Organisms: None Reported Past Surgical History: Cholecystectomy, Joint Replacement, Orthopedic Surgery Additional Past Surgical History / Comment(s): TOTAL LEFT KNEE 12/2016. [facility]. ASHLY ELBOW CUBITAL TUNNEL. Kidney Stone Removal. 03/2018 EGD; ERCP; ERCP W/ STENT PLACED 04/23/18. Past Anesthesia/Blood Transfusion Reactions: Previous Problems w/ Anesthesia Additional Past Anesthesia/Blood Transfusion Reaction / Comment(s): TOOK LONGER TO WAKE UP W/ TOTAL KNEE SURGERY. Past Psychological History: No Psychological Hx Reported Smoking Status: Current every day smoker Past Alcohol Use History: None Reported Past Drug Use History: None Reported - Past Family History Mother Family Medical History: Diabetes Mellitus Additional Family Medical History / Comment(s): Patient reports history of cancer in the family including breast cancer, liver cancer, brain cancer, prostate cancer Father Family Medical History: Diabetes Mellitus Additional Family Medical History / Comment(s): heart patient General Exam - General Exam Comments Initial Comments: GENERAL: Patient is well-developed and well-nourished. Patient is nontoxic and in mild distress. HEAD: Atraumatic, normocephalic. EYES: Pupils equal round and reactive to light, extraocular movements intact, sclera a nicteric, conjunctiva are normal. Eyelids were unremarkable. ENT: TMs normal, nares patent, oropharynx clear without exudates. Moist mucous membranes. NECK: Normal range of motion, supple without lymphadenopathy or JVD. LUNGS: Unlabored respirations. Breath sounds clear to auscultation bilaterally and equal. No wheezes rales or rhonchi. HEART: Regular rate and rhythm without murmurs, rubs or gallops. ABDOMEN: Tender to palpation of the left lower quadrant, left-sided abdomen. Soft, normoactive bowel sounds. No guarding, no rebound. No masses appreciated. : Deferred MUSCULOSKELETAL: Normal extremities with adequate strength and normal range of motion, no pitting or edema. No clubbing or cyanosis. NEUROLOGICAL: Patient is alert and oriented x 3. Motor and sensory are also intact. Cranial nerves II through XII grossly intact. Symmetrical smile. Normal speech, normal gait. PSYCH: Normal mood, normal affect. SKIN: Warm, Dry, normal turgor, no rashes or lesions noted. Limitations: no limitations Course Vital Signs 05/22/20 05/22/20 09:44 10:57 Temperature 96.8 F L Pulse Rate 89 66 Respiratory 18 18 Rate Blood Pressure 120/70 129/68 O2 Sat by Pulse 97 98 Oximetry Medical Decision Making - Medical Decision Making Patient is a 45-year-old female here for left lower quadrant pain 2 days. Positive nausea and vomiting. Vital signs are stable. Labs showed normal white count, normal lactic acid, lipase was normal. Urine shows no evidence of infection. CT shows no significant new or acute findings, no signs of acute diverticulitis. I did give patient some pain meds as well as some fluids. She states her pain is improved. I discussed these findings with the patient, her symptoms could be related to viral gastroenteritis. Recommended continuing to take small sips of fluid, I will send her home with a tramadol starter pack in case for more severe pain. She follow-up with her PCP. She is in agreement with this plan of care. Return parameters were discussed with the patient and she verbalized understanding. Case discussed with Dr. Meehan. - Lab Data Result diagrams: 05/22/20 10:48 05/22/20 10:48 Lab Results 05/22/20 05/22/20 05/22/20 Range/Units 10:48 10:48 10:48 WBC 10.0 (3.8-10.6) k/uL RBC 4.55 (3.80-5.40) m/uL Hgb 13.9 (11.4-16.0) gm/dL Hct 42.0 (34.0-46.0) % MCV 92.2 (80.0-100.0) fL MCH 30.6 (25.0-35.0) pg MCHC 33.2 (31.0-37.0) g/dL RDW 13.5 (11.5-15.5) % Plt Count 238 (150-450) k/uL Neutrophils % 70 % Lymphocytes % 25 % Monocytes % 2 % Eosinophils % 2 % Basophils % 1 % Neutrophils # 7.1 (1.3-7.7) k/uL Lymphocytes # 2.5 (1.0-4.8) k/uL Monocytes # 0.2 (0-1.0) k/uL Eosinophils # 0.2 (0-0.7) k/uL Basophils # 0.1 (0-0.2) k/uL PT 9.6 (9.0-12.0) sec INR 0.9 (<1.2) APTT 23.7 (22.0-30.0) sec Sodium (137-145) mmol/L Potassium (3.5-5.1) mmol/L Chloride (98-107) mmol/L Carbon Dioxide (22-30) mmol/L Anion Gap mmol/L BUN (7-17) mg/dL Creatinine (0.52-1.04) mg/dL Est GFR (CKD-EPI)AfAm (>60 ml/min/1.73 sqM) Est GFR (CKD-EPI)NonAf (>60 ml/min/1.73 sqM) Glucose (74-99) mg/dL Plasma Lactic Acid Josef (0.7-2.0) mmol/L Calcium (8.4-10.2) mg/dL Total Bilirubin (0.2-1.3) mg/dL AST (14-36) U/L ALT (4-34) U/L Alkaline Phosphatase (38-126) U/L Total Protein (6.3-8.2) g/dL Albumin (3.5-5.0) g/dL Amylase (30-110) U/L Lipase (23-300) U/L Urine Color Light Yellow Urine Appearance Clear (Clear) Urine pH 7.5 (5.0-8.0) Ur Specific [place] 1.009 (1.001-1.035) Urine Protein Negative (Negative) Urine Glucose (UA) Negative (Negative) Urine Ketones Negative (Negative) Urine Blood Negative (Negative) Urine Nitrite Negative (Negative) Urine Bilirubin Negative (Negative) Urine Urobilinogen <2.0 (<2.0) mg/dL Ur Leukocyte Esterase Negative (Negative) 05/22/20 05/22/20 Range/Units 10:48 10:48 WBC (3.8-10.6) k/uL RBC (3.80-5.40) m/uL Hgb (11.4-16.0) gm/dL Hct (34.0-46.0) % MCV (80.0-100.0) fL MCH (25.0-35.0) pg MCHC (31.0-37.0) g/dL RDW (11.5-15.5) % Plt Count (150-450) k/uL Neutrophils % % Lymphocytes % % Monocytes % % Eosinophils % % Basophils % % Neutrophils # (1.3-7.7) k/uL Lymphocytes # (1.0-4.8) k/uL Monocytes # (0-1.0) k/uL Eosinophils # (0-0.7) k/uL Basophils # (0-0.2) k/uL PT (9.0-12.0) sec INR (<1.2) APTT (22.0-30.0) sec Sodium 136 L (137-145) mmol/L Potassium 5.1 (3.5-5.1) mmol/L Chloride 107 (98-107) mmol/L Carbon Dioxide 22 (22-30) mmol/L Anion Gap 7 mmol/L BUN 9 (7-17) mg/dL Creatinine 0.65 (0.52-1.04) mg/dL Est GFR (CKD-EPI)AfAm >90 (>60 ml/min/1.73 sqM) Est GFR (CKD-EPI)NonAf >90 (>60 ml/min/1.73 sqM) Glucose 100 H (74-99) mg/dL Plasma Lactic Acid Josef 1.0 (0.7-2.0) mmol/L Calcium 9.9 (8.4-10.2) mg/dL Total Bilirubin 1.0 (0.2-1.3) mg/dL AST 32 (14-36) U/L ALT 13 (4-34) U/L Alkaline Phosphatase 92 (38-126) U/L Total Protein 7.5 (6.3-8.2) g/dL Albumin 4.1 (3.5-5.0) g/dL Amylase 37 (30-110) U/L Lipase 27 (23-300) U/L Urine Color Urine Appearance (Clear) Urine pH (5.0-8.0) Ur Specific [place] (1.001-1.035) Urine Protein (Negative) Urine Glucose (UA) (Negative) Urine Ketones (Negative) Urine Blood (Negative) Urine Nitrite (Negative) Urine Bilirubin (Negative) Urine Urobilinogen (<2.0) mg/dL Ur Leukocyte Esterase (Negative) Disposition Clinical Impression: Left sided abdominal pain, Nausea & vomiting Disposition: HOME SELF-CARE Condition: Stable Instructions (If sedation given, give patient instructions): Abdominal Pain (ED) Additional Instructions: Please return to the Emergency Department if symptoms worsen or any other concerns. CT and lab work today was normal. Take small sips of water frequently, follow-up with PCP. Is patient prescribed a controlled substance at d/c from ED?: No Referrals: Sanam Jensen MD [Primary Care Provider] - 1-2 days
[2020-05-22 11:01] LABS: Basophils # (A) 0.1 k/uL (0-0.2); Basophils % (A) 1 %; Eosinophils # (A) 0.2 k/uL (0-0.7); Eosinophils % (A) 2 %; HGB 13.9 gm/dL (11.4-16.0); Lymphocytes # (A) 2.5 k/uL (1.0-4.8); Lymphocytes % (A) 25 %; MCH 30.6 pg (25.0-35.0); MCHC 33.2 g/dL (31.0-37.0); MCV 92.2 fL (80.0-100.0); Mean Platelet Volume 7.8; Monocytes # (A) 0.2 k/uL (0-1.0); Monocytes % (A) 2 %; Neutrophils # (A) 7.1 k/uL (1.3-7.7); Neutrophils % (A) 70 %; Platelet Count 238 k/uL (150-450); RBC 4.55 m/uL (3.80-5.40); RDW 13.5 % (11.5-15.5)
[2020-05-22 11:09] LABS: Appearance,Urine Clear (Clear); Bilirubin,Urine Negative (Negative); Blood,Urine Negative (Negative); Color,Urine Light Yellow; Glucose,Urine (UA) Negative (Negative); Ketones,Urine Negative (Negative); Leukocyte Esterase,Urine Negative (Negative); Nitrite,Urine Negative (Negative); PH, Urine 7.5 (5.0-8.0); Protein,Urine Negative (Negative); Specific Gravity,Urine 1.009 (1.001-1.035); Urobilinogen,Urine <2.0 mg/dL (<2.0)
[2020-05-22 11:11] LABS: ALT 13 U/L (4-34); AST 32 U/L (14-36); African American GFR (CKD) >90 (>60 ml/min/1.73 sqM); Albumin 4.1 g/dL (3.5-5.0); Alkaline Phosphatase 92 U/L (38-126); Amylase 37 U/L (30-110); Anion Gap 7 mmol/L; Blood Urea Nitrogen 9 mg/dL (7-17); Calcium 9.9 mg/dL (8.4-10.2); Carbon Dioxide 22 mmol/L (22-30); Chloride 107 mmol/L (98-107); Glucose 100 mg/dL (74-99); Lipase 27 U/L (23-300); Non-African American GFR(CKD) >90 (>60 ml/min/1.73 sqM); Sodium 136 mmol/L (137-145); Total Protein 7.5 g/dL (6.3-8.2)
[2020-05-22 11:14] LABS: Potassium 5.1 mmol/L (3.5-5.1)
--- NOTE | 2020-05-22 11:22 | CT ---
EXAMINATION TYPE: CT abdomen pelvis w con DATE OF EXAM: 05/22/2020 HISTORY: LLQ pain CT DLP: 1593.4mGycm Automated Exposure Control for Dose Reduction was Utilized. CONTRAST: CT scan of the abdomen and pelvis is performed without oral and with IV Contrast, patient injected wi th 100 mL of Isovue 300. COMPARISON: CT April 24, 2018 FINDINGS: LUNG BASES: No significant abnormality is appreciated. LIVER/GB: Cholecystectomy clips are redemonstrated. PANCREAS: No significant abnormality is seen. SPLEEN: No significant abnormality is seen. ADRENALS: No significant abnormality is seen. KIDNEYS: Symmetric cortical medullary uptake and excretion without hydronephrosis seen bilaterally. BOWEL: Normal-appearing appendix from base of cecum. No suspicious small or large bowel dilatation. M ild wall thickening in the region of the hepatic flexure present product of poor distention. Occasion al diverticula in the left colon. No CT evidence for acute diverticulitis. UTERUS/ADNEXA: Anteverted uterus. Scattered bilateral pelvic phleboliths. Ovaries normal in size with prominent follicles and/or small cysts. LYMPH NODES: No greater than 1cm abdominal or pelvic lymph nodes are appreciated. OSSEOUS STRUCTURES: No significant abnormality is seen. OTHER: No significant additional abnormality is seen. IMPRESSION: No significant new or acute finding is seen to account for patient's clinical symptoms.
[2020-05-22 11:24] LABS: INR 0.9 (<1.2); Partial Thromboplastin Time 23.7 sec (22.0-30.0); Prothrombin Time 9.6 sec (9.0-12.0)
[2020-05-22] MEDS ORDERED: traMADol 50 MG STARTER PACK 3 TAB BTL PO STA (11:53)
[2020-05-22 12:18] VITALS: BP 119/68; PULSE 74; RESP 16
== END 2020-05-22 12:21 | disposition home or self-care (01) ==
LOC: EC 09:33
DX: R10.32 Left lower quadrant pain (principal); R11.2 Nausea with vomiting, unspecified; F17.200 Nicotine dependence, unspecified, uncomplicated; Z79.82 Long term (current) use of aspirin; Z91.048 Other nonmedicinal substance allergy status; Z91.018 Allergy to other foods; Z88.7 Allergy status to serum and vaccine; Z88.8 Allergy status to other drugs, medicaments and biological substances
CPT/HCPCS: 36415; 80053; 82150; 83605; 83690; 85025; 85610; 85730; 81003; 74177; 99284; 96374; 96375; 96361; J2270; J2405; Q9967

== ENCOUNTER 2021-01-24 16:32 | Emergency (ER) | payer OTHER ==
[2021-01-24 16:46] VITALS: RESP 18; TEMP 98.9
[2021-01-24] MEDS ORDERED: SODIUM CHLORIDE 0.9% 1,000 ML IV STA (17:13)
[2021-01-24] MEDS ORDERED: METOCLOPRAMIDE 5 MG/ML 2 ML VIAL IVP STA (17:13)
[2021-01-24] MEDS ORDERED: MORPHINE SULFATE 4 MG/ML SYRINGE IV STA (17:13)
[2021-01-24] MEDS ORDERED: diphenhydrAMINE 50 MG/ML 1 ML VIAL IVP STA (17:13)
[2021-01-24] MEDS ORDERED: ASPIRIN 81 MG PO STA (17:15)
[2021-01-24 17:37] LABS: Basophils # (A) 0.1 k/uL (0-0.2); Basophils % (A) 1 %; Eosinophils # (A) 0.1 k/uL (0-0.7); Eosinophils % (A) 1 %; HCT 40.7 % (34.0-46.0); HGB 13.4 gm/dL (11.4-16.0); Lymphocytes # (A) 2.7 k/uL (1.0-4.8); Lymphocytes % (A) 23 %; MCHC 32.8 g/dL (31.0-37.0); MCV 91.5 fL (80.0-100.0); Mean Platelet Volume 7.1; Monocytes # (A) 0.3 k/uL (0-1.0); Monocytes % (A) 3 %; Neutrophils # (A) 8.6 k/uL (1.3-7.7); Neutrophils % (A) 72 %; Platelet Count 244 k/uL (150-450); RBC 4.45 m/uL (3.80-5.40); RDW 14.4 % (11.5-15.5)
[2021-01-24 17:46] LABS: Appearance,Urine Cloudy (Clear); Bacteria,Urine Occasional /hpf; Bilirubin,Urine Negative (Negative); Blood,Urine Large (Negative); Color,Urine Red; Glucose,Urine (UA) Negative (Negative); Ketones,Urine Trace (Negative); Leukocyte Esterase,Urine Large (Negative); Mucus,Urine Moderate /hpf; Nitrite,Urine Negative (Negative); Protein,Urine 1+ (Negative); RBC,Urine >182 /hpf (0-5); Specific Gravity,Urine 1.025 (1.001-1.035); Squamous Epithelial Cell,Urine 27 /hpf (0-4); Urobilinogen,Urine <2.0 mg/dL (<2.0); WBC,Urine 121 /hpf (0-5)
[2021-01-24 17:48] LABS: ALT 12 U/L (4-34); AST 20 U/L (14-36); African American GFR (CKD) >90 (>60 ml/min/1.73 sqM); Albumin 4.2 g/dL (3.5-5.0); Alkaline Phosphatase 97 U/L (38-126); Anion Gap 5 mmol/L; Blood Urea Nitrogen 9 mg/dL (7-17); Calcium 9.9 mg/dL (8.4-10.2); Carbon Dioxide 26 mmol/L (22-30); Chloride 107 mmol/L (98-107); Glucose 95 mg/dL (74-99); Lipase 31 U/L (23-300); Non-African American GFR(CKD) >90 (>60 ml/min/1.73 sqM); Potassium 3.9 mmol/L (3.5-5.1); Sodium 138 mmol/L (137-145); Total Bilirubin 0.3 mg/dL (0.2-1.3); Total Protein 7.2 g/dL (6.3-8.2)
[2021-01-24 17:52] LABS: INR 0.9 (<1.2); Prothrombin Time 9.6 sec (9.0-12.0)
[2021-01-24 18:13] LABS: Partial Thromboplastin Time 21.7 sec (22.0-30.0)
--- NOTE | 2021-01-24 18:31 | XR ---
EXAMINATION TYPE: XR chest 1V portable DATE OF EXAM: 01/24/2021 COMPARISON: 06/10/2018 HISTORY: Abdominal pain TECHNIQUE: Single frontal view of the chest is obtained. FINDINGS AND IMPRESSION: Suboptimal technique. Patchy and nodular bibasilar opacities are demonstrated may represent multifocal pneumonia. Repeat fr ontal and lateral radiograph in 3 months after appropriate treatment recommended to document resoluti on. No pneumothorax or pleural effusion. The cardiomediastinal silhouette is within normal limits. No acute osseous abnormality.
--- NOTE | 2021-01-24 19:03 | ED ---
General Adult HPI - General Chief complaint: Abdominal Pain Stated complaint: Abd pain Time Seen by Provider: 01/24/21 16:48 Source: patient, family Mode of arrival: ambulatory - History of Present Illness Initial comments: Patient is a 45-year-old female with past medical history remarkable for gastritis, cholecystectomy, recent bile duct occlusion back in 2018 requiring ERCP with stone removal who presents emergency Department complaining of a multiweek history of abdominal pain as well as left shoulder pain. Patient states she is having left-sided abdominal pain primarily in the left upper and left lower quadrants as well as left shoulder pain. His progressively gotten worse. She is feeling nauseous. Over the last few days she has been able to tolerate by mouth intake over this time. She denies any chest pain, shortness of breath. She denies any headaches, weakness, numbness. States that previously, her pain was on the right side, so she initially tried to wait for to improve but has not. She denies any bilious or bloody emesis. She denies any change in her bowel movements and denies any bloody stool. She has no other acute complaints at this time. Patient presents with a concern for her abdominal pain. Denies injury or trauma to the shoulder, pain developed after abdominal pain. - Related Data Home Medications Medication Instructions Recorded Confirmed Aspirin EC [Ecotrin] 325 mg PO DAILY 01/24/21 01/24/21 Previous Rx's Medication Instructions Recorded Famotidine [Pepcid] 20 mg PO DAILY #14 tablet 01/24/21 Ondansetron Odt [Zofran Odt] 4 mg PO Q8HR PRN #9 tab 01/24/21 Sulfamethox-Tmp 800-160Mg [Bactrim 1 tab PO Q12HR 14 Days #28 tab 01/24/21 DS 800-160 mg] Allergies Allergy/AdvReac Type Severity Reaction Status Date / Time adhesive Allergy Severe Rash/Hives Verified 01/24/21 17:45 tetanus immune globulin Allergy Severe Anaphylaxis Verified 01/24/21 17:45 banana Allergy Mild Rash/Hives Verified 01/24/21 17:45 PAIN MEDS AdvReac SEE Uncoded 01/24/21 16:47 COMMENTS Review of Systems ROS Statement: Those systems with pertinent positive or pertinent negative responses have been documented in the HPI. Review of Systems: CONST: Denies fever EYES: Denies blurry vision ENT: Denies nasal congestion C/V: Denies Chest pain RESP: Denies shortness of breath GI: Endorses abdominal pain : Denies dysuria SKIN: Denies rash. MSK: Endorses left shoulder pain NEURO: Denies headache ROS Other: All systems not noted in ROS Statement are negative. Past Medical History Past Medical History: Osteoarthritis (OA) Additional Past Medical History / Comment(s): Gastritis. HAD GALLSTONE BLOCKING ASHLY DUCT, ERCP W/ STENT DONE AT THE [facility] 04/2018. HX RECENT JAUNDICE R/T INF LAMMATION LIVER/PANCREAS/KIDNEYS. History of Any Multi-Drug Resistant Organisms: None Reported Past Surgical History: Cholecystectomy, Joint Replacement, Orthopedic Surgery Additional Past Surgical History / Comment(s): TOTAL LEFT KNEE 12/2016. [facility]. ASHLY ELBOW CUBITAL TUNNEL. Kidney Stone Removal. 03/2018 EGD; ERCP; ERCP W/ STENT PLACED 04/23/18. Past Anesthesia/Blood Transfusion Reactions: Previous Problems w/ Anesthesia Additional Past Anesthesia/Blood Transfusion Reaction / Comment(s): TOOK LONGER TO WAKE UP W/ TOTAL KNEE SURGERY. Past Psychological History: No Psychological Hx Reported Smoking Status: Current every day smoker Past Alcohol Use History: None Reported Past Drug Use History: None Reported - Past Family History Mother Family Medical History: Diabetes Mellitus Additional Family Medical History / Comment(s): Patient reports history of cancer in the family including breast cancer, liver cancer, brain cancer, prostate cancer Father Family Medical History: Diabetes Mellitus Additional Family Medical History / Comment(s): heart patient General Exam - General Exam Comments Initial Comments: General: Appears in mild distress secondary to abdominal discomfort. HEAD: Normal with no signs of head trauma. EYES: PERRLA, EOMI, conjunctiva normal, no discharge. ENT: Hearing Grossly intact, mildly dry mucous membranes. RESPIRATORY: Clear breath sounds bilaterally. No wheezes, rales, or rhonchi. C/V: Regular rate and rhythm. S1 and S2 auscultated, no edema, peripheral pulses 2+ and intact throughout ABD: Abdomen is soft, nondistended. Patient is tender to palpation in the left upper and left lower quadrant. She has mild right CVA tenderness to percussion. There is mild guarding. There are no peritoneal signs. Exams producing pain out of proportion to findings. EXT: Normal range of motion, no obvious deformity SKIN: No rashes or lesions observed on exposed skin. NEURO: Alert and oriented 4. Course Vital Signs 01/24/21 01/24/21 01/24/21 16:43 19:09 21:09 Temperature 98.9 F Pulse Rate 95 86 80 Respiratory 18 18 18 Rate Blood Pressure 128/74 117/67 108/67 O2 Sat by Pulse 98 96 98 Oximetry Medical Decision Making - Medical Decision Making Based on the patient's presentation and physical exam, I am concerned for possible acute intra-abdominal process for the patient. There is also concern for possible cardiac etiology with her left shoulder pain as well as epigastric discomfort. Therefore we will obtain abdominal injury studies including urinalysis as well as a cardiac workup. Due to her significant abdominal discomfort and her history, we will obtain CT abdomen and pelvis as well. Troponin, basic labs, EKG and urinalysis will be obtained. She'll be sent medically treated with 1 L fluid bolus as well as IV morphine, reglan, Benadryl and will be given an aspirin. She'll be connected to continuous cardiac exercise physiologist while she is here in the emergency department. She was in agreement with this plan. Due to pain and being out of proportion to physical exam, there is mild concern for possible ischemic colitis and therefore I will obtain a lactate level for screening. Patient's x-ray studies are remarkable for a mild leukocytosis of 12.0, a negative troponin, doesn't urinalysis that may be contaminated but also she symptomatic with a large amount of leukesterase in addition to large number of WBCs. Patient's chest x-ray revealed possible pneumonia, however she is asymptomatic nephritis likely nodular opacities. EKG revealed no acute signs of ischemia. CT abdomen and pelvis revealed no acute intra-abdominal process. There is some atelectasis as well as a left lower lobe pulmonary nodule appears to be new. I discussed with the patient the findings of her laboratory studies and imaging. I informed her about the pulmonary nodule may need for follow-up with her PCP and monitoring with repeat imaging. She was in agreement with the plan. She is tolerating by mouth intake this time. She feels improved. I explained that she is likely experiencing a UTI/possible pyelonephritis. She exposed understanding and was in agreement with this plan. She will be given a dose of Bactrim in the emergency Department management a prescription for Bactrim. She was advised to return strict return precautions. She was in agreement with this plan. I will provide the patient with a prescription for Bactrim twice a day for 14 days, Sakina Flanagan. I instructed the patient to follow up with their PCP in the next 3 days. I explained that the patient should return to the emergency department if they experience any worsening symptoms. Strict return precautions were discussed with the patient. The patient expressed understanding of these instructions. I answered all questions that the patient had. The patient was discharged home in improved condition with their prescriptions and follow up information. - Lab Data Result diagrams: 01/24/21 17:27 01/24/21 17:27 Lab Results 01/24/21 01/24/21 01/24/21 Range/Units 17:27 17: 17: WBC 12.0 H (3.8-10.6) k/uL RBC 4.45 (3.80-5.40) m/uL Hgb 13.4 (11.4-16.0) gm/dL Hct 40.7 (34.0-46.0) % MCV 91.5 (80.0-100.0) fL MCH 30.0 (25.0-35.0) pg MCHC 32.8 (31.0-37.0) g/dL RDW 14.4 (11.5-15.5) % Plt Count 244 (150-450) k/uL MPV 7.1 Neutrophils % 72 % Lymphocytes % 23 % Monocytes % 3 % Eosinophils % 1 % Basophils % 1 % Neutrophils # 8.6 H (1.3-7.7) k/uL Lymphocytes # 2.7 (1.0-4.8) k/uL Monocytes # 0.3 (0-1.0) k/uL Eosinophils # 0.1 (0-0.7) k/uL Basophils # 0.1 (0-0.2) k/uL PT 9.6 (9.0-12.0) sec INR 0.9 (<1.2) APTT 21.7 L (22.0-30.0) sec Sodium 138 (137-145) mmol/L Potassium 3.9 (3.5-5.1) mmol/L Chloride 107 (98-107) mmol/L Carbon Dioxide 26 (22-30) mmol/L Anion Gap 5 mmol/L BUN 9 (7-17) mg/dL Creatinine 0.57 (0.52-1.04) mg/dL Est GFR (CKD-EPI)AfAm >90 (>60 ml/min/1.73 sqM) Est GFR (CKD-EPI)NonAf >90 (>60 ml/min/1.73 sqM) Glucose 95 (74-99) mg/dL Plasma Lactic Acid Josef (0.7-2.0) mmol/L Calcium 9.9 (8.4-10.2) mg/dL Total Bilirubin 0.3 (0.2-1.3) mg/dL AST 20 (14-36) U/L ALT 12 (4-34) U/L Alkaline Phosphatase 97 (38-126) U/L Troponin I (0.000-0.034) ng/mL Total Protein 7.2 (6.3-8.2) g/dL Albumin 4.2 (3.5-5.0) g/dL Lipase 31 (23-300) U/L Urine Color Urine Appearance (Clear) Urine pH (5.0-8.0) Ur Specific [place] (1.001-1.035) Urine Protein (Negative) Urine Glucose (UA) (Negative) Urine Ketones (Negative) Urine Blood (Negative) Urine Nitrite (Negative) Urine Bilirubin (Negative) Urine Urobilinogen (<2.0) mg/dL Ur Leukocyte Esterase (Negative) Urine RBC (0-5) /hpf Urine WBC (0-5) /hpf Ur Squamous Epith Cells (0-4) /hpf Urine Bacteria (None) /hpf Urine Mucus (None) /hpf Urine HCG, Qual (Not Detectd) 01/24/21 01/24/21 01/24/21 Range/Units 17:27 17:27 17:27 WBC (3.8-10.6) k/uL RBC (3.80-5.40) m/uL Hgb (11.4-16.0) gm/dL Hct (34.0-46.0) % MCV (80.0-100.0) fL MCH (25.0-35.0) pg MCHC (31.0-37.0) g/dL RDW (11.5-15.5) % Plt Count (150-450) k/uL MPV Neutrophils % % Lymphocytes % % Monocytes % % Eosinophils % % Basophils % % Neutrophils # (1.3-7.7) k/uL Lymphocytes # (1.0-4.8) k/uL Monocytes # (0-1.0) k/uL Eosinophils # (0-0.7) k/uL Basophils # (0-0.2) k/uL PT (9.0-12.0) sec INR (<1.2) APTT (22.0-30.0) sec Sodium (137-145) mmol/L Potassium (3.5-5.1) mmol/L Chloride (98-107) mmol/L Carbon Dioxide (22-30) mmol/L Anion Gap mmol/L BUN (7-17) mg/dL Creatinine (0.52-1.04) mg/dL Est GFR (CKD-EPI)AfAm (>60 ml/min/1.73 sqM) Est GFR (CKD-EPI)NonAf (>60 ml/min/1.73 sqM) Glucose (74-99) mg/dL Plasma Lactic Acid Josef 1.7 (0.7-2.0) mmol/L Calcium (8.4-10.2) mg/dL Total Bilirubin (0.2-1.3) mg/dL AST (14-36) U/L ALT (4-34) U/L Alkaline Phosphatase (38-126) U/L Troponin I (0.000-0.034) ng/mL Total Protein (6.3-8.2) g/dL Albumin (3.5-5.0) g/dL Lipase (23-300) U/L Urine Color Red Urine Appearance Cloudy H (Clear) Urine pH 6.0 (5.0-8.0) Ur Specific [place] 1.025 (1.001-1.035) Urine Protein 1+ H (Negative) Urine Glucose (UA) Negative (Negative) Urine Ketones Trace H (Negative) Urine Blood Large H (Negative) Urine Nitrite Negative (Negative) Urine Bilirubin Negative (Negative) Urine Urobilinogen <2.0 (<2.0) mg/dL Ur Leukocyte Esterase Large H (Negative) Urine RBC >182 H (0-5) /hpf Urine WBC 121 H (0-5) /hpf Ur Squamous Epith Cells 27 H (0-4) /hpf Urine Bacteria Occasional H (None) /hpf Urine Mucus Moderate H (None) /hpf Urine HCG, Qual Not Detected (Not Detectd) 01/24/21 Range/Units 17:27 WBC (3.8-10.6) k/uL RBC (3.80-5.40) m/uL Hgb (11.4-16.0) gm/dL Hct (34.0-46.0) % MCV (80.0-100.0) fL MCH (25.0-35.0) pg MCHC (31.0-37.0) g/dL RDW (11.5-15.5) % Plt Count (150-450) k/uL MPV Neutrophils % % Lymphocytes % % Monocytes % % Eosinophils % % Basophils % % Neutrophils # (1.3-7.7) k/uL Lymphocytes # (1.0-4.8) k/uL Monocytes # (0-1.0) k/uL Eosinophils # (0-0.7) k/uL Basophils # (0-0.2) k/uL PT (9.0-12.0) sec INR (<1.2) APTT (22.0-30.0) sec Sodium (137-145) mmol/L Potassium (3.5-5.1) mmol/L Chloride (98-107) mmol/L Carbon Dioxide (22-30) mmol/L Anion Gap mmol/L BUN (7-17) mg/dL Creatinine (0.52-1.04) mg/dL Est GFR (CKD-EPI)AfAm (>60 ml/min/1.73 sqM) Est GFR (CKD-EPI)NonAf (>60 ml/min/1.73 sqM) Glucose (74-99) mg/dL Plasma Lactic Acid Josef (0.7-2.0) mmol/L Calcium (8.4-10.2) mg/dL Total Bilirubin (0.2-1.3) mg/dL AST (14-36) U/L ALT (4-34) U/L Alkaline Phosphatase (38-126) U/L Troponin I <0.012 (0.000-0.034) ng/mL Total Protein (6.3-8.2) g/dL Albumin (3.5-5.0) g/dL Lipase (23-300) U/L Urine Color Urine Appearance (Clear) Urine pH (5.0-8.0) Ur Specific [place] (1.001-1.035) Urine Protein (Negative) Urine Glucose (UA) (Negative) Urine Ketones (Negative) Urine Blood (Negative) Urine Nitrite (Negative) Urine Bilirubin (Negative) Urine Urobilinogen (<2.0) mg/dL Ur Leukocyte Esterase (Negative) Urine RBC (0-5) /hpf Urine WBC (0-5) /hpf Ur Squamous Epith Cells (0-4) /hpf Urine Bacteria (None) /hpf Urine Mucus (None) /hpf Urine HCG, Qual (Not Detectd) - EKG Data -: EKG Interpreted by Me EKG Comments: 12-lead Electrocardiogram Interpretation Note EKG was reviewed and interpreted by myself. 12-lead ECG performed at 1745 is interpreted by me as revealing normal sinus rhythm at a rate of 85 beats per minute. [place] is normal. LA interval is 134 ms, QRS duration 74 ms, QTc is 466 seconds.. There is a T-wave inversion in lead III, which is seen on prior EKGs dating back multiple years.. R wave progression across the precordium was satisfactory. By my interpretation this EKG is non-diagnostic for acute ischemia. Disposition Clinical Impression: UTI (urinary tract infection), Pulmonary nodule, Pyelonephritis, Abdominal pain Narrative: concern for pyelonephritis Disposition: HOME SELF-CARE Condition: Fair Instructions (If sedation given, give patient instructions): Urinary Tract Infection in Women (ED), Urinary Tract Infection in Women (DC), Pulmonary Nodules (ED) Prescriptions: Sulfamethox-Tmp 800-160Mg [Bactrim DS 800-160 mg] 1 tab PO Q12HR 14 Days #28 tab Famotidine [Pepcid] 20 mg PO DAILY #14 tablet Ondansetron Odt [Zofran Odt] 4 mg PO Q8HR PRN #9 tab PRN Reason: Nausea Is patient prescribed a controlled substance at d/c from ED?: No Referrals: Sanam Jensen MD [Primary Care Provider] - 1-2 days
--- NOTE | 2021-01-24 20:12 | CT ---
EXAMINATION TYPE: CT abdomen pelvis w con DATE OF EXAM: 01/24/2021 HISTORY: Epigastric, LT side abdomen pain. CT DLP: 1548.8mGycm Automated Exposure Control for Dose Reduction was Utilized. CONTRAST: CT scan of the abdomen and pelvis is performed with IV Contrast, patient injected with 100 mL of Isov ue 300. COMPARISON: 05/22/2020 FINDINGS: LUNG BASES: Subsegmental atelectasis with a 6 x 3.5 mm subpleural left lower lobe pulmonary nodule se melanie 204 image 6, new since prior. INCLUDED CARDIAC STRUCTURES: Unremarkable LIVER: No significant abnormality is appreciated. GALLBLADDER : Surgically removed BILIARY TREE: No abnormal biliary tree dilation. PANCREAS: No significant abnormality is seen. SPLEEN: No significant abnormality is seen. ADRENALS: No significant abnormality is seen. KIDNEYS AND URETERS: No significant abnormality is seen. URINARY BLADDER: No significant abnormality is appreciated. ESOPHAGUS: No significant abnormality is seen. STOMACH: No significant abnormality is seen. SMALL BOWEL: No significant abnormality is seen. LARGE BOWEL: No significant abnormality is seen. APPENDIX: No significant abnormality is seen. HERNIAS: No significant abnormality is seen. UTERUS/ADNEXA: Intrauterine contraceptive device noted. There is a 1.8 cm follicle or follicular cyst in the right adnexa/ovary. There are follicles or follicular cysts in the left adnexa/ovary. No appa rent abnormal pelvic fluid. PERITONEUM/MESENTRY: No pneumoperitoneum or ascites. LYMPH NODES: Prominent lymph nodes are again demonstrated in the kushal hepatis series 201 image 21. T here is a stable 1.4 cm lymph node along the left external iliac chain series 201 image 72. There is a stable benign-appearing lymph node along the right external iliac chain series 201 image 70. MAJOR VASCULAR STRUCTURES: Mild atherosclerotic soft and calcific intra-abdominal aorta with no evide nce of aneurysm. The inferior vena cava is unremarkable. OSSEOUS STRUCTURES: Mild straightening of the lumbar spine curvature is noted. No aggressive osseous lesion seen. No acute osseous abnormality. IMPRESSION: 1. No evidence of acute abdominal or pelvic process. 2.Subsegmental atelectasis with a 6 x 3.5 mm subpleural left lower lobe pulmonary nodule, new since p rior. This could be on the basis of infection or inflammation, neoplasm is felt to be less likely how ever cannot be entirely excluded, RECOMMENDATION: Regarding impression #2 the need for further follow-up and imaging should be determined on clinical b asis. Please refer to Fleischner criteria for additional recommendation regarding incidental pulmonar y nodule.
[2021-01-24] MEDS ORDERED: SULFAMETHOX-TMP 800-160MG 1 EACH TAB PO STA (20:52)
[2021-01-24 21:10] VITALS: BP 108/67; PULSE 80
== END 2021-01-24 21:15 | disposition home or self-care (01) ==
LOC: EC 16:32
DX: N12 Tubulo-interstitial nephritis, not specified as acute or chronic (principal); N39.0 Urinary tract infection, site not specified; R91.1 Solitary pulmonary nodule; M19.90 Unspecified osteoarthritis, unspecified site; F17.200 Nicotine dependence, unspecified, uncomplicated; Z79.82 Long term (current) use of aspirin; Z79.899 Other long term (current) drug therapy; Z87.19 Personal history of other diseases of the digestive system; Z90.49 Acquired absence of other specified parts of digestive tract; Z80.3 Family history of malignant neoplasm of breast; Z83.3 Family history of diabetes mellitus
CPT/HCPCS: 36415; 93005; 80053; 83605; 83690; 84484; 85025; 85610; 85730; 81001; 81025; 71045; 74177; 96374; 96375 ×2; 96361 ×4; 99284; J2270; J1200; J2765

== ENCOUNTER 2023-11-18 17:26 | Observation (INO) | payer OTHER ==
--- NOTE | 2023-11-18 18:11 | ED ---
General Adult HPI - General Chief complaint: Chest Pain Stated complaint: chest pain Time Seen by Provider: 11/18/23 17:38 Source: patient, RN notes reviewed, old records reviewed Mode of arrival: wheelchair Limitations: no limitations - History of Present Illness Initial comments: 48-year-old female presenting for evaluation of chest discomfort which began yesterday. Patient has no history of CAD. No associated vomiting or diaphoresis. No abdominal pain. Pain does radiate to the upper extremities. Pain began at rest. No cough or fever. - Related Data Home Medications Medication Instructions Recorded Confirmed Aspirin EC [Ecotrin] 325 mg PO DAILY 01/24/21 01/24/21 Previous Rx's Medication Instructions Recorded Famotidine [Pepcid] 20 mg PO DAILY #14 tablet 01/24/21 Ondansetron Odt [Zofran Odt] 4 mg PO Q8HR PRN #9 tab 01/24/21 Sulfamethox-Tmp 800-160Mg [Bactrim 1 tab PO Q12HR 14 Days #28 tab 01/24/21 DS 800-160 mg] Allergies Allergy/AdvReac Type Severity Reaction Status Date / Time adhesive Allergy Severe Rash/Hives Verified 11/18/23 17:31 tetanus immune globulin Allergy Severe Anaphylaxis Verified 11/18/23 17:31 banana Allergy Mild Rash/Hives Verified 11/18/23 17:31 PAIN MEDS AdvReac SEE Uncoded 01/24/21 16:47 COMMENTS Review of Systems ROS Statement: Those systems with pertinent positive or pertinent negative responses have been documented in the HPI. ROS Other: All systems not noted in ROS Statement are negative. Past Medical History Past Medical History: Osteoarthritis (OA) Additional Past Medical History / Comment(s): Gastritis. HAD GALLSTONE BLOCKING ASHLY DUCT, ERCP W/ STENT DONE AT [facility] 04/2018. HX RECENT JAUNDICE R/T INFLAMMATION LIVER/PANCREAS/KIDNEYS. History of Any Multi-Drug Resistant Organisms: None Reported Past Surgical History: Cholecystectomy, Joint Replacement, Orthopedic Surgery Additional Past Surgical History / Comment(s): TOTAL LEFT KNEE 12/2016. [facility]. ASHLY ELBOW CUBITAL TUNNEL. Kidney Stone Removal. 03/2018 EGD; ERCP; ERCP W/ STENT PLACED 04/23/18. Past Anesthesia/Blood Transfusion Reactions: Previous Problems w/ Anesthesia Additional Past Anesthesia/Blood Transfusion Reaction / Comment(s): TOOK LONGER TO WAKE UP W/ TOTAL KNEE SURGERY. Past Psychological History: No Psychological Hx Reported Smoking Status: Current every day smoker Past Alcohol Use History: None Reported Past Drug Use History: None Reported - Past Family History Mother Family Medical History: Diabetes Mellitus Additional Family Medical History / Comment(s): Patient reports history of cancer in the family including breast cancer, liver cancer, brain cancer, prostate cancer Father Family Medical History: Diabetes Mellitus Additional Family Medical History / Comment(s): heart patient General Exam Limitations: no limitations General appearance: alert, in no apparent distress Head exam: Present: atraumatic, normocephalic Eye exam: Present: normal appearance, PERRL ENT exam: Present: normal exam Neck exam: Present: normal inspection. Absent: tenderness, meningismus Respiratory exam: Present: normal lung sounds bilaterally. Absent: respiratory distress, wheezes Cardiovascular Exam: Present: regular rate, normal rhythm GI/Abdominal exam: Present: soft. Absent: distended, tenderness, guarding Extremities exam: Present: normal capillary refill. Absent: pedal edema Neurological exam: Present: alert, oriented X3, CN II-XII intact. Absent: motor sensory deficit Psychiatric exam: Present: normal affect, normal mood Skin exam: Present: warm, dry, intact. Absent: cyanosis, diaphoretic Course Vital Signs 11/18/23 11/18/23 17:27 19:08 Temperature 98.4 F Pulse Rate 70 63 Respiratory 16 16 Rate Blood Pressure 149/79 123/66 O2 Sat by Pulse 99 99 Oximetry Medical Decision Making - Medical Decision Making Was pt. sent in by a medical professional or institution (, PA, [employer], urgent care, hospital, or care home...) When possible be specific @ -No Did you speak to anyone other than the patient for history (EMS, parent, family, police, friend...)? What history was obtained from this source @ -No Did you review nursing and triage notes (agree or disagree)? Why? @ -I reviewed and agree with nursing and triage notes Were old charts reviewed (outside hosp., previous admission, EMS record, old EKG, old radiological studies, urgent care reports/EKG's, care home records)? Report findings @ -No old charts were reviewed Differential Chest Pain: Stable Angina, Unstable Angina, STEMI, NSTEMI Aortic Dissection, Pneumothorax, Musculoskeletal, Esophageal Spasm GERD, Cholecystitis, Pancreatitis, Zoster, th is is not meant to be an all-inclusive list. EKG interpreted by me (3pts min.). @ -[Sinus rhythm rate 66, AL interval 140, QRS duration 87, QTc 409, no ST segment changes. X-rays interpreted by me (1pt min.). @Chest x-ray negative for acute cardiopulmonary finding. CT interpreted by me (1pt min.). @ -None done U/S interpreted by me (1pt. min.). @ -None done What testing was considered but not performed or refused? (CT, X-rays, U/S, labs)? Why? @ -None What meds were considered but not given or refused? Why? @ -None Did you discuss the management of the patient with other professionals ( professionals i.e. , PA, [employer], lab, RT, psych nurse, social service manager, corporate financial analyst, teacher, loan review officer, case resource manager)? Give summary @ -No Was smoking cessation discussed for >3mins.? @ -No Was critical care preformed (if so, how long)? @ -No Were there social determinants of health that impacted care today? How? (Homelessness, low income, unemployed, alcoholism, drug addiction, transportation, low edu. Level, literacy, decrease access to med. care, [facility], rehab)? @ -No Was there de-escalation of care discussed even if they declined (Discuss DNR or withdrawal of care, Hospice)? DNR status @ -No What co-morbidities impacted this encounter? (DM, HTN, Smoking, COPD, CAD, Cancer, CVA, ARF, Chemo, Hep., AIDS, mental health diagnosis, sleep apnea, morbid obesity)? @ -None Was patient admitted / discharged? Hospital course, mention meds given and route, prescriptions, significant lab abnormalities, going to OR and other pertinent info. @ -[48-year-old female with chest pain rating to the bilateral upper extremities. Associated with lightheadedness. EKG sinus rhythm without ST segment elevation. Chest x-ray clear. Laboratory test including CBC, CMP, D- dimer, and initial troponin are negative. Patient will be observed with serial cardiac enzymes, telemetry, cardiology consultation. Case discussed with sound physician group. Undiagnosed new problem with uncertain prognosis? @ -No Drug Therapy requiring intensive monitoring for toxicity (Heparin, Nitro, Insulin, Cardizem)? @ -No Were any procedures done? @ -No Diagnosis/symptom? @Chest pain rule out Acute, or Chronic, or Acute on Chronic? @ -Acute Uncomplicated (without systemic symptoms) or Complicated (systemic symptoms)? @ -Default Side effects of treatment? @ -No Exacerbation, Progression, or Severe Exacerbation? @ -No Poses a threat to life or bodily function? How? (Chest pain, USA, ND, pneumonia, PE, COPD, DKA, ARF, appy, cholecystitis, CVA, Diverticulitis, Homicidal, Suicidal, threat to staff... and all critical care pts) @ -[Yes, ACS - Lab Data Result diagrams: 11/18/23 18:13 11/18/23 18:13 Lab Results 11/18/23 11/18/23 11/18/23 Range/Units 18:13 18:13 18:13 WBC 10.6 (3.8-10.6) k/uL RBC 4.17 (3.80-5.40) m/uL Hgb 12.7 (11.4-16.0) gm/dL Hct 38.6 (34.0-46.0) % MCV 92.7 (80.0-100.0) fL MCH 30.6 (25.0-35.0) pg MCHC 33.0 (31.0-37.0) g/dL RDW 13.6 (11.5-15.5) % Plt Count 189 (150-450) k/uL MPV 8.3 Neutrophils % 67 % Lymphocytes % 26 % Monocytes % 4 % Eosinophils % 1 % Basophils % 1 % Neutrophils # 7.1 (1.3-7.7) k/uL Lymphocytes # 2.7 (1.0-4.8) k/uL Monocytes # 0.4 (0-1.0) k/uL Eosinophils # 0.2 (0-0.7) k/uL Basophils # 0.1 (0-0.2) k/uL PT 9.8 L (10.0-12.5) sec INR 0.9 (<1.2) APTT 22.5 (22.0-30.0) sec D-Dimer 0.56 (<0.60) mg/L FEU Sodium (137-145) mmol/L Potassium (3.5-5.1) mmol/L Chloride (98-107) mmol/L Carbon Dioxide (22-30) mmol/L Anion Gap mmol/L BUN (7-17) mg/dL Creatinine (0.52-1.04) mg/dL Est GFR (CKD-EPI)AfAm (>60 ml/min/1.73 sqM) Est GFR (CKD-EPI)NonAf (>60 ml/min/1.73 sqM) Glucose (74-99) mg/dL Calcium (8.4-10.2) mg/dL Magnesium (1.6-2.3) mg/dL Total Bilirubin (0.2-1.3) mg/dL AST (14-36) U/L ALT (4-34) U/L Alkaline Phosphatase (38-126) U/L Troponin I (0.000-0.034) ng/mL Total Protein (6.3-8.2) g/dL Albumin (3.5-5.0) g/dL Urine Color Colorless Urine Appearance Cloudy H (Clear) Urine pH 6.0 (5.0-8.0) Ur Specific [place] 1.021 (1.001-1.035) Urine Protein Negative (Negative) Urine Glucose (UA) Negative (Negative) Urine Ketones Negative (Negative) Urine Blood Negative (Negative) Urine Nitrite Negative (Negative) Urine Bilirubin Negative (Negative) Urine Urobilinogen <2.0 (<2.0) mg/dL Ur Leukocyte Esterase Large H (Negative) Urine RBC 1 (0-5) /hpf Urine WBC 8 H (0-5) /hpf Ur Squamous Epith Cells 11 H (0-4) /hpf Urine Bacteria Rare H (None) /hpf Urine Mucus Rare H (None) /hpf 11/18/23 11/18/23 Range/Units 18:13 18:13 WBC (3.8-10.6) k/uL RBC (3.80-5.40) m/uL Hgb (11.4-16.0) gm/dL Hct (34.0-46.0) % MCV (80.0-100.0) fL MCH (25.0-35.0) pg MCHC (31.0-37.0) g/dL RDW (11.5-15.5) % Plt Count (150-450) k/uL MPV Neutrophils % % Lymphocytes % % Monocytes % % Eosinophils % % Basophils % % Neutrophils # (1.3-7.7) k/uL Lymphocytes # (1.0-4.8) k/uL Monocytes # (0-1.0) k/uL Eosinophils # (0-0.7) k/uL Basophils # (0-0.2) k/uL PT (10.0-12.5) sec INR (<1.2) APTT (22.0-30.0) sec D-Dimer (<0.60) mg/L FEU Sodium 139 (137-145) mmol/L Potassium 4.1 (3.5-5.1) mmol/L Chloride 108 H (98-107) mmol/L Carbon Dioxide 28 (22-30) mmol/L Anion Gap 3 mmol/L BUN 19 H (7-17) mg/dL Creatinine 0.73 (0.52-1.04) mg/dL Est GFR (CKD-EPI)AfAm >90 (>60 ml/min/1.73 sqM) Est GFR (CKD-EPI)NonAf >90 (>60 ml/min/1.73 sqM) Glucose 103 H (74-99) mg/dL Calcium 10.1 (8.4-10.2) mg/dL Magnesium 2.4 H (1.6-2.3) mg/dL Total Bilirubin 0.4 (0.2-1.3) mg/dL AST 26 (14-36) U/L ALT 18 (4-34) U/L Alkaline Phosphatase 89 (38-126) U/L Troponin I <0.012 (0.000-0.034) ng/mL Total Protein 7.1 (6.3-8.2) g/dL Albumin 4.1 (3.5-5.0) g/dL Urine Color Urine Appearance (Clear) Urine pH (5.0-8.0) Ur Specific [place] (1.001-1.035) Urine Protein (Negative) Urine Glucose (UA) (Negative) Urine Ketones (Negative) Urine Blood (Negative) Urine Nitrite (Negative) Urine Bilirubin (Negative) Urine Urobilinogen (<2.0) mg/dL Ur Leukocyte Esterase (Negative) Urine RBC (0-5) /hpf Urine WBC (0-5) /hpf Ur Squamous Epith Cells (0-4) /hpf Urine Bacteria (None) /hpf Urine Mucus (None) /hpf Disposition Clinical Impression: Chest pain Disposition: ADMITTED IP TO THIS HOSP Condition: Stable Is patient prescribed a controlled substance at d/c from ED?: No Referrals: Nonstaff,Physician [Primary Care Provider] - 1-2 days Time of Disposition: 19:36
[2023-11-18 18:27] LABS: Basophils # (A) 0.1 k/uL (0-0.2); Basophils % (A) 1 %; Eosinophils # (A) 0.2 k/uL (0-0.7); Eosinophils % (A) 1 %; HCT 38.6 % (34.0-46.0); HGB 12.7 gm/dL (11.4-16.0); Lymphocytes # (A) 2.7 k/uL (1.0-4.8); Lymphocytes % (A) 26 %; MCH 30.6 pg (25.0-35.0); MCV 92.7 fL (80.0-100.0); Mean Platelet Volume 8.3; Monocytes # (A) 0.4 k/uL (0-1.0); Monocytes % (A) 4 %; Neutrophils # (A) 7.1 k/uL (1.3-7.7); Neutrophils % (A) 67 %; Platelet Count 189 k/uL (150-450); RBC 4.17 m/uL (3.80-5.40); RDW 13.6 % (11.5-15.5); WBC 10.6 k/uL (3.8-10.6)
[2023-11-18 18:31] LABS: Appearance,Urine Cloudy (Clear); Bacteria,Urine Rare /hpf; Bilirubin,Urine Negative (Negative); Blood,Urine Negative (Negative); Color,Urine Colorless; Glucose,Urine (UA) Negative (Negative); Ketones,Urine Negative (Negative); Leukocyte Esterase,Urine Large (Negative); Mucus,Urine Rare /hpf; Nitrite,Urine Negative (Negative); Protein,Urine Negative (Negative); RBC,Urine 1 /hpf (0-5); Specific Gravity,Urine 1.021 (1.001-1.035); Squamous Epithelial Cell,Urine 11 /hpf (0-4); Urobilinogen,Urine <2.0 mg/dL (<2.0); WBC,Urine 8 /hpf (0-5)
[2023-11-18 18:40] LABS: INR 0.9 (<1.2); Partial Thromboplastin Time 22.5 sec (22.0-30.0); Prothrombin Time 9.8 sec (10.0-12.5)
[2023-11-18 18:45] LABS: ALT 18 U/L (4-34); AST 26 U/L (14-36); African American GFR (CKD) >90 (>60 ml/min/1.73 sqM); Albumin 4.1 g/dL (3.5-5.0); Alkaline Phosphatase 89 U/L (38-126); Anion Gap 3 mmol/L; Blood Urea Nitrogen 19 mg/dL (7-17); Calcium 10.1 mg/dL (8.4-10.2); Carbon Dioxide 28 mmol/L (22-30); Chloride 108 mmol/L (98-107); Glucose 103 mg/dL (74-99); Magnesium 2.4 mg/dL (1.6-2.3); Non-African American GFR(CKD) >90 (>60 ml/min/1.73 sqM); Potassium 4.1 mmol/L (3.5-5.1); Sodium 139 mmol/L (137-145); Total Bilirubin 0.4 mg/dL (0.2-1.3); Total Protein 7.1 g/dL (6.3-8.2)
--- NOTE | 2023-11-18 18:48 | XR ---
EXAMINATION TYPE: XR chest 2V DATE OF EXAM: 11/18/2023 6:34 PM CLINICAL INDICATION:Female, 48 years old with history of Chest Pain; COMPARISON: Chest radiographs from 01/24/2021. TECHNIQUE: XR chest 2V Frontal and lateral views of the chest. FINDINGS: Lungs/Pleura: There is no evidence of pleural effusion, focal consolidation, or pneumothorax. Pulmonary vascularity: Unremarkable. Heart/mediastinum: Cardiomediastinal silhouette is unremarkable. Musculoskeletal: No acute osseous pathology. IMPRESSION: No acute cardiopulmonary disease/process.
[2023-11-18] MEDS: SODIUM CHLORIDE 0.9% 1,000 ML IV STA (19:07)
[2023-11-18] MEDS ORDERED: NALOXONE 0.4 MG/ML 1 ML VIAL IV PRN (19:32)
[2023-11-18] MEDS ORDERED: ACETAMINOPHEN TAB 325 MG TAB PO PRN (19:32)
[2023-11-18] MEDS: ASPIRIN 325 MG TAB PO STA (20:37)
--- NOTE | 2023-11-19 00:18 | P.HPIM ---
History of Present Illness H&P Date: 11/18/23 Patient is a 48-year-old female with a PMH of tobacco abuse who presents to the emergency room with complaints of substernal chest tightness. Patient reports that the pain started yesterday morning, waxing and waning, substernal, nonpleuritic, 10 out of 10 at maximal intensity, currently rated at a 3 out of 10 at the time of interview, radiating to the neck and to the left arm with associated nausea, diaphoresis, and dizziness with some shortness of breath. Patient denies any prior history of such pain. Denies experiencing cough, fever, chills, abdominal pain, diarrhea. Chest x-ray in the emergency room was unremarkable with EKG showing sinus rhythm at [address]/T wave changes noted as reviewed by me. Laboratory evaluation was remarkable for troponin less than 0.012 with UA contaminated with magnesium 2.4, glucose 103, and WBC count 10.6 with D-dimer 0.56. ED documentation reviewed and case discussed with ED provider. Review of systems: Pertinent positives and negatives as discussed in HPI, a complete review of systems was performed and all other systems are negative. Physical examination: Vital signs reviewed General: non toxic, no distress, appears at stated age, obese Derm: no unusual rashes/lesions, warm Head: atraumatic, normocephalic, symmetric Eyes: EOMI, no lid lag, anicteric sclera, pupils equal round reactive to light ENT: Nose and ears atraumatic Neck: No cervical lymphadenopathy, trachea midline, supple Mouth: no lip lesion, mucus membranes moist Cardiovascular: S1S2 reg, no murmur, positive dorsalis pedis pulse bilateral, no edema Lungs: CTA bilateral, no rhonchi, no rales, no accessory muscle use Abdominal: soft, nontender to palpation, no guarding Ext: muscle strength 5 out of 5 in all 4 extremities grossly, no gross muscle atrophy, no contractures, Neuro: CN II-XI grossly intact, no gross focal neuro deficits Psych: Alert, oriented, appropriate affect Assessment: Chest pain, rule out ACS Imaging: Chest x-ray in the emergency room was unremarkable with EKG showing sinus rhythm at [address]/T wave changes noted as reviewed by me. Data Review: Laboratory evaluation was remarkable for troponin less than 0.012 with UA contaminated with magnesium 2.4, glucose 103, and WBC count 10.6 with D-dimer 0.56. Plan: Cardiology consult Cardiac monitoring Trend troponin Continue with aspirin and statin DVT prophylaxis: Lovenox subcu The patient is admitted with an anticipated less than 2 midnight stay for evaluation of chest pain CODE STATUS: Full Code Discussed with: Patient Anticipated discharge place: Home Past Medical History Past Medical History: Osteoarthritis (OA) Additional Past Medical History / Comment(s): Gastritis. HAD GALLSTONE BLOCKING ASHLY DUCT, ERCP W/ STENT DONE AT [facility] 04/2018. HX RECENT JAUNDICE R/T INFLAMMATION LIVER/PANCREAS/KIDNEYS. History of Any Multi-Drug Resistant Organisms: None Reported Past Surgical History: Cholecystectomy, Joint Replacement, Orthopedic Surgery Additional Past Surgical History / Comment(s): TOTAL LEFT KNEE 12/2016. [facility]. ASHLY ELBOW CUBITAL TUNNEL. Kidney Stone Removal. 03/2018 EGD; ERCP; ERCP W/ STENT PLACED 04/23/18. Past Anesthesia/Blood Transfusion Reactions: Previous Problems w/ Anesthesia Additional Past Anesthesia/Blood Transfusion Reaction / Comment(s): TOOK LONGER TO WAKE UP W/ TOTAL KNEE SURGERY. Past Psychological History: No Psychological Hx Reported Smoking Status: Current every day smoker Past Alcohol Use History: None Reported Past Drug Use History: None Reported - Past Family History Mother Family Medical History: Diabetes Mellitus Additional Family Medical History / Comment(s): Patient reports history of cancer in the family including breast cancer, liver cancer, brain cancer, p rostate cancer Father Family Medical History: Diabetes Mellitus Additional Family Medical History / Comment(s): heart patient Medications and Allergies Home Medications Medication Instructions Recorded Confirmed Type Gabapentin [Neurontin] 300 mg PO BID 11/18/23 11/18/23 History Allergies Allergy/AdvReac Type Severity Reaction Status Date / Time adhesive Allergy Severe Rash/Hives Verified 11/18/23 21:34 tetanus immune globulin Allergy Severe Anaphylaxis Verified 11/18/23 21:34 banana Allergy Mild Rash/Hives Verified 11/18/23 21:34 PAIN MEDS AdvReac SEE Uncoded 01/24/21 16:47 COMMENTS Physical Exam Vitals: Vital Signs Temp Pulse Resp BP Pulse Ox 11/18/23 22:00 75 14 128/71 100 11/18/23 19:08 63 16 123/66 99 11/18/23 17:27 98.4 F 70 16 149/79 99 Intake and Output 11/18/23 11/18/23 11/18/23 06:59 14:59 22:59 Other: Weight 86.183 kg Results CBC & Chem 7: 11/18/23 18:13 11/18/23 18:13 Labs: Abnormal Lab Results - Last 24 Hours (Table) 11/18/23 11/18/23 11/18/23 Range/Units 18:13 18:13 18:13 PT 9.8 L (10.0-12.5) sec Chloride 108 H (98-107) mmol/L BUN 19 H (7-17) mg/dL Glucose 103 H (74-99) mg/dL Magnesium 2.4 H (1.6-2.3) mg/dL Urine Appearance Cloudy H (Clear) Ur Leukocyte Esterase Large H (Negative) Urine WBC 8 H (0-5) /hpf Ur Squamous Epith Cells 11 H (0-4) /hpf Urine Bacteria Rare H (None) /hpf Urine Mucus Rare H (None) /hpf
[2023-11-19] MEDS: ATORVASTATIN 80 MG TAB PO STA (01:00)
[2023-11-19] MEDS: GABAPENTIN 300 MG CAP PO SCH (10:25)
[2023-11-19] MEDS: ENOXAPARIN 40 MG/0.4 ML SYRINGE SQ SCH (10:25)
[2023-11-19] MEDS: ASPIRIN 81 MG PO SCH (10:25)
--- NOTE | 2023-11-19 10:50 | P.CRDCN ---
History of Present Illness History of present illness: HISTORY OF PRESENT ILLNESS: This is a 48-year-old female with a past medical history significant for nicotine dependence. Patient does not follow with a systems analysis manager. We have been asked to see the patient in consultation for chest pain. Patient examined at the bedside in the emergency room. Patient states yesterday she was sitting on her couch drinking coffee when she began to have chest pain. She states the pain felt like somebody was taking her fist and pushing down on her chest. She states the pain radiated into her neck back, and down her left arm. She is unsure if the pain was worse with exertion. She states yesterday she felt lightheaded and short of breath. Denies any syncopal episodes at home. Patient is a current cigarette smoker. Patient reports a history of CAD in her mother and father. Her dad has had previous stenting and her mom had a CABG and then 4 years later. The patient currently denies any chest pain or pressure. She currently denies any shortness of breath. Vital signs are stable. DIAGNOSTICS: - EKG reveals sinus mechanism with no signs of acute ischemia. - Chest xray negative for acute process. - Laboratory data: WBC 10.6. Hemoglobin 12.7. Platelet count 189. D-dimer 0.56. Sodium 139. Potassium 4.1. BUN 19. Creatinine 0.73. Magnesium 2.4. Troponin negative x 3 - Current home cardiac medications include none. - Most recent echocardiogram obtained in March 2018 reveals ejection fraction 55 to 60%, trace MR, trace TR. REVIEW OF SYSTEMS: At the time of my exam: CONSTITUTIONAL: Denies fever or chills. HEENT: Denies blurred vision, vision changes, or eye pain. Denies hemoptysis CARDIOVASCULAR: Denies chest pain. Denies orthopnea. Denies PND. Denies palpitations RESPIRATORY: Denies shortness of breath. GASTROINTESTINAL: Denies abdominal pain. Denies nausea or vomiting. HEMATOLOGIC: Denies bleeding disorders. GENITOURINARY: Denies any blood in urine. SKIN: Denies pruitis. Denies rash. PHYSICAL EXAM: VITAL SIGNS: Reviewed. GENERAL: Well-developed in no acute distress. HEENT: Head is normocephalic. Pupils are equal, round. Sclerae anicteric. Mucous membranes of the mouth are moist. Neck supple. No JVD or thyromegaly LUNGS: Respirations even and unlabored. Lungs essentially clear to auscultation bilaterally. HEART: Regular rate and rhythm. S1 and S2 heard. ABDOMEN: Soft. Nondistended. Nontender. EXTREMITIES: Normal range of motion. No clubbing or cyanosis. Peripheral pulses intact. No lower extremity edema NEUROLOGIC: Awake and alert. Oriented x 3. ASSESSMENT: Chest pain, troponin negative x 3 Nicotine dependence Obesity: BMI 37.4 Family history of CAD PLAN: An acute coronary but has been ruled out Patient has been started on aspirin and atorvastatin per primary medicine Obtain 2D echo to assess cardiac structure and function Smoking cessation recommended. Defer nicotine patch to internal medicine. Patient to be referred to [place] quit line upon discharge. Patient to undergo stress echocardiogram today If negative, patient may be discharged home today from a cardiac standpoint Further recommendations pending patient course Nurse practitioner note has been reviewed by physician. Signing provider agrees with the documented findings, assessment, and plan of care documented by BENCH TOOL MAKER as a scribe. Past Medical History Past Medical History: Osteoarthritis (OA) Additional Past Medical History / Comment(s): Gastritis. HAD GALLSTONE BLOCKING ASHLY DUCT, ERCP W/ STENT DONE AT [facility] 04/2018. HX RECENT JAUNDICE R/T INFLAMMATION LIVER/PANCREAS/KIDNEYS. History of Any Multi-Drug Resistant Organisms: None Reported Past Surgical History: Cholecystectomy, Joint Replacement, Orthopedic Surgery Additional Past Surgical History / Comment(s): TOTAL LEFT KNEE 12/2016. ASHLY CTR. ASHLY ELBOW CUBITAL TUNNEL. Kidney Stone Removal. 03/2018 EGD; ERCP; ERCP W/ STENT PLACED 04/23/18. Past Anesthesia/Blood Transfusion Reactions: Previous Problems w/ Anesthesia Additional Past Anesthesia/Blood Transfusion Reaction / Comment(s): TOOK LONGER TO WAKE UP W/ TOTAL KNEE SURGERY. Past Psychological History: No Psychological Hx Reported Smoking Status: Current every day smoker Past Alcohol Use History: None Reported Past Drug Use History: None Reported - Past Family History Mother Family Medical History: Diabetes Mellitus Additional Family Medical History / Comment(s): Patient reports history of cancer in the family including breast cancer, liver cancer, brain cancer, prostate cancer Father Family Medical History: Diabetes Mellitus Additional Family Medical History / Comment(s): heart patient Medications and Allergies Home Medications Medication Instructions Recorded Confirmed Type Gabapentin [Neurontin] 300 mg PO BID 11/18/23 11/18/23 History Allergies Allergy/AdvReac Type Severity Reaction Status Date / Time adhesive Allergy Severe Rash/Hives Verified 11/18/23 21:34 tetanus immune globulin Allergy Severe Anaphylaxis Verified 11/18/23 21:34 banana Allergy Mild Rash/Hives Verified 11/18/23 21:34 PAIN MEDS AdvReac SEE Uncoded 01/24/21 16:47 COMMENTS Physical Exam Vitals: Vital Signs Temp Pulse Pulse Resp BP Pulse Ox 11/19/23 07:37 97.6 F 61 18 134/60 98 11/19/23 06:00 74 16 116/79 11/19/23 05:00 71 16 114/76 99 11/19/23 04:00 71 11/19/23 03:00 76 16 99 11/19/23 01:00 69 16 136/84 96 11/19/23 00:00 76 16 110/76 98 11/18/23 23:00 72 18 116/72 99 11/18/23 22:00 75 14 128/71 100 11/18/23 19:08 63 16 123/66 99 11/18/23 17:27 98.4 F 70 16 149/79 99 Intake and Output 11/18/23 11/19/23 11/19/23 22:59 06:59 14:59 Other: Weight 86.183 kg Results 11/18/23 18:13 11/18/23 18:13 Cardiac Enzymes 11/18/23 11/18/23 11/18/23 Range/Units 18:13 18:13 21:02 AST 26 (14-36) U/L Troponin I <0.012 <0.012 (0.000-0.034) ng/mL 11/19/23 Range/Units 00:51 AST (14-36) U/L Troponin I <0.012 (0.000-0.034) ng/mL Coagulation 11/18/23 Range/Units 18:13 PT 9.8 L (10.0-12.5) sec APTT 22.5 (22.0-30.0) sec CBC 11/18/23 Range/Units 18:13 WBC 10.6 (3.8-10.6) k/uL RBC 4.17 (3.80-5.40) m/uL Hgb 12.7 (11.4-16.0) gm/dL Hct 38.6 (34.0-46.0) % Plt Count 189 (150-450) k/uL Comprehensive Metabolic Panel 11/18/23 Range/Units 18:13 Sodium 139 (137-145) mmol/L Potassium 4.1 (3.5-5.1) mmol/L Chloride 108 H (98-107) mmol/L Carbon Dioxide 28 (22-30) mmol/L BUN 19 H (7-17) mg/dL Creatinine 0.73 (0.52-1.04) mg/dL Glucose 103 H (74-99) mg/dL Calcium 10.1 (8.4-10.2) mg/dL AST 26 (14-36) U/L ALT 18 (4-34) U/L Alkaline Phosphatase 89 (38-126) U/L Total Protein 7.1 (6.3-8.2) g/dL Albumin 4.1 (3.5-5.0) g/dL Current Medications Generic Name Dose Route Start Last Admin Trade Name Freq PRN Reason Stop Dose Admin Acetaminophen 650 mg 11/18/23 19:32 Acetaminophen Tab 325 Mg Tab PO Q6HR PRN Mild Pain or Fever > 100.5 Aspirin 81 mg 11/19/23 09:00 Aspirin 81 Mg PO DAILY [facility] Atorvastatin Calcium 80 mg 11/19/23 21:00 Atorvastatin 80 Mg Tab PO HS [facility] Enoxaparin Sodium 40 mg 11/19/23 09:00 Enoxaparin 40 Mg/0.4 Ml Syringe SQ DAILY [facility] Gabapentin 300 mg 11/19/23 09:00 Gabapentin 300 Mg Cap PO BID [facility] Naloxone HCl 0.2 mg 11/18/23 19:32 Naloxone 0.4 Mg/Ml 1 Ml Vial IV Q2M PRN Opioid Reversal Intake and Output 11/18/23 11/19/23 11/19/23 22:59 06:59 14:59 Other: Weight 86.183 kg 11/18/23 18:13 11/18/23 18:13
--- NOTE | 2023-11-19 11:36 | P.PN ---
Subjective Progress Note Date: 11/19/23 48-year-old female with a PMH of tobacco abuse who presents to the emergency room with complaints of substernal chest tightness. Patient reports that the pain started yesterday morning, waxing and waning, substernal, nonpleuritic, 10 out of 10 at maximal intensity, currently rated at a 3 out of 10 at the time of interview, radiating to the neck and to the left arm with associated nausea, diaphoresis, and dizziness with some shortness of breath. Patient denies any prior history of such pain. Denies experiencing cough, fever, chills, abdominal pain, diarrhea. Chest x-ray in the emergency room was unremarkable with EKG showing sinus rhythm at [address]/T wave changes noted as reviewed by me. Laboratory evaluation was remarkable for troponin less than 0.012 with UA contaminated with magnesium 2.4, glucose 103, and WBC count 10.6 with D-dimer 0.56. Troponin < 0.012 x 3, ACS ruled out. Cardiology consulted. Echo ordered. 11/18 Patient was seen and examined. Reports left chest pain, worse with deep inspiration and palpation. Echo is pending. Cardiology consulted, plans for stress test. General: non toxic, no distress, appears at stated age Derm: warm, dry Head: atraumatic, normocephalic, symmetric Eyes: EOMI, no lid lag, anicteric sclera Mouth: no lip lesion, mucus membranes moist Cardiovascular: S1S2 reg, no murmur Lungs: CTA bilateral, no rhonchi, no rales , no accessory muscle use Ext: no gross muscle atrophy, no edema, no contractures Neuro: no focal neuro deficits Psych: Alert, oriented, appropriate affect Chest pain: ASA 81 mg PO QD. Lipitor 80 mg PO QHS. Telemetry monitoring. Echo ordered. Cardiology consulted, plans for stress. Abnormal UA: No dysuria. No antibiotics. Tobacco abuse: Nicotine patch offered. Encouraged to quit. Morbid obesity: Structured weight loss program. Discharge planning based on results of stress test. CODE STATUS: FULL CODE DVT Prophylaxis: Lovenox SQ GI Prophylaxis: Designated medical POA if patient is not able to make medical decisions for themselves: I have reviewed the following commercial solar sales consultant notes: Cardiology. I have reviewed the results of the following tests: Troponin x 2. I have ordered the following tests: Echo. I have discussed the care of this patient with the following independent historian: I have independently interpreted the following test below: I have discussed the management of this patient with the following physician: Objective - Vital Signs Vital signs: Vital Signs Temp 97.6 F 11/19/23 07:37 Pulse 61 11/19/23 07:37 Resp 18 11/19/23 07:37 BP 134/60 11/19/23 07:37 Pulse Ox 98 11/19/23 07:37 FiO2 Intake & Output 11/18/23 11/19/23 11/19/23 18:59 06:59 18:59 Weight 86.183 kg - Labs CBC & Chem 7: 11/18/23 18:13 11/18/23 18:13 Labs: Abnormal Lab Results - Last 24 Hours (Table) 11/18/23 11/18/23 11/18/23 Range/Units 18:13 18:13 18:13 PT 9.8 L (10.0-12.5) sec Chloride 108 H (98-107) mmol/L BUN 19 H (7-17) mg/dL Glucose 103 H (74-99) mg/dL Magnesium 2.4 H (1.6-2.3) mg/dL Urine Appearance Cloudy H (Clear) Ur Leukocyte Esterase Large H (Negative) Urine WBC 8 H (0-5) /hpf Ur Squamous Epith Cells 11 H (0-4) /hpf Urine Bacteria Rare H (None) /hpf Urine Mucus Rare H (None) /hpf
--- NOTE | 2023-11-19 18:29 | P.DS ---
Providers Date of admission: 11/18/23 19:34 Expected date of discharge: 11/19/23 Attending physician: Johan Bowen MD Consults: 11/18/23 19:32 Consult Physician Routine Consulting Provider: Sukh Ellsworth Consult Reason/Comments: CP Do you want consulting provider notified?: Yes Primary care physician: Physician Nonstaff Hospital Course: 48-year-old female with a PMH of tobacco abuse who presents to the emergency room with complaints of substernal chest tightness. Patient reports that the pain started yesterday morning, waxing and waning, substernal, nonpleuritic, 10 out of 10 at maximal intensity, currently rated at a 3 out of 10 at the time of interview, radiating to the neck and to the left arm with associated nausea, diaphoresis, and dizziness with some shortness of breath. Patient denies any prior history of such pain. Denies experiencing cough, fever, chills, abdominal pain, diarrhea. Chest x-ray in the emergency room was unremarkable with EKG showing sinus rhythm at [address]/T wave changes noted as reviewed by me. Laboratory evaluation was remarkable for troponin less than 0.012 with UA contaminated with magnesium 2.4, glucose 103, and WBC count 10.6 with D-dimer 0.56. Troponin < 0.012 x 3, ACS ruled out. Cardiology consulted. Echo ordered. 11/18 Patient was seen and examined. Reports left chest pain, worse with deep inspiration and palpation. Echo is pending. Cardiology consulted, plans for stress test. Discussed with RN, patient wanted to leave AMA prior to stress test results. General: non toxic, no distress, appears at stated age Derm: warm, dry Head: atraumatic, normocephalic, symmetric Eyes: EOMI, no lid lag, anicteric sclera Mouth: no lip lesion, mucus membranes moist Cardiovascular: S1S2 reg, no murmur Lungs: CTA bilateral, no rhonchi, no rales , no accessory muscle use Ext: no gross muscle atrophy, no edema, no contractures Neuro: no focal neuro deficits Psych: Alert, oriented, appropriate affect Discharge Diagnosis: Chest pain Abnormal UA Tobacco abuse Morbid obesity This complex discharge took 35 minutes to complete. Patient Condition at Discharge: Critical Plan - Discharge Summary New Discharge Prescriptions: No Action Gabapentin [Neurontin] 300 mg PO BID Meclizine [Antivert] 25 mg PO TID PRN PRN Reason: Vertigo Discharge Medication List Gabapentin [Neurontin] 300 mg PO BID 11/18/23 [History] Meclizine [Antivert] 25 mg PO TID PRN 11/19/23 [History] Follow up Appointment(s)/Referral(s): Nonstaff,Physician [Primary Care Provider] - 1-2 days Discharge Disposition: LEFT AGAINST MEDICAL ADVICE
[2023-11-19 18:42] VITALS: BP 136/86; PULSE 86; RESP 18; TEMP 98.2
--- NOTE | 2023-11-19 19:18 | CA ---
Transthoracic Echo Report Name: Dana Vivar Age: 48 Gender: F : 1975 Exam Date: 11/19/2023 10:59 Exam Location: [place] [facility] Ht (in): 59 Wt (lb): 190 Ordering Physician: Jonah Raza MD Attending/Referring Phys: Bottle Capping Machine Operator Shruthi Godoy RDCS Procedure CPT: Indications: CP Cardiac Hx: Technical Quality: Technically difficult study Contrast 1: Definity Total Dose (mL): 2 Contrast 2: Total Dose (mL): MEASUREMENTS (Male / Female) Normal Values 2D ECHO LV Diastolic Diameter PLAX 5.2 cm 4.2 - 5.9 / 3.9 - 5.3 cm LV Systolic Diameter PLAX 3.5 cm IVS Diastolic Thickness 0.6 cm 0.6 - 1.0 / 0.6 - 0.9 cm LVPW Diastolic Thickness 1.0 cm 0.6 - 1.0 / 0.6 - 0.9 cm LV Relative Wall Thickness 0.3 RV Internal Dim ED PLAX 2.7 cm LVOT Diameter 1.9 cm LV Diastolic Volume MOD 4C 106.1 cm??? LV Systolic Volume MOD 4C 35.6 cm??? LV Ejection Fraction MOD 4C 66.5 % LV Cardiac Index MOD 4C 1924.0 cm???/min???m??? LV Diastolic Length 4C 7.5 cm LV Systolic Length 4C 6.0 cm Ascending Aorta Diameter 2.7 cm DOPPLER AV Peak Velocity 131.8 cm/s AV Peak Gradient 6.9 mmHg AV Mean Velocity 90.3 cm/s AV Mean Gradient 3.6 mmHg AV Velocity Time Integral 30.6 cm LVOT Peak Velocity 107.2 cm/s LVOT Peak Gradient 4.6 mmHg LVOT Velocity Time Integral 23.7 cm LVOT Stroke Volume 65.8 cm??? LVOT Stroke Volume Index 36.5 ml/m??? LVOT Cardiac Index 1795.0 cm???/min???m??? AV Area Cont Eq vti 2.2 cm??? AV Area Cont Eq pk 2.3 cm??? MV Area PHT 4.4 cm??? Mitral E Point Velocity 83.1 cm/s Mitral A Point Velocity 56.2 cm/s Mitral E to A Ratio 1.5 MV Deceleration Time 172.4 ms PV Peak Velocity 84.2 cm/s PV Peak Gradient 2.8 mmHg FINDINGS Left Ventricle Left ventricular ejection fraction is estimated at 55-60 %. Left ventricular cavity size normal. Left ventricular wall thickness normal. No obvious regional wall motion abnormalities. Right Ventricle Normal right ventricular size and function. Unable to estimate the right ventricular systolic pressure. Right Atrium Normal right atrial size. Left Atrium Normal left atrial size. Mitral Valve Structurally normal mitral valve. No mitral stenosis, regurgitation or prolapse. Aortic Valve Trileaflet aortic valve. No aortic valve stenosis or regurgitation. Tricuspid Valve Structurally normal tricuspid valve. No tricuspid stenosis, regurgitation or prolapse. Pulmonic Valve No pulmonic stenosis. No pulmonic regurgitation. Pericardium No pericardial effusion. Aorta Normal size aortic root and proximal ascending aorta. CONCLUSIONS Technically difficult study for interpretation. Poorly visualized endocardial Normal LV systolic function Previewed by: Dr. Sukh Ellsworth MD (Electronically Signed) Final Date: 19 Nov 2023 19:18
--- NOTE | 2023-11-19 19:20 | CA ---
Stress Echo Report Dana Vivar Age: 48 Gender: F : 1975 Exam Date: 11/19/2023 12:25 Exam Location: [place] [facility] Ht (in): 60 Wt (lb): 190 Ordering Physician: Awilda Stone Referring Physician: [id number] Floriculture Professor: Shruthi Godoy RDCS Technologist Procedure CPT: Indication: CP ICD-9 Codes: Rhythm: Patient History: CP, GERALDO, NUMBNESS FACE/NECK, TOB Cardiac Medications: SEE CHART Medications in past 24 hours: Contrast: Definity Stress Results Protocol: Usman Total dose(mL): 3 Exercise Duration (min:sec): 4:[address] Depression (mm): Angina Score: Calzada Score: METS: 7.1 Resting HR: 76 Resting BP: 119 / 68 Peak HR: 156 Peak BP: 170 / 61 Max Predicted HR: 173 90 % Max Predicted HR Target HR: 147 Double Product: 55186 Stress Summary: BP Response: Reason for Termination: Reached target heart rate or work-load Cardiac Symptoms: BURNING IN CHEST "7" SUBSIDED AT REST ECG Analysis Resting ECG: Stress ECG: Arrhythmia: Echo Analysis Resting Echo: Peak Echo Analysis: MEASUREMENTS (Male/Female) Normal Values CONCLUSIONS Average exercise tolerance Mild EKG changes in response to exercise Normal echocardiogram in response to exercise Dr. Sukh Ellsworth MD (Electronically Signed) Final Date: 19 Nov 2023 19:20
[2023-11-19] MEDS ORDERED: ATORVASTATIN 80 MG TAB PO SCH (21:00)
== END 2023-11-19 18:01 | disposition left against medical advice (07) ==
LOC: EC 17:26 → 6NMEDSUR 19:34
PROVIDERS: ADMIT Internal Medicine; ATTEND Internal Medicine
DX: R07.89 Other chest pain (principal); R82.90 Unspecified abnormal findings in urine; F17.210 Nicotine dependence, cigarettes, uncomplicated; E66.01 Morbid (severe) obesity due to excess calories; M19.90 Unspecified osteoarthritis, unspecified site; Z90.49 Acquired absence of other specified parts of digestive tract; Z82.49 Family history of ischemic heart disease and other diseases of the circulatory system
CPT/HCPCS: 96360; 96361 ×2; 96372; 99285; 36415; 93005; 93306; 93351; 85379; 80053; 83735; 84484 ×2; 85025; 85610; 85730; 81001; 71046; G0378 ×2; J1650; Q9957